=== PATIENT | female | born 1980 | race Caucasian/White ===

== ENCOUNTER 2018-05-10 06:55 | Inpatient (IN) | payer OTHER, SELFPAY ==
[2018-05-10 07:33] VITALS: BMI 32.8
[2018-05-10] MEDS: Lactated Ringers 1,000 ML 50 ML IV ×2 (07:50→13:30)
[2018-05-10] MEDS: Oxytocin 30 units/NS 500 ml 30 UNITS/500 ML IV.SOLN IV (08:00)
[2018-05-10 08:08] LABS: Hematocrit 35.5 % (37-47); Hemoglobin 11.4 g/dl (12.0-15.0); Mean Corp Hgb Conc 32.1 g/gl (32-36); Mean Corpuscular Hgb 29.5 pg (27.0-32.0); Mean Platelet Vol. 11.4 fl (6.2-12.0); Platelet Count 169 K/mm3 (150-450); RBC Distribution Width CV 15.1 % (11.6-14.6); RBC Distribution Width SD 50.6 fl (35.1-43.9); Red Blood Count 3.86 M/mm3 (4.2-5.4); White Blood Count 10.9 K/mm3 (4.4-11.0)
[2018-05-10 08:09] LABS: Scan Indicated on CBC? Y/N NO
--- NOTE | 2018-05-10 09:10 | PCM.HP.OB ---
- Problem List (1) History of spontaneous Status: Acute (2) Port wine stain Status: Acute (3) Advanced maternal age (AMA) in Status: Acute (4) History of precipitous delivery Status: Acute (5) Grand multipara in labor Status: Acute History Date of Admission: 05/10/18 Final FLAKO: 05/07/18 Final FLAKO Source: LMP Gestational age: 40 Weeks and 3 Days History of this : This is a 37 year-old, G [8], P [5005], at 40 weeks gestational age. Presents to L&D for Induction of Labor with Pitocin due to Advanced Maternal Age and post dates. See OB history. Allergies No Known Allergies Allergy (Verified 05/10/18 08:14) Home Medications: Home Medications Ferrous Sulfate [Iron] 1 tab PO DAILY 05/10/18 Magnesium Oxide [Magnesium] 1 tab PO DAILY 05/10/18 Pnv No.103/Folic/Om3s/Fish Oil [ Gummies] 2 tab PO DAILY 05/10/18 Smoking Status: Never smoker Alcohol: None Heart Tracin, moderate variability, accels, occasional variable decels, Category 2 TOCO Analysis: Irregular, mild to palpation. History Past Pregnancies: Past Pregnancies Delivery Date Name GA/Weeks Outcome Route Weight Gender Labor Length Anesthesia Delivery Location Provider FOB Labs: GBS negative RPR negative Rubella Immune HBsAG negative HIV negative Blood type A positive GC/CT negative Expected Delivery Method: Spontaneous Vaginal Review of Systems Constitutional: Denies: Chills, Fever, Weight Change HEENT: Denies: Head Aches, Sinus Congestion, Sinus Drainage Cardiovascular: Denies: Chest Pain, Palpitations Respiratory: Denies: Cough, Shortness of breath at rest, Sputum production Gastrointestinal: Denies: Abdominal Pain, Nausea, Vomiting Genitourinary: Denies: Dysuria Musculoskeletal: Denies: Joint Pain, Joint Tenderness Psychiatric: Denies: Anxiety, Depression, Homicidal Ideations, Suicidal Ideations Physical Exam General: Alert, Oriented x3, No apparent distress HEENT: Atraumatic, Normocephalic Cardiovascular: Regular rate, Regular Rhythm, No murmurs Lungs: Clear to auscultation, Normal air movement, No rhonchi, No wheeze Abdomen: Gravid Extremities:: No edema Neurological: Deep Tendon Reflexes 2+/4 and Symmetrical. Negative for: Clonus Estimated gestational size: Appropriate for gestational size Presentation: Cephalic Cervix Dilation (cm): 4 Station: -2 Effacement (%): 60 Assessment/Plan All Active Problems History of spontaneous (Acute) Port wine stain (Acute) Advanced maternal age (AMA) in (Acute) History of precipitous delivery (Acute) Grand multipara in labor (Acute) This is a 37 year-old, G [8], P [9845], at 40 weeks gestational age. A: Induction of Labor for AMA and postdates Category 1 FHT P: 1) Admit to L&D for IOL 2) Routine L&D orders. Continuous monitoring 3) Requesting unmedicated but open to epidural if needed. 4) for collaborative physician. Notified of plan of care. Lynn Matute APRN, CNM
[2018-05-10] MEDS: Acetaminophen 325 MG Tablet PO (12:06)
--- NOTE | 2018-05-10 13:28 | PCM.PN.OB ---
Patient Problems: Active and Suspected Problems History of spontaneous (Acute) Port wine stain (Acute) Advanced maternal age (AMA) in (Acute) History of precipitous delivery (Acute) Grand multipara in labor (Acute) Subjective: Into shower for pain relief effective for period of time. Back to bed and requesting nitrous. Coped well with nitrous but increasing pain and requesting epidural. supportive at the bedside. Objective: 135, minimal variability, no accel, no decel, Category 2 Contractions every 2 minutes. Pitocin off ROM small amount of light meconium 6cm/80%/-1 - Physical Exam Weight: 191 lb 9.6 oz Body Mass Index (BMI) 32.8 Intake and Output for Last 24 Hours 05/08/18 05/09/18 05/10/18 23:59 23:59 23:59 Intake Total 61 / 61 Output Total 100 / 100 Balance -39 / -39 Laboratory Tests Past 24 Hrs 05/10/18 05/10/18 07:50 07:50 WBC 10.9 RBC 3.86 L Hgb 11.4 L Hct 35.5 L MCV 92.0 MCH 29.5 MCHC 32.1 RDW 15.1 H RDW Differential 50.6 H Plt Count 169 MPV 11.4 Blood Type A POSITIVE Antibody Screen NEGATIVE Medical Necessity - Tobacco Use Smoking Status: Never smoker Assessment/Plan All Active Problems History of spontaneous (Acute) Port wine stain (Acute) Advanced maternal age (AMA) in (Acute) History of precipitous delivery (Acute) Grand multipara in labor (Acute) A:Active Labor, progressing Category 2 FHT P: 1) Anesthesia notified of patient requesting epidural. 2) Continuos labor support, coping well
[2018-05-10] MEDS: fentaNYL-bupivacaine (epidural) 100 ML BAG EPIDURAL (14:20)
[2018-05-10] MEDS: Oxytocin 30 units/NS 500 ml 30 UNITS/500 ML IV.SOLN 334 UNITS IV (16:13)
--- NOTE | 2018-05-10 16:29 | PCM.OB.VAG ---
- Problem List (1) History of spontaneous Status: Acute (2) Port wine stain Status: Acute (3) Advanced maternal age (AMA) in Status: Acute (4) History of precipitous delivery Status: Acute (5) Grand multipara in labor Status: Acute (6) Vaginal delivery Status: Acute (7) Shoulder dystocia, delivered Status: Acute (8) First degree perineal laceration during delivery Status: Acute Vaginal Delivery Maternal Presentation: Medically Indicated Induction - Advanced Maternal Age Amniotic Membrane Rupture Type: Artificial - Small amount of light meconium stained fluid Amniotic Fluid Description: Lightly stained meconium Final FLAKO: 05/07/18 Gestational age: 40 Weeks and 3 Days Date of Procedure: 05/10/18 Pre-Operative Diagnosis: Induction of Labor with Pitocin Post-Operative Diagnosis: Surgery/ Procedure Performed: Spontaneous Vaginal Delivery Type of Anesthesia: Epidural Description of Procedure: Progressed to complete with urge to push. Epidural for analgesia. of viable female infant over first degree perineal laceration. APGARS 8, 9. Weight pending. Delivery complicated by shoulder dystocia. head delivered with positive turtle sign and shoulders not forthcoming. McRobert's position with Suprapubic pressure applied. Woodscrew maneuver and attempted to remove posterior arm, anterior shoulder forthcoming and delivered. Placed on maternal abdomen, mouth and nares suctioned, infant stimulated, strong cry and good tone. Left skin to skin, Dr. Street present for delivery. Cord clamped and cut after 30 second delayed clamping. Cord gases obtained. Pitocin started for active 3rd stage management. Placenta delivered with maternal effort, intact, 3 vessel cord. Perineum inspected and revealed first degree perineal laceration. Repaired with epidural and 3.0 vicryl. Well approximated and hemostasis achieved. Fundus firm, EBL 200ml, hemostasis achieved. Planning to breastfeed. Mom and baby stable. Family bonding well. notified of delivery. Presentation: Vertex Placental Delivery Description: Spontaneous Placenta Disposition: [facility] Cord Vessel Description: 3 Vessels Cord Gases drawn per routine: ABG, VBG Cord Entanglement: None Estimated Blood Loss: 200ml Infant A gender: Female (1 minute): 8 (5 minute): 9 Episiotomy Description: None Laceration: Perineal Extension/lac, 1st degree Medications given after delivery: IV Pitocin
--- NOTE | 2018-05-10 16:37 | OP.PCM_ITS ---
- Problem List (1) History of spontaneous Status: Acute (2) Port wine stain Status: Acute (3) Advanced maternal age (AMA) in Status: Acute (4) History of precipitous delivery Status: Acute (5) Grand multipara in labor Status: Acute (6) Vaginal delivery Status: Acute (7) Shoulder dystocia, delivered Status: Acute (8) First degree perineal laceration during delivery Status: Acute Vaginal Delivery Maternal Presentation: Medically Indicated Induction - Advanced Maternal Age Amniotic Membrane Rupture Type: Artificial - Small amount of light meconium sta ined fluid Amniotic Fluid Description: Lightly stained meconium Final FLAKO: 05/07/18 Gestational age: 40 Weeks and 3 Days Date of Procedure: 05/10/18 Pre-Operative Diagnosis: Induction of Labor with Pitocin Post-Operative Diagnosis: Surgery/ Procedure Performed: Spontaneous Vaginal Delivery Type of Anesthesia: Epidural Description of Procedure: Progressed to complete with urge to push. Epidural for analgesia. of viable female over first degree perineal laceration. APGARS 8, 9. Weight pending. Delivery complicated by shoulder dystocia. Infant head delivered with positive turtle sign and shoulders not forthcoming. McRobert's position with Suprapubic pressure applied. Woodscrew maneuver and attempted to remove posterior arm, anterior shoulder forthcoming and delivered. Placed on maternal abdomen, mouth and nares suctioned, infant stimulated, strong cry and good tone. Left skin to skin, Dr. Street present for delivery. Cord clamped and cut after 30 second delayed clamping. Cord gases obtained. Pitocin started for active 3rd stage management. Placenta delivered with maternal effort, intact, 3 vessel cord. Perineum inspected and revealed first degree perineal laceration. Repaired with epidural and 3.0 vicryl. Well approximated and hemostasis achieved. Fundus firm, EBL 200ml, hemostasis achieved. Planning to breastfeed. Mom and baby stable. Family bonding well. notified of delivery. Presentation: Vertex Placental Delivery Description: Spontaneous Placenta Disposition: [facility] Cord Vessel Description: 3 Vessels Cord Gases drawn per routine: ABG, VBG Cord Entanglement: None Estimated Blood Loss: 200ml Infant A gender: Female (1 minute): 8 (5 minute): 9 Episiotomy Description: None Laceration: Perineal Extension/lac, 1st degree Medications given after delivery: IV Pitocin
[2018-05-10] MEDS: Oxytocin 30 units/NS 500 ml 30 UNITS/500 ML IV.SOLN 167 UNITS IV (16:43)
[2018-05-10] MEDS: Ibuprofen 600 MG Tablet PO (19:08)
[2018-05-10 20:45] VITALS: BP 116/57; PULSE 93; RESP 16; TEMP 37.1; O2SAT 97
[2018-05-10] MEDS: Acetaminophen 500 MG Tablet 1000 MG PO (21:26)
[2018-05-11 00:13] VITALS: BP 110/63; PULSE 83; RESP 16; TEMP 36.6; O2SAT 95
[2018-05-11 04:50] VITALS: BP 108/66; PULSE 86; RESP 14; TEMP 36.6; O2SAT 97
[2018-05-11 08:00] VITALS: BP 107/60; PULSE 92; RESP 18; TEMP 36.7
[2018-05-11] MEDS: Ibuprofen 600 MG Tablet PO (08:49)
[2018-05-11 13:56] VITALS: BP 107/65; PULSE 95; RESP 16; TEMP 36.6
--- NOTE | 2018-05-11 14:17 | PCM.PN.OB ---
Patient Problems: Active and Suspected Problems History of spontaneous (Acute) Port wine stain (Acute) Advanced maternal age (AMA) in (Acute) History of precipitous delivery (Acute) Grand multipara in labor (Acute) Vaginal delivery (Acute) Shoulder dystocia, delivered (Acute) First degree perineal laceration during delivery (Acute) Subjective: Doing well per patient and nursing staff. Voiding and passing flatus. without difficulty. Pain controlled. Denies headache, visual change's, chest pain, shortness of breath, increased vaginal bleeding or clots. Planning D/C home today. - Physical Exam General: Alert, Oriented x3, Cooperative HEENT: Atraumatic, Normocephalic Lungs: Clear to auscultation, Normal air movement, No rhonchi, No wheeze Cardiovascular: Regular rate, Regular Rhythm, No murmurs Abdomen: Bowel Sounds Present, - - fundus firm 2 below U Neurological: Deep Tendon Reflexes 2+/4 and Symmetrical Psych/Mental Status: Normal Affect, Appropriate Vital Signs Temp Pulse Resp BP Pulse Ox 97.9 F 95 16 107/65 97 05/11/18 13:56 05/11/18 13:56 05/11/18 13:56 05/11/18 13:56 05/11/18 04:50 Oxygen Delivery Method Room Air Weight: 191 lb 9.6 oz Body Mass Index (BMI) 32.8 Intake and Output for Last 24 Hours 05/09/18 05/10/18 05/11/18 23:59 23:59 23:59 Intake Total 61 / 61 Output Total 350 / 350 Balance -289 / -289 Medical Necessity - Tobacco Use Smoking Status: Never smoker Assessment/Plan All Active Problems History of spontaneous (Acute) Port wine stain (Acute) Advanced maternal age (AMA) in (Acute) History of precipitous delivery (Acute) Grand multipara in labor (Acute) Vaginal delivery (Acute) Shoulder dystocia, delivered (Acute) First degree perineal laceration during delivery (Acute) A:PPD #1 P: 1) Routine care 2) Discharge instructions and instructions given 3) Follow up in 2 weeks and 6 weeks for visit.
--- NOTE | 2018-05-11 14:24 | DCINST_ITS ---
Discharge Diet: No Restrictions Discharge Activity: Return to Normal Activity May resume sexual activity in: 4-6 weeks Weight Bearing Status: Full weight bearing Call your doctor if your incision/area has: Continuous Slow Oozing, Sudden Increased Bleeding, Increased Pain/ Swelling, Increased Redness, Foul Smelling Discharge Call your doctor if you observe: Fever of 101 or Higher, Coldness, Increased Pain, Numbness or Tingling, Inability to urinate, Inability to have a bowel movement, Using more than one pad per hour, Shortness of breath, Chest pain, Increased palpitations (irregular heartbeat), Calf discomfort, Uncontrolled pain Additional Instructions: If you experience any of the following, contact your healthcare provider. * Bleeding that soaks a pad every hour for 2 hours * Fever 100.4 or higher * Unrelieved incision or abdominal pain * Swelling, redness, discharge or bleeding from your incision or episiotomy site * Your incision begins to separate * Problems urinating (including inability to urinate or burning while urinating). * Visual changes * Severe headache * Flu-like symptoms * Pain or redness in one of both of your breasts * Pain, warmth, tenderness or swelling in your legs, especially the calf area * Frequent nausea and vomiting * Symptoms of depression or anxiety If you experience any of the following, call 911 or go to the nearest Emergency Room. * Chest pain * Problems breathing * Seizure activity * Partial or complete paralysis of a body part, slurred speech, weakness or drooping of the face, or a sudden inability to walk or hold your balance Allergies/Adverse Reactions: Allergies No Known Allergies Allergy (Verified 05/10/18 08:14) Medications to take at Discharge Pnv No.103/Folic/Om3s/Fish Oil [ Gummies] 2 tab PO DAILY 05/10/18 Acetaminophen [Tylenol] 1,000 mg PO Q8H PRN PRN tablet 05/11/18 Ibuprofen [Motrin] 600 mg PO Q6H PRN PRN #30 tablet 05/11/18 The following prescriptions were given: Ibuprofen [Motrin] 600 mg PO Q6H PRN PRN #30 tablet PRN Reason: Mild Pain (1-07/28) Please Follow Up With: Lynn Matute CNM When: Call to make an appointment with your doctor in 2 weeks and 6 weeks. If you had elevated Blood Pressure or 4th degree laceration you will need to be seen in 2 weeks. Primary Care Physician: Klever Reyes,Out of [Primary Care Provider] - Test Results: Test results from this visit will be discussed in further detail at your follow- up appointment, if applicable.
== END 2018-05-11 17:55 | disposition home or self-care (01) | DRG 807 ==
PROVIDERS: Admitting Provider Obstetrics & Gynecology; Referring Provider Obstetrics & Gynecology; Visit Provider Obstetrics & Gynecology
DX: O48.0 Post-term pregnancy (principal); Z37.0 Single live birth; O70.0 First degree perineal laceration during delivery; O26.23 Pregnancy care for patient with recurrent pregnancy loss, third trimester; O77.0 Labor and delivery complicated by meconium in amniotic fluid; Z3A.40 40 weeks gestation of pregnancy; Q82.5 Congenital non-neoplastic nevus
CPT/HCPCS: 59050; 85027; 86850; 86900; 99218; J7120; G0378

== ENCOUNTER 2020-02-11 06:35 | Inpatient (IN) | payer OTHER, SELFPAY ==
[2019-02-21 18:32] VITALS: BMI 26.5
[2020-02-11] VITALS (37 sets, daily range): BP systolic 97–116; BP diastolic 55–67; PULSE 71–161; RESP 16; TEMP 36.6–37.1; O2SAT 79–100; BMI 29.7
[2020-02-11] MEDS: Lactated Ringers 1,000 ML 50 ML IV (07:35)
[2020-02-11] MEDS: Oxytocin 30 units/NS 500 ml 30 UNITS/500 ML IV.SOLN IV (07:45)
[2020-02-11 08:23] LABS: Absolute Neutrophil Count 10.1 X10^3/uL (2.0-7.7); Basophil# 0.06 X10^3/uL; Basophil% 0.4 % (0-1); Eosinophil# 0.36 X10^3/uL; Eosinophils% 2.7 % (0-5); Hematocrit 31.9 % (37-47); Hemoglobin 9.7 g/dL (12.0-15.0); Lymphocyte % 12.5 % (19-41); Mean Corp Hgb Conc 30.4 g/dL (32-36); Mean Corpuscular Hgb 26.9 pg (27.0-32.0); Mean Corpuscular Volume 88.6 fL (81-99); Monocyte# 1.11 X10^3/uL; Monocyte% 8.2 % (0-10); NRBC Flagged by Analyzer 0 % (0-5); Neutrophil # 10.07 X10^3/uL (2.7-7.7); Neutrophil % 74.4 % (47-70); Platelet Count 205 K/mm3 (150-450); RBC Distribution Width CV 13.8 % (11.6-14.6); RBC Distribution Width SD 44.4 fl (35.1-43.9); White Blood Count 13.6 K/mm3 (4.4-11.0)
[2020-02-11] MEDS: Lactated Ringers 500 ML 999 ML IV (08:25)
--- NOTE | 2020-02-11 08:46 | PCM.HP.OB ---
History Date of Admission: 05/10/18 Final FLAKO: 02/17/20 Final FLAKO Source: LMP Gestational age: 39 Weeks and 1 Days History of this : This is a 39 year-old 9 para 6-0-2-6 @39-1/7 weeks gestation with a EDC of 02/17/2020 presents for induction of labor due to having 19 during and urine for possible adverse outcomes after COVID 19 infection. Had some irregular contractions. She denies any vaginal bleeding or leaking of fluid. has been complicated to date byCovid 19 infection, ho shoulder dystocia in one previous and advanced maternal age. Medical history significant for migraine headaches, kidney stones, port wine stain, and anemia and irritable bowel syndrome Past deliveries are significant for history of a precipitous delivery, and also history of a shoulder dystocia with her largerst infant it was mild and there were no adverse maternal or outcomes. Medical History: Medical History (Last Updated 02/21/19 @ 18:41 by Clemencia Garcia TEXTILE DESIGNS SALES REPRESENTATIVE, TEXTILE DESIGNS SALES REPRESENTATIVE-C) Miscarriage O03.9 2 out of 8 pregnancies lazor surgery on the R arm for her port wine Surgical History: Surgical History (Last Updated 02/21/19 @ 18:41 by Clemencia Garcia TEXTILE DESIGNS SALES REPRESENTATIVE, TEXTILE DESIGNS SALES REPRESENTATIVE-C) Port-wine stain of skin Q82.5 cyst i each breast after the last 2 pregnanacies both benign mammogram neg at age 38 Allergies No Known Allergies Allergy (Verified 02/11/20 08:27) Home Medications: Home Medications Aspirin [Aspirin, Baby] 81 mg PO QHS 02/11/20 Smoking Status: Never smoker Alcohol: None Number of Fetus(es): 1 History Past Pregnancies: Past Pregnancies Delivery Date Name GA/ Weeks Outcome Route Wt Infant Sex Labor Length Anesthesia Delivery Location Provider FOB Expected Delivery Method: Spontaneous Vaginal Review of Systems Constitutional: Denies: Chills, Fever Eyes: Denies: Blurred vision Cardiovascular: Denies: Chest Pain Respiratory: Denies: Cough, Shortness of Breath Gastrointestinal: Denies: Diarrhea, Vomiting Genitourinary: Denies: Dysuria Neurological: Denies: Balance problems, Blurred vision, Change in Speech, Confusion Hematologic/ Lymphatic: Denies: Anemia, Hx of blood clot Physical Exam Vitals: Vital Signs Temp Pulse BP Pulse Ox 98.2 F 90 107/63 100 02/11/20 08:17 02/11/20 08:18 02/11/20 08:17 02/11/20 08:18 General: Alert, Cooperative, No apparent distress Cardiovascular: Regular rate Lungs: Normal air movement Abdomen: Soft, Non Tender, Non-Distended, Gravid, Appropriate for Gestational Age Extremities:: Other - edema - trace Neurological: Neuro grossly intact. Negative for: Cranial nerves II-XII grossly intact, Slurred Speech PROGRAMMER NUMERICAL CONTROL: Normal external genitalia Estimated gestational size: Appropriate for gestational size Presentation: Cephalic Assessment/Plan All Active Problems (Last Updated 02/21/19 @ 18:41 by Clemencia Garcia TEXTILE DESIGNS SALES REPRESENTATIVE, TEXTILE DESIGNS SALES REPRESENTATIVE-C) Wellness examination (Acute) History of spontaneous (Acute) Port wine stain (Acute) Advanced maternal age (AMA) in (Acute) History of precipitous delivery (Acute) Grand multipara in labor (Acute) Vaginal delivery (Acute) Shoulder dystocia, delivered (Acute) First degree perineal laceration during delivery (Acute) This is a 39 year-old, 9 para 6-0-2-6 at 39 weeks gestation. Here for induction of labor due to history of COVID-19 infection during . Also advanced maternal age. She is a grand multipara. Risk benefits and alternatives to induction of labor been discussed with the patient, her questions were answered to her satisfaction she desires to proceed. She does have a history of shoulder dystocia, but proceeding with vaginal delivery is reasonable as this will be her seventh vaginal delivery and she had 1 mild shoulder dystocia. Estimated weight is less than 4500 g clinically and by ultrasound. Pelvis is clinically adequate to expect vaginal delivery. May have epidural or other pain control measures as desired.
[2020-02-11] MEDS: fentaNYL-bupivacaine (epidural) 100 ML BAG EPIDURAL (09:27)
[2020-02-11] MEDS: Lactated Ringers 1,000 ML 200 ML IV (12:20)
[2020-02-11] MEDS: Oxytocin 30 units/NS 500 ml 30 UNITS/500 ML IV.SOLN 334 UNITS IV (14:32)
--- NOTE | 2020-02-11 14:43 | PCM.OPRPT ---
Vaginal Delivery Maternal Presentation: Medically Indicated Induction Method of Induction: Pitocin, Amniotomy Medical Reason for Induction: - - advanced maternal age, history Amniotic Membrane Rupture Type: Artificial Amniotic Fluid Description: Clear Final FLAKO: 02/18/20 Final FLAKO Source: [place] <20 weeks Gestational age: 39 Weeks and 0 Days Date of Procedure: 02/11/20 Pre-Operative Diagnosis: labor Post-Operative Diagnosis: same Surgery/ Procedure Performed: Spontaneous Vaginal Delivery Type of Anesthesia: Epidural Description of Procedure: of vigorous male OSCAR over first degree perineal laceration. Loose nuchal cord x 1 easily reduced. Shoulders delivered with one maternal push and minimal downward traction in < 15 seconds without difficulty. Spontaneous delivery of placenta intact with 3 vessel cord. Cervix and vagina intact. First degree laceration repaired with 3-0 vicryl suture in a running standard fashion. Delivery time: 1331 Presentation: OSCAR Placental Delivery Description: Spontaneous Placenta Disposition: [facility] Cord Vessel Description: 3 Vessels Nuchal Cord Compression: Without compression Cord Entanglement: Around neck x 1, loose Drain: Burnett to straight drain Estimated Blood Loss: 300 A gender: Male - Landen (1 minute): 7 (5 minute): 9 Episiotomy Description: None Laceration: 1st degree - perineal Medications given after delivery: IV Pitocin Complications: None
--- NOTE | 2020-02-11 15:09 | NURSING ---
student nurse working side by side with labor nurse. charting by student used for educational and learning purposes.
[2020-02-12] VITALS: BP 110/61; PULSE 84; RESP 16; TEMP 36.6
[2020-02-12] MEDS: Naproxen 250 MG Tablet 500 MG PO ×3 (00:02→17:07)
[2020-02-12 04:00] VITALS: BP 95/53; PULSE 72; RESP 16; TEMP 36.7
[2020-02-12] MEDS: Acetaminophen 500 MG Tablet 1000 MG PO ×2 (04:57→13:14)
[2020-02-12 08:00] VITALS: BP 100/60; PULSE 79; RESP 16; TEMP 36.5; O2SAT 98
--- NOTE | 2020-02-12 08:33 | PN.OBGYN_ITS ---
Subjective: Patient seen at bedside. Reports feeling good. Denies any pain. Ambulating and voiding without difficulty. going well. Desires discharge home today at 24 hours. - Physical Exam Vitals/I&O's: Vital Signs Temp Pulse Resp BP Pulse Ox 97.7 F L 79 16 100/60 98 02/12/20 08:00 02/12/20 08:00 02/12/20 08:00 02/12/20 08:00 02/12/20 08:00 Oxygen Delivery Method Room Air Weight: 173 lb Body Mass Index (BMI) 29.7 Intake and Output for Last 24 Hours 02/10/20 02/11/20 02/12/20 23:59 23:59 23:59 Intake Total 2723.38 / 2723.38 Output Total 800 / 800 Balance 1923.38 / 1923.38 General: Alert, Oriented x3, Cooperative Oral: Moist Mucosa Neck: Supple Lungs: Normal air movement Cardiovascular: Regular rate Abdomen: Soft, Non Tender Skin: No rashes Neurological: Cranial nerves II-XII grossly intact Psych/Mental Status: Normal Affect Laboratory Results 02/11/20 07:35: Blood Type A POSITIVE, Antibody Screen NEGATIVE Current Medications Acetaminophen (Tylenol) 1,000 mg PO Q8H PRN PRN PRN Reason: Pain Score 1-10/10 Last Admin: 02/12/20 04:57 Dose: 1,000 mg Documented by: Bisacodyl (Dulcolax) 10 mg RECTAL UD PRN PRN Reason: If no BM Dibucaine (Dibucaine) 1 applic TOPICAL TID PRN PRN; Protocol PRN Reason: Discomfort Hydrocortisone (Hytone) 1 applic TOPICAL TID PRN PRN; Protocol PRN Reason: Discomfort Methylergonovine Maleate (Methergine) 0.2 mg IM X1 PRN PRN Reason: Excess bleeding/uterine atony Naproxen (Naprosyn) 500 mg PO Q8H PRN PRN PRN Reason: Pain Score 1-10/10 Last Admin: 02/12/20 08:12 Dose: 500 mg Documented by: Ondansetron HCl (Zofran) 4 mg IV Q4H PRN PRN PRN Reason: Nausea Prochlorperazine Edisylate (Compazine Iv) 10 mg IV Q6H PRN PRN PRN Reason: NAUSEA/VOMITING Senna/Docusate Sodium (Senokot-S, Sasha-Colace) 1 - 2 tablet PO DAILY PRN PRN PRN Reason: Constipation Simethicone (Mylicon) 80 mg PO PCHS PRN PRN Reason: Indigestion/Stomach pain Sodium Chloride () 5 - 15 ml IV UD PRN PRN Reason: SALINE FLUSH Medical Necessity - Tobacco Use Smoking Status: Never smoker Assessment/Plan All Active Problems (Last Updated 02/21/19 @ 18:41 by Clemencia Garcia TELEPHONE ORDER DISPATCHER, TELEPHONE ORDER DISPATCHER-C) Wellness examination (Acute) History of spontaneous (Acute) Port wine stain (Acute) Advanced maternal age (AMA) in (Acute) History of precipitous delivery (Acute) Grand multipara in labor (Acute) Vaginal delivery (Acute) Shoulder dystocia, delivered (Acute) First degree perineal laceration during delivery (Acute) A/P PPD #1 - 1st degree laceration Pain management Routine care support Discharge home today
--- NOTE | 2020-02-12 08:37 | DCINST_ITS ---
Discharge Diet: No Restrictions Additional Instructions: If you experience any of the following, contact your healthcare provider. * Bleeding that soaks a pad every hour for 2 hours * Fever 100.4 or higher * Unrelieved incision or abdominal pain * Swelling, redness, discharge or bleeding from your incision or episi otomy site * Your incision begins to separate * Problems urinating (including inability to urinate or burning while urinating). * Visual changes * Severe headache * Flu-like symptoms * Pain or redness in one of both of your breasts * Pain, warmth, tenderness or swelling in your legs, especially the calf area * Frequent nausea and vomiting * Symptoms of depression or anxiety If you experience any of the following, call 911 or go to the nearest Emergency Room. * Chest pain * Problems breathing * Seizure activity * Partial or complete paralysis of a body part, slurred speech, weakness or drooping of the face, or a sudden inability to walk or hold your balance Allergies/Adverse Reactions: Allergies No Known Allergies Allergy (Verified 02/11/20 08:27) When: 2 weeks virtual visit/ 6 weeks in office Primary Care Physician: Care Physician,No Primary [Primary Care Provider] - Test Results: Test results from this visit will be discussed in further detail at your follow- up appointment, if applicable.
--- NOTE | 2020-02-12 08:37 | PCM.DCVAG ---
Discharge Diet: No Restrictions Additional Instructions: If you experience any of the following, contact your healthcare provider. Bleeding that soaks a pad every hour for 2 hours Fever 100.4 or higher Unrelieved incision or abdominal pain Swelling, redness, discharge or bleeding from your incision or episiotomy site Your incision begins to separate Problems urinating (including inability to urinate or burning while urinating). Visual changes Severe headache Flu-like symptoms Pain or redness in one of both of your breasts Pain, warmth, tenderness or swelling in your legs, especially the calf area Frequent nausea and vomiting Symptoms of depression or anxiety If you experience any of the following, call 911 or go to the nearest Emergency Room. Chest pain Problems breathing Seizure activity Partial or complete paralysis of a body part, slurred speech, weakness or drooping of the face, or a sudden inability to walk or hold your balance Allergies/Adverse Reactions: Allergies No Known Allergies Allergy (Verified 02/11/20 08:27) When: 2 weeks virtual visit/ 6 weeks in office Primary Care Physician: Care Physician,No Primary [Primary Care Provider] - Test Results: Test results from this visit will be discussed in further detail at your follow-up appointment, if applicable.
[2020-02-12 13:01] VITALS: BP 110/62; PULSE 82; RESP 16; TEMP 36.6; O2SAT 98
[2020-02-12 15:58] VITALS: BP 103/57; PULSE 78; RESP 16; TEMP 36.3; O2SAT 97
[2020-02-12 17:27] VITALS: RESP 16
== END 2020-02-12 17:20 | disposition home or self-care (01) | DRG 807 ==
PROVIDERS: Admitting Provider Obstetrics & Gynecology; Visit Provider Obstetrics & Gynecology
DX: O70.0 First degree perineal laceration during delivery (principal); Z37.0 Single live birth; O26.23 Pregnancy care for patient with recurrent pregnancy loss, third trimester; O69.1XX0 Labor and delivery complicated by cord around neck, with compression, not applicable or unspecified; Z3A.39 39 weeks gestation of pregnancy; Z86.19 Personal history of other infectious and parasitic diseases; Z87.442 Personal history of urinary calculi; Q82.5 Congenital non-neoplastic nevus
CPT/HCPCS: 59025; 59050; 85025; 86850; 86900; 86901; 99218; J7120; G0378

== ENCOUNTER → 2021-01-20 21:32 | Outpatient (CLI) | payer OTHER, SELFPAY ==
[2021-01-20 22:31] LABS: Absolute Lymphocyte Count 1.95 X10^3/uL (0.83-4.51); Absolute Neutrophil Count 2.4 X10^3/uL (2.0-7.7); Basophil# 0.04 X10^3/uL; Basophil% 0.8 % (0-1); Eosinophil# 0.15 X10^3/uL; Eosinophils% 3.1 % (0-5); Hematocrit 38.1 % (37-47); Hemoglobin 12.2 g/dL (12.0-15.0); Lymphocyte # 1.95 X10^3/ul (0.83-4.51); Lymphocyte % 39.8 % (19-41); Mean Corpuscular Hgb 29.5 pg (27.0-32.0); Mean Platelet Vol. 11.2 fl (6.2-12.0); Monocyte# 0.39 X10^3/uL; NRBC Flagged by Analyzer 0 % (0-5); Neutrophil # 2.36 X10^3/uL (2.7-7.7); Neutrophil % 48.1 % (47-70); Platelet Count 198 K/mm3 (150-450); RBC Distribution Width CV 12.7 % (11.6-14.6); RBC Distribution Width SD 43.1 fl (35.1-43.9); Red Blood Count 4.14 M/mm3 (4.2-5.4); White Blood Count 4.9 K/mm3 (4.4-11.0)
[2021-01-20 22:44] LABS: ALB/GLOB Ratio 1.1 RATIO (0.9-2.4); AST(SGOT) 17 U/L (15-37); Alanine Aminotransfer ALT/SGPT 26 U/L (13-56); Albumin, Serum 3.8 g/dL (3.2-5.0); Alkaline Phosphatase 70 U/L (45-117); Anion Gap 2 (5-15); BUN 17 mg/dL (7-18); BUN/Creat Ratio 26.2 RATIO (10-20); Calcium,Total 8.9 mg/dL (8.5-10.1); Chloride 108 mmol/L (98-107); Cholesterol 161 mg/dL (200); Creatinine, Serum 0.65 mg/dL (0.55-1.02); EST Glomerular Filtration Rate 107 mL/min (>60); Est Glom Filt Rate - Afr Amer 130 mL/min (>60); Globulin 3.4 g/dL (2.2-4.2); Glucose 90 mg/dL (74-106); High Density Lipoprotein 65 mg/dL; Potassium 4.3 mmol/L (3.5-5.1); Protein, Total 7.2 g/dL (6.4-8.2); Sodium Level 141 mmol/L (136-145); Triglycerides 130 mg/dL; Very Low Density Lipoprotein 26 mg/dL (5-40)
== END ==
PROVIDERS: Visit Provider Nurse Practitioner
DX: Z00.00 Encounter for general adult medical examination without abnormal findings (principal)
CPT/HCPCS: 80053; 80061; 85025

== ENCOUNTER → 2021-04-18 21:37 | Outpatient (CLI) | payer OTHER, SELFPAY ==
[2021-04-18 22:22] LABS: Absolute Lymphocyte Count 1.54 X10^3/uL (0.83-4.51); Absolute Neutrophil Count 1.7 X10^3/uL (2.0-7.7); Basophil# 0.05 X10^3/uL; Basophil% 1.4 % (0-1); Eosinophil# 0.11 X10^3/uL; Hematocrit 37.3 % (37-47); Hemoglobin 11.7 g/dL (12.0-15.0); Lymphocyte # 1.54 X10^3/ul (0.83-4.51); Lymphocyte % 41.8 % (19-41); Mean Corp Hgb Conc 31.4 g/dL (32-36); Mean Corpuscular Hgb 29.8 pg (27.0-32.0); Mean Corpuscular Volume 94.9 fL (81-99); Mean Platelet Vol. 11.1 fl (6.2-12.0); Monocyte# 0.29 X10^3/uL; Monocyte% 7.9 % (0-10); NRBC Flagged by Analyzer 0 % (0-5); Neutrophil # 1.68 X10^3/uL (2.7-7.7); Neutrophil % 45.6 % (47-70); Platelet Count 187 K/mm3 (150-450); RBC Distribution Width SD 42.3 fl (35.1-43.9); Red Blood Count 3.93 M/mm3 (4.2-5.4); White Blood Count 3.7 K/mm3 (4.4-11.0)
== END ==
PROVIDERS: PCP Nurse Practitioner; Visit Provider Nurse Practitioner
DX: O03.9 Complete or unspecified spontaneous abortion without complication (principal)
CPT/HCPCS: 81241; 85025

== ENCOUNTER → 2022-01-16 | Outpatient (CLI) | payer OTHER, SELFPAY ==
[2022-01-16 23:02] LABS: Absolute Lymphocyte Count 1.67 X10^3/uL (0.83-4.51); Absolute Neutrophil Count 6.4 X10^3/uL (2.0-7.7); Basophil# 0.04 X10^3/uL; Basophil% 0.4 % (0-1); Eosinophil# 0.25 X10^3/uL; Eosinophils% 2.7 % (0-5); Hematocrit 32.3 % (37-47); Hemoglobin 10.9 g/dL (12.0-15.0); Lymphocyte # 1.67 X10^3/ul (0.83-4.51); Lymphocyte % 18.3 % (19-41); Mean Corp Hgb Conc 33.7 g/dL (32-36); Mean Corpuscular Hgb 32.5 pg (27.0-32.0); Mean Corpuscular Volume 96.4 fL (81-99); Mean Platelet Vol. 11.2 fl (6.2-12.0); Monocyte# 0.66 X10^3/uL; Monocyte% 7.2 % (0-10); NRBC Flagged by Analyzer 0 % (0-5); Neutrophil # 6.42 X10^3/uL (2.7-7.7); Neutrophil % 70.4 % (47-70); Platelet Count 193 K/mm3 (150-450); RBC Distribution Width CV 12.3 % (11.6-14.6); RBC Distribution Width SD 43.1 fl (35.1-43.9); Red Blood Count 3.35 M/mm3 (4.2-5.4); White Blood Count 9.1 K/mm3 (4.4-11.0)
[2022-01-16 23:25] LABS: ALB/GLOB Ratio 0.7 RATIO (0.9-2.4); AST(SGOT) 19 U/L (15-37); Alanine Aminotransfer ALT/SGPT 16 U/L (13-56); Albumin, Serum 2.5 g/dL (3.2-5.0); Alkaline Phosphatase 86 U/L (45-117); Anion Gap 6 (5-15); BUN 6 mg/dL (7-18); Calcium,Total 8.2 mg/dL (8.5-10.1); Chloride 109 mmol/L (98-107); Cholesterol 395 mg/dL (200); Creatinine, Serum 0.55 mg/dL (0.55-1.02); EST Glomerular Filtration Rate 130 mL/min (>60); Est Glom Filt Rate - Afr Amer 158 mL/min (>60); Globulin 3.6 g/dL (2.2-4.2); Glucose 73 mg/dL (74-106); High Density Lipoprotein 49 mg/dL; Protein, Total 6.1 g/dL (6.4-8.2); Sodium Level 137 mmol/L (136-145); Triglycerides 324 mg/dL; Very Low Density Lipoprotein 65 mg/dL (5-40)
== END | disposition home or self-care (01) ==
PROVIDERS: Visit Provider Nurse Practitioner
DX: Z00.00 Encounter for general adult medical examination without abnormal findings (principal)
CPT/HCPCS: 80053; 80061; 85025

== ENCOUNTER 2022-03-07 06:42 | Inpatient (IN) | payer OTHER, SELFPAY ==
[2022-03-07] VITALS (61 sets, daily range): BP systolic 98–126; BP diastolic 52–73; PULSE 75–103; TEMP 36.8–36.9; O2SAT 83–100; BMI 32.5
--- NOTE | 2022-03-07 08:03 | HP.PCM.OB_ITS ---
HPI - General General Date of Admission: 03/07/22 HPI Narrative CARLOS BARBER, is a 41 F at 39.1 weeks gestation who presents for scheduled induction of labor for AMA, HX of shoulder dystocia, Hx of macrosomia and grand multipara. Maternal Data Information FLAKO Calculator Estimated Delivery Date Method Current WG Current Estimate 03/13/22 Manual 39w 1d PFSH PFSH Medical History lazor surgery on the R arm for her port wine Miscarriage Home Medications aspirin 81 mg tablet,delayed release 81 mg PO DAILY 03/07/22 [History Last Taken 03/06/22 22:00] magnesium 500 mg tablet 15 mg PO DAILY 03/07/22 [History Last Taken 03/06/22 22:00] Allergy/AdvReac Type Severity Reaction Status Date / Time No Known Allergies Allergy Verified 03/07/22 07:24 Surgical History cyst i each breast after the last 2 pregnanacies History of surgery Port-wine stain of skin Social History Smoking Status: Never smoker History Elective abortions Hx Para 7 Spontaneous abortions Hx # Term Pregnancies Ectopic pregnancies Hx # Pregnancies Multiple births # of living children ROS Eyes Eyes: Denies blurry vision, change in vision or spots in vision ENT HEENT: Denies dizziness or headache(s) Cardiovascular Cardiovascular: Denies abdominal pain, chest pain or dyspnea Respiratory/Chest Respiratory/Chest: Denies cough, dyspnea, shortness of breath at rest or shortness of breath with exertion Gastrointestinal Gastrointestinal: Denies abdominal pain, diarrhea or vomiting Genitourinary Genitourinary: Denies change in urinary stream, difficulty urinating or dysuria Musculoskeletal Musculoskeletal: Reports none Integumentary Integumentary: Denies rash Neurologic Neurologic: Denies dizziness, headache(s), memory loss or weakness Psychiatric Psychiatric: Reports none Vital Signs Vital Signs Vital Signs: 03/07/22 07:57 03/07/22 07:57 Pulse Rate 88 Blood Pressure 107/60 BP Systolic 107 BP Diastolic 60 Weight Weight: 190 lb 0.615 oz Body Mass Index (BMI) 32.5 Physical Exam Const alert, oriented x3 and no apparent distress General Appearance: cooperative Orientation / Consciousness: awake Exam Limitations: no limitations HEENT normocephalic Head and Scalp: normal to inspection Eyes General Eye: normal appearance of both eyes Neck full ROM and no lymphadenopathy Lymph Lymphatic: no lymphadenopathy noted Chest inspection of chest normal Resp normal respiratory effort, normal air movement and clear to auscultation bila terally Effort and Inspection: able to speak in complete sentences and symmetric chest movement Cardio regular rate and regular rhythm GI normal to inspection, nondistended, normoactive bowel sounds Manual OB Exam: presentation cephalic, dilated 3, effaced 60 and station - 2 Back/Spine normal ROM Extremity full ROM and no calf tenderness Skin no rashes or lesions noted General Skin Exam: no breakdown Neuro oriented x3 and CN's II-XII intact bilaterally Psych mental status grossly normal and thought process normal Labs Labs Labs: Blood Type A POSITIVE Antibody Screen NEGATIVE Hct 32.9 % (37-47) L Hgb 10.3 g/dL (12.0-15.0) L Rhogam given: No Assessment & Plan (1) Advanced maternal age (AMA) in : (2) History of precipitous delivery: (3) Grand multipara in labor: (4) History of shoulder dystocia: (5) 39 weeks gestation of : (6) Encounter for induction of labor: PLAN: Plan Admit to labor and delivery for scheduled induction of labor Routine labs Start IV fluids and titrate per orders GBS negative Epidural when indicated Start Pitocin 2 mu/min and increase per policy Anticipate Dr. Reece notified of admission and is collaborating physician
[2022-03-07] MEDS: Lactated Ringers 1,000 ML 200 ML IV ×3 (08:15→19:42)
[2022-03-07 08:31] LABS: Absolute Lymphocyte Count 1.49 X10^3/uL (0.83-4.51); Absolute Neutrophil Count 7.2 X10^3/uL (2.0-7.7); Basophil# 0.04 X10^3/uL; Basophil% 0.4 % (0-1); Eosinophil# 0.21 X10^3/uL; Eosinophils% 2.1 % (0-5); Hematocrit 32.9 % (37-47); Hemoglobin 10.3 g/dL (12.0-15.0); Lymphocyte # 1.49 X10^3/ul (0.83-4.51); Mean Corp Hgb Conc 31.3 g/dL (32-36); Mean Corpuscular Hgb 29.2 pg (27.0-32.0); Mean Corpuscular Volume 93.2 fL (81-99); Mean Platelet Vol. 11.7 fl (6.2-12.0); Monocyte# 0.88 X10^3/uL; Monocyte% 8.9 % (0-10); NRBC Flagged by Analyzer 0 % (0-5); Neutrophil # 7.18 X10^3/uL (2.7-7.7); Neutrophil % 72.3 % (47-70); Platelet Count 173 K/mm3 (150-450); RBC Distribution Width CV 12.9 % (11.6-14.6); RBC Distribution Width SD 43.8 fl (35.1-43.9); Red Blood Count 3.53 M/mm3 (4.2-5.4); White Blood Count 9.9 K/mm3 (4.4-11.0)
[2022-03-07] MEDS: Oxytocin 15 Units/NS 250ml 15 UNITS/250 ML IV.SOLN 2 UNITS IV (08:34)
[2022-03-07] MEDS: LACTATED RINGERS 500 ML 999 ML IV (11:19)
[2022-03-07] MEDS: fentaNYL-bupivacaine (epidural) 100 ML BAG EPIDURAL ×3 (12:02→19:52)
--- NOTE | 2022-03-07 16:34 | PN.OBGYN_ITS ---
Subjective Subjective Patient seen at bedside. Comfortable with replacement epidural. Objective Data Objective Data Vital Signs: Vital Signs Temp Pulse BP Pulse Ox 98.3 F 81 107/61 100 03/07/22 13:19 03/07/22 16:11 03/07/22 16:11 03/07/22 14:38 Weight: 190 lb 0.615 oz Body Mass Index (BMI) 32.5 Intake & Output: Intake and Output for Last 24 Hours 03/05/22 03/06/22 03/07/22 23:59 23:59 23:59 Intake Total 1532.96 / 1532.96 Output Total 300 / 300 Balance 1232.96 / 1232.96 Lab / Micro Data Result Diagrams: 03/07/22 08:05 Labs: Laboratory Results - last 24 hr 03/07/22 08:05: WBC 9.9, RBC 3.53 L, Hgb 10.3 L, Hct 32.9 L, MCV 93.2, MCH 29.2, MCHC 31.3 L, RDW Std Deviation 43.8, RDW Coeff of Hailey 12.9, Plt Count 173, MPV 11.7, Immature Gran % (Auto) 1.300 H, Neut % (Auto) 72.3 H, Lymph % (Auto) 15.0 L, [place] % (Auto) 8.9, Eos % (Auto) 2.1, Baso % (Auto) 0.4, Absolute Neuts (auto) 7.2, Absolute Lymphs (auto) 1.49, Nucleated RBC % 0 03/07/22 08:05: Blood Type A POSITIVE, Antibody Screen NEGATIVE Micro: Microbiology 03/07/22 08:05 Nasal Secretion SARS-CoV-2 Antigen (Rapid) - Final ROS Eyes Eyes: Denies blurry vision, change in vision or spots in vision ENT HEENT: Denies dizziness or headache(s) Cardiovascular Cardiovascular: Denies abdominal pain, chest pain or dyspnea Respiratory/Chest Respiratory/Chest: Denies cough, dyspnea, shortness of breath at rest or shortness of breath with exertion Gastrointestinal Gastrointestinal: Denies abdominal pain, diarrhea or vomiting Genitourinary Genitourinary: Denies change in urinary stream, difficulty urinating or dysuria Musculoskeletal Musculoskeletal: Reports none Integumentary Integumentary: Denies rash Neurologic Neurologic: Denies dizziness, headache(s), memory loss or weakness NST FHR Rate Baby A Baseline: 120 Variability:: Moderate Accelerations:: 15 x 15 Decelerations:: None NST Reactive:: Yes FHR Category:: Category I Uterine Activity:: 2-3 minutes via TOCO Assessment & Plan (1) Encounter for induction of labor: (2) 39 weeks gestation of : (3) Advanced maternal age (AMA) in : PLAN: Plan CAT 1 tracing, NST reactive CE- 5/70/-2 AROM for moderate amount of clear fluid IUPC placed without difficulty to monitor MVUs Pitocin 8 mu/min- continue to increase per policy Anticipate
--- NOTE | 2022-03-07 20:55 | EX.PCM.OBRPT ---
Assessment & Plan (1) Vaginal delivery: (2) Care and examination of lactating mother: (3) Laceration, obstetrical, second degree: Maternal Data Information FLAKO Calculator Estimated Delivery Date Method Current WG Current Estimate 03/13/22 Manual 39w 1d Vaginal Delivery Maternal Presentation Maternal Presentation: Medically Indicated Induction Maternal Presentation: Patient is at 39.1 weeks gestation for induction of labor for AMA, history of macrosomia, history of shoulder dystocia. Type of Induction: Pitocin and Amniotomy Medical Reason for Induction: Maternal Medical Condition: list: (AMA) Operative Information Date of Procedure: 03/07/22 Pre-Operative Diagnosis: Term gestation, Induction of labor Post-Operative Diagnosis: , live female infant Surgery / Procedure Performed: Spontaneous Vaginal Delivery Type of Anesthesia: Epidural Drain: Burnett to straight drain Estimated Blood Loss: 250 Time of Delivery: 20:17 Findings Description of Procedure: Called to patient's room for complete dilation and +2 station. With next push, head delivered followed by anterior shoulder and remainder of infant body. Vigorous female placed on maternal abdomen and attended to by nursing. Pitocin IV started for active management of the third stage of labor. 3 vessel cord clamped and cut by FOB after 2 minute delay. Placenta delivered spontaneously and intact. Second degree laceration repaired in usual fashion using Vicryl rapid 3-0. Hemostasis obtained. Fundus firm 1 below U. EBL 250 cc APGARS 8/9. Patient and bonding well at this time. Dr. Reece notified of delivery. Presentation: Vertex Amniotic Membrane Rupture Type: Artificial Time of Membrane Rupture: 1629 Amniotic Fluid Description: Clear Placental Delivery Description: Spontaneous Placenta Disposition: [facility] Cord Vessel Description: 3 Vessels Cord Entanglement: None Infant A Gender: Female (1 minute): 8 (5 minute): 9 Delayed Cord Clamping: Yes Post Vaginal Delivery Medications Given After Delivery: IV Pitocin Episiotomy Description: None Laceration: 2nd degree Complication Complications: None
[2022-03-07] MEDS: Oxytocin 15 Units/NS 250ml 15 UNITS/250 ML IV.SOLN 83 UNITS IV (21:00)
[2022-03-07] MEDS: Naproxen 500 MG Tablet PO (22:06)
--- NOTE | 2022-03-08 01:14 | NURSING ---
epidural cath removed. blue tip intact.
[2022-03-08 04:15] VITALS: BP 101/48; PULSE 79; RESP 18
--- NOTE | 2022-03-08 08:21 | PN_ITS ---
Subjective Subjective patient seen at bedside, doing well. Patient reports good pain control. lochia mild. breast feeding well. Objective Data Objective Data Vital Signs: Vital Signs Temp Pulse Resp BP Pulse Ox O2 Del Method 98.4 F 79 18 101/48 L 98 Room Air 03/07/22 19:19 03/08/22 04:15 03/08/22 04:15 03/08/22 04:15 03/07/22 20:46 03/08/22 04:15 Oxygen Delivery Method Room Air Weight: 86.2 kg Body Mass Index (BMI) 32.5 Intake & Output: Intake and Output for Last 24 Hours 03/06/22 03/07/22 03/08/22 23:59 23:59 23:59 Intake Total 4026.00 / 4026.00 250 / 250 Output Total 1600 / 1600 300 / 300 Balance 2426.00 / 2426.00 -50 / -50 Lab / Micro Data Result Diagrams: 03/07/22 08:05 Labs: Laboratory Results - last 24 hr 03/07/22 08:05: WBC 9.9, RBC 3.53 L, Hgb 10.3 L, Hct 32.9 L, MCV 93.2, MCH 29.2, MCHC 31.3 L, RDW Std Deviation 43.8, RDW Coeff of Hailey 12.9, Plt Count 173, MPV 11.7, Immature Gran % (Auto) 1.300 H, Neut % (Auto) 72.3 H, Lymph % (Auto) 15.0 L, [place] % (Auto) 8.9, Eos % (Auto) 2.1, Baso % (Auto) 0.4, Absolute Neuts (auto) 7.2, Absolute Lymphs (auto) 1.49, Nucleated RBC % 0 03/07/22 08:05: Blood Type A POSITIVE, Antibody Screen NEGATIVE Micro: Microbiology 03/07/22 08:05 Nasal Secretion SARS-CoV-2 Antigen (Rapid) - Final Physical Exam Const alert and oriented x3 General Appearance: cooperative HEENT normocephalic Neck General: normal visual inspection GI soft to palpation and non-distended GI Narrative: Fundus firm Extremity normal to inspection and no calf tenderness Skin no rashes or lesions noted Neuro oriented x3 and CN's II-XII intact bilaterally Psych mental status grossly normal Assessment & Plan Assessment/Plan (1) Vaginal delivery: PLAN: Plan PPD# 1 , Doing well Routine care pain mgmt ambulation dc home
--- NOTE | 2022-03-08 08:22 | DCINST_ITS ---
Discharge Instructions Procedure Vaginal Delivery Diet Discharge Diet: No restrictions Activity May resume sexual activity in: 6-8 weeks Dressing / Incision Call your doctor if you observe: Fever of 101 or Higher, Inability to urinate, Using more than 1 pad per hour and Uncontrolled pain Follow Up Care Please Follow Up With: Quynh Esteban MD When: 1-2 weeks post and again at 6 weeks post . [phone] Test Results: Test results from this visit will be discussed in further detail at your follow- up appointment, if applicable. Discharge Plan Admission Admit Date/Time: 03/07/22 06:42 Attending Provider: Alisha Mayberry Primary Care Provider: Care Physician,Denise Primary Discharge Orders/Prescriptions Prescriptions: New acetaminophen 500 mg Tablet 1,000 mg PO Q6H PRN PRN (Reason: Pain 1-10 Or Fever) Qty: 0 0RF naproxen 500 mg Tablet 500 mg PO Q8H PRN PRN (Reason: Pain Score 1-3) Qty: 0 0RF Continued magnesium 500 mg Tablet 15 mg PO DAILY Discontinued aspirin [Aspir-81] 81 mg Tablet,Delayed Release (Dr/Ec) 81 mg PO DAILY Referrals / Follow Up: Care Physician,No Primary [Primary Care Provider] - Disposition Disposition (needs filled in before D/C Order can be placed): Home, Self Care
[2022-03-08 09:40] VITALS: BP 92/52; PULSE 64; RESP 16; TEMP 36.5
[2022-03-08 12:40] VITALS: BP 109/54; PULSE 61; RESP 16; TEMP 36.2
[2022-03-08 20:15] VITALS: BP 103/62; PULSE 78; RESP 16; TEMP 36.4; O2SAT 98
== END 2022-03-08 20:50 | disposition home or self-care (01) | DRG 807 ==
PROVIDERS: Admitting Provider Advanced Practice Midwife; Visit Provider Advanced Practice Midwife
DX: O70.1 Second degree perineal laceration during delivery (principal); Z37.0 Single live birth; O26.23 Pregnancy care for patient with recurrent pregnancy loss, third trimester; Q82.5 Congenital non-neoplastic nevus; Z79.82 Long term (current) use of aspirin; Z3A.39 39 weeks gestation of pregnancy; Z87.59 Personal history of other complications of pregnancy, childbirth and the puerperium; O99.893 Other specified diseases and conditions complicating puerperium
CPT/HCPCS: 59025; 59050; 85025; 86850; 86900; 86901; 87426; 99218; J7120; G0378

== ENCOUNTER → 2023-01-18 | Outpatient (CLI) | payer OTHER, SELFPAY ==
[2023-01-18 22:49] LABS: Absolute Lymphocyte Count 1.84 X10^3/uL (0.83-4.51); Absolute Neutrophil Count 2.9 X10^3/uL (2.0-7.7); Basophil# 0.03 X10^3/uL; Basophil% 0.6 % (0-1); Eosinophil# 0.14 X10^3/uL; Eosinophils% 2.7 % (0-5); Hematocrit 39.8 % (37-47); Hemoglobin 12.7 g/dL (12.0-15.0); Lymphocyte # 1.84 X10^3/ul (0.83-4.51); Lymphocyte % 35.4 % (19-41); Mean Corp Hgb Conc 31.9 g/dL (32-36); Mean Corpuscular Hgb 30.3 pg (27.0-32.0); Mean Platelet Vol. 11.4 fl (6.2-12.0); Monocyte# 0.32 X10^3/uL; Monocyte% 6.2 % (0-10); NRBC Flagged by Analyzer 0 % (0-5); Neutrophil # 2.87 X10^3/uL (2.7-7.7); Neutrophil % 55.1 % (47-70); Platelet Count 229 K/mm3 (150-450); RBC Distribution Width CV 12.5 % (11.6-14.6); RBC Distribution Width SD 43.3 fl (35.1-43.9); Red Blood Count 4.19 M/mm3 (4.2-5.4); White Blood Count 5.2 K/mm3 (4.4-11.0)
[2023-01-18 23:06] LABS: Vitamin B12 536 pg/mL (211-911)
[2023-01-18 23:13] LABS: ALB/GLOB Ratio 1.1 RATIO (0.9-2.4); AST(SGOT) 13 U/L (15-37); Alanine Aminotransfer ALT/SGPT 21 U/L (13-56); Albumin, Serum 3.8 g/dL (3.2-5.0); Alkaline Phosphatase 83 U/L (45-117); Anion Gap 3 (5-15); BUN 14 mg/dL (7-18); BUN/Creat Ratio 19.1 RATIO (10-20); Calcium,Total 8.8 mg/dL (8.5-10.1); Chloride 109 mmol/L (98-107); Cholesterol 182 mg/dL (200); Creatinine, Serum 0.73 mg/dL (0.55-1.02); EST Glomerular Filtration Rate 93 mL/min (>60); Est Glom Filt Rate - Afr Amer 112 mL/min (>60); Globulin 3.6 g/dL (2.2-4.2); Glucose 73 mg/dL (74-106); High Density Lipoprotein 66 mg/dL; Iron 110 ug/dL (50-170); Iron Binding Capacity,Total 331 ug/dL (250-450); PERCENT IRON SATURATION 33.2 % (15.0-55.0); Potassium 4.3 mmol/L (3.5-5.1); Protein, Total 7.4 g/dL (6.4-8.2); Sodium Level 140 mmol/L (136-145); Thyroid Stim Hormone (TSH) 0.81 uIU/mL (0.358-3.74); Triglycerides 52 mg/dL; Very Low Density Lipoprotein 10 mg/dL (5-40)
[2023-01-23 12:08] LABS: Vitamin D 1,25-Dihydroxy 52.9 pg/mL (24.8-81.5)
== END | disposition home or self-care (01) ==
PROVIDERS: PCP Nurse Practitioner; Visit Provider Nurse Practitioner
DX: Z00.00 Encounter for general adult medical examination without abnormal findings (principal); D50.9 Iron deficiency anemia, unspecified
CPT/HCPCS: 80053; 80061; 82607; 82652; 83540; 83550; 84443; 85025

== ENCOUNTER → 2024-02-04 | Outpatient (CLI) | payer OTHER, SELFPAY ==
[2024-02-04 21:55] LABS: Absolute Lymphocyte Count 1.84 X10^3/uL (0.83-4.51); Absolute Neutrophil Count 3.6 X10^3/uL (2.0-7.7); Basophil# 0.04 X10^3/uL; Basophil% 0.7 % (0-1); Eosinophil# 0.14 X10^3/uL; Eosinophils% 2.3 % (0-5); Hematocrit 36.8 % (37-47); Hemoglobin 11.8 g/dL (12.0-15.0); Lymphocyte # 1.84 X10^3/ul (0.83-4.51); Lymphocyte % 30.3 % (19-41); Mean Corp Hgb Conc 32.1 g/dL (32-36); Mean Corpuscular Hgb 30.3 pg (27.0-32.0); Mean Corpuscular Volume 94.4 fL (81-99); Mean Platelet Vol. 11.3 fl (6.2-12.0); Monocyte# 0.42 X10^3/uL; Monocyte% 6.9 % (0-10); NRBC Flagged by Analyzer 0 % (0-5); Neutrophil # 3.63 X10^3/uL (2.7-7.7); Neutrophil % 59.6 % (47-70); Platelet Count 206 K/mm3 (150-450); RBC Distribution Width CV 12.3 % (11.6-14.6); RBC Distribution Width SD 42.6 fl (35.1-43.9); White Blood Count 6.1 K/mm3 (4.4-11.0)
[2024-02-04 22:09] LABS: ALB/GLOB Ratio 1.1 RATIO (0.9-2.4); AST(SGOT) 18 U/L (15-37); Alanine Aminotransfer ALT/SGPT 18 U/L (13-56); Albumin, Serum 3.6 g/dL (3.2-5.0); Alkaline Phosphatase 44 U/L (45-117); Anion Gap 3 (5-15); BUN 11 mg/dL (7-18); BUN/Creat Ratio 16.2 RATIO (10-20); Calcium,Total 9.2 mg/dL (8.5-10.1); Chloride 108 mmol/L (98-107); Cholesterol 169 mg/dL (200); Creatinine, Serum 0.68 mg/dL (0.55-1.02); EST Glomerular Filtration Rate 100 mL/min (>60); Est Glom Filt Rate - Afr Amer 122 mL/min (>60); Globulin 3.2 g/dL (2.2-4.2); Glucose 90 mg/dL (74-106); High Density Lipoprotein 72 mg/dL; Potassium 4.3 mmol/L (3.5-5.1); Protein, Total 6.8 g/dL (6.4-8.2); Sodium Level 140 mmol/L (136-145); Triglycerides 65 mg/dL; Very Low Density Lipoprotein 13 mg/dL (5-40)
== END | disposition home or self-care (01) ==
PROVIDERS: PCP Nurse Practitioner; Referring Provider Nurse Practitioner; Visit Provider Nurse Practitioner
DX: Z00.00 Encounter for general adult medical examination without abnormal findings (principal)
CPT/HCPCS: 80053; 80061; 85025

== ENCOUNTER → 2024-12-24 | Outpatient (CLI) | payer OTHER, SELFPAY ==
--- OUTSIDE RECORDS SUMMARY | 2024-12-24 21:28 | XMS RPT_ITS | CCD ---
Author Organization [facility] Care Team Providers Care Extension Worker Name Role Phone Unavailable Primary Care Provider Filemon Garcia DIRECTOR [employer], Clemencia Referring Unavailable Jose DIRECTOR [employer], Clemencia Attending Unavailable Jose DIRECTOR [employer], Clemencia Primary Care Unavailable Unavailable Primary Care Provider UnavailLANNY Rivero Referring Unavailable DAVON STAFFORD Attending Unavailable LANNY PERDOMO Attending Unavailable LANNY PERDOMO Referring Unavailable VALERIANO BARRON Attending Unavailable LANNY PERDOMO Referring Unavailable Medications Current Medications Medication Drug Class(es) Dates Sig (Normalized) Sig (Original) acetaminophen 500 mg oral tablet (2 sources) Start: 03-08-2022 take 1000 mg by mouth every six hours as needed Acetaminophen Active 1000 MG PO EVERY 6 HOURS NEEDED 0 March 08, 2022 12:00am Magnesium (17 sources) Start: 03-07-2022 take 15 mg by mouth once daily Magnesium Active 15 MG PO DAILY March 07, 2022 12:00am Magnesium 250 mg tab Take 250 mg by mouth. Active Magnesium 250 mg tab Take 250 mg by mouth. 0 Active Comment on above: Take 250 mg by mouth . naproxen 500 mg oral tablet (2 sources) Nonsteroidal Anti-inflammatory Drug Start: 03-08-2022 take 500 mg by mouth every eight hours as needed Naproxen Active 500 MG PO EVERY 8 HOURS NEEDED 0 March 08, 2022 12:00am [place] (Nk) (1 source) Start: 01-17-2022 [place] (Nk) Active January 17, 2022 12:00am PNV NO.122/IRON/FOLIC ACID ( MULTI ORAL) (15 sources) PNV NO.122/IRON/FOLIC ACID ( MULTI ORAL) Take by mouth. Active PNV NO.122/IRON/ FOLIC ACID ( MULTI ORAL) Take by mouth. 0 Active Comment on above: Take by mouth. Completed/Discontinued Medications Medication Drug Class(es) Dates Sig (Normalized) Sig (Original) aspirin 81 mg delayed release oral tablet (20 sources) Platelet Aggregation Inhibitor, Nonsteroidal Anti-inflammatory Drug Start: 03-07-2022 End: 03-08-2022 take 1 tablet by mouth once daily Aspirin (Aspir-81) 81 mg Tablet,Delayed Release (Dr/Ec) Discontinued 81 MG PO DAILY March 07, 2022 12:00am March 08, 2022 8:22am Start: 02-11-2020 End: 02-12-2020 take 81 mg by mouth at bedtime Aspirin Discontinued 81 MG PO AT BEDTIME February 11, 2020 12:00am February 12, 2020 8:37am take 1 capsule by mo [facility] once daily aspirin 81 mg cap Take 81 mg by mouth once daily. Active Comment on above: Take 81 mg by mouth once daily. ferrous sulfate 325 mg oral tablet (3 sources) Start: 8 End: 8 take 1 tablet by mouth once daily Ferrous Sulfate (Iron) 325 MG tablet Discontinued 1 TABLET PO DAILY May 10, 2018 1:00am May 11, 2018 3:13pm ibuprofen 600 mg oral tablet (3 sources) Nonsteroidal Anti-inflammatory Drug Start: 8 End: 9 take 600 mg by mouth every six hours as needed Ibuprofen Discontinued 600 MG PO EVERY 6 HOURS NEEDED May 11, 2018 1:00am June 08, 2018 1:07am magnesium oxide 500 mg oral capsule (3 sources) Start: 8 End: 8 take 1 tablet by mouth once daily Magnesium Oxide Discontinued 1 TABLET PO DAILY May 10, 2018 1:00am May 11, 2018 3:12pm vitamin b6 50 mg oral tablet (3 sources) Start: 2 End: 2 take 1 tablet by mouth twice daily pyridoxine, vitamin B6, (VITAMIN B-6) 50 mg tablet Take 1 tablet by mouth twice daily. 0 08/12/2021 10/06/2021 Discontinued Comment on above: Take 1 tablet by sung twice daily. Problems Active Problems Problem Classification Problem Date Documented Date Episodic/Chronic Allergic reactions (1 source) Unspecified contact dermatitis due to plants, except food; Translations: [Contact dermatitis due to plants, except food, unspecified contact dermatitis type] Onset: 10-08-2024 Episodic Coagulation and hemorrhagic disorders (3 sources) Disorder of hemostatic system; Translations: [Coagulation defect, unspecified] 04-18-2021 Chronic Deficiency and other anemia (1 source) Anemia; Translations: [Anemia, unspecified] 01-19-2023 Episodic Deficiency and other anemia (1 source) Iron deficiency anemia; Translations: [Iron deficiency anemia, unspecified] 01-18-2023 Episodic Fetopelvic disproportion; obstruction (3 sources) Shoulder dystocia - delivered; Translations: [Obstructed labor due to shoulder dystocia] 02-11-2020 Episodic Genitourinary symptoms and ill-defined conditions (1 source) Urinary incontinence; Translations: [Unspecified urinary incontinence] Chronic Headache; including migraine (15 sources) Migraine; Translations: [Migraine, unspecified, not intractable, without status migrainosus] Onset: 07-18-2013 07-18-2013 Chronic Immunizations and screening for infectious disease (1 source) Encounter for screening for infections with a predominantly sexual mode of transmission; Translations: [Screen for STD (sexually transmitted disease)] Onset: 11-20-2024 Episodic OB-related trauma to perineum and vulva (6 sources) First degree perineal tear during delivery - delivered; Translations: [First degree perineal laceration during delivery] Episodic Other complications of ; puerperium affecting management of mother (4 sources) Advanced maternal age ; Translations: [Advanced maternal age during ] Episodic Other complications of (20 sources) Multigravida of advanced maternal age; Translations: [Supervision of elderly multigravida, unspecified trimester] Onset: 05-19-2015 Episodic Other complications of (9 sources) High risk ; Translations: [Supervision of high risk , unspecified, third trimester] Onset: 11-20-2024 Episodic Other complications of (2 sources) Varicose veins of lower extremity in , unspecified trimester; Translations: [Varicose veins of both lower extremities during ] Episodic Other complications of (1 source) Supervision of with other poor reproductive or obstetric history, third trimester; Translations: [ with other poor obstetric history] Episodic Other complications of (1 source) Elderly primigravida; Translations: [Supervision of elderly primigravida, third trimester] Episodic Other complications of (5 sources) Vomiting of , unspecified; Translations: [Unspecified vomiting of , unspecified as to episode of care or not applicable] Onset: 11-20-2024 11-20-2024 Episodic Other complications of (1 source) Supervision of high risk , unspecified, first trimester; Translations: [Encounter for supervision of high risk in first trimester, antepartum (HCC)] Onset: 11-20-2024 Episodic Other complications of (1 source) Supervision of elderly multigravida, first trimester; Translations: [Multigravida of advanced maternal age in first trimester (HCC)] Onset: 11-20-2024 Episodic Other complications of (1 source) Supervision of high risk , unspecified, second trimester; Translations: [Supervision of high risk in second trimester ([facility])] Onset: 12-16-2024 Episodic Other complications of (1 source) Supervision of elderly multigravida, second trimester; Translations: [AMA (advanced maternal age) multigravida 35+, second trimester ([facility])] Onset: 12-16-2024 Episodic Other congenital anomalies (18 sources) [place] stain of skin; Translations: [Congenital non-neoplastic nevus] Onset: 05-07-2013 05-16-2021 Chronic Other and delivery including normal (20 sources) Vaginal delivery; Translations: [Encounter for full-term uncomplicated delivery] Onset: 02-06-2006 Resolved: 10-03-2017 Episodic Other screening for suspected conditions (not mental disorders or infectious disease) (7 sources) Patient encounter status; Translations: [Encounter for other specified screening] Episodic Residual codes; unclassified (3 sources) Gestation period, 12 weeks; Translations: [12 weeks gestation of ] Episodic Residual codes; unclassified (1 source) Gestation period, 17 weeks; Translations: [17 weeks gestation of ] Episodic Residual codes; unclassified (1 source) Gestation period, 18 weeks; Translations: [18 weeks gestation of ] Episodic Residual codes; unclassified (1 source) Gestation period, 26 weeks; Translations: [26 weeks gestation of ] Episodic Residual codes; unclassified (1 source) Gestation period, 30 weeks; Translations: [30 weeks gestation of ] Episodic Residual codes; unclassified (2 sources) Gestation period, 35 weeks; Translations: [35 weeks gestation of ] Episodic Residual codes; unclassified (1 source) Gestation period, 36 weeks; Translations: [36 weeks gestation of ] Episodic Residual codes; unclassified (1 source) Gestation period, 38 weeks; Translations: [38 weeks gestation of ] Episodic Residual codes; unclassified (2 sources) Gestation period, 39 weeks; Translations: [39 weeks gestation of ] 03-16-2022 Episodic Residual codes; unclassified (1 source) 39 weeks gestation of ; Translations: [ state, incidental] Episodic Residual codes; unclassified (2 sources) Personal history of other complications of , childbirth and the puerperium; Translations: [Personal history of other genital system and obstetric disorders] Onset: 12-16-2024 Episodic Residual codes; unclassified (2 sources) Gestation period, 15 weeks; Translations: [15 weeks gestation of ] 12-16-2024 Episodic Residual codes; unclassified (1 source) 12 weeks gestation of ; Translations: [12 weeks gestation of (HCC)] Onset: 12-16-2024 Episodic Residual codes; unclassified (1 source) 15 weeks gestation of ; Translations: [15 weeks gestation of (HCC)] Onset: 12-16-2024 Episodic Spontaneous (3 sources) Miscarriage; Translations: [Complete or unspecified spontaneous without complication] 04-18-2021 Episodic Unclassified (3 sources) [facility] Education - COMMON Onset: 11-20-2024 11-20-2024 Unclassified (3 sources) Education - [place] Onset: 11-20-2024 11-20-2024 Past or Other Problems Problem Classification Problem Date Documented Date Episodic/Chronic Abdominal pain (3 sources) Abdominal pain; Translations: [Unspecified abdominal pain] Onset: 07-26-2011 Resolved: 05-07-2013 05-07-2013 Episodic Administrative/social admission (15 sources) Grand multipara; Translations: [Problems related to multiparity] Onset: 08-11-2021 08-11-2021 Episodic Calculus of urinary tract (3 sources) Kidney stone; Translations: [Calculus of kidney] Onset: 05-07-2013 Resolved: 08-12-2021 08-12-2021 Episodic Other complications of (3 sources) Anemia of ; Translations: [Anemia complicating , third trimester] Onset: 12-12-2019 Resolved: 08-12-2021 08-12-2021 Chronic Other complications of (15 sources) Complication of , childbirth and/or the puerperium; Translations: [Diseases of the digestive system complicating , unspecified trimester] Onset: 05-07-2013 05-19-2015 Episodic Other complications of (15 sources) History of delivery of macrosomal infant; Translations: [Supervision of with other poor reproductive or obstetric history, unspecified trimester] Onset: 08-11-2021 08-12-2021 Episodic Prolonged (3 sources) Gestation period, 41 weeks; Translations: [Post-term ] Onset: 12-12-2015 Resolved: 10-03-2017 10-03-2017 Episodic Residual codes; unclassified (18 sources) History of past delivery; Translations: [Personal history of other complications of , childbirth and the puerperium] Onset: 05-19-2015 10-03-2017 Episodic Residual codes; unclassified (19 sources) History of shoulder dystocia; Translations: [Personal history of other complications of , childbirth and the puerperium] Onset: 08-05-2021 08-05-2021 Episodic Residual codes; unclassified (6 sources) H/O: miscarriage; Translations: [Personal history of other complications of , childbirth and the puerperium] Onset: 10-09-2017 Resolved: 07-04-2019 02-11-2020 Episodic Unclassified (3 sources) cyst i each breast after the last 2 pregnanacies 12-19-2021 Unclassified (3 sources) lazor surgery on the R arm for her port wine 12-19-2021 Unclassified (3 sources) History of shoulder dystocia; Translations: [History of shoulder dystocia] Unclassified (3 sources) disorder; Translations: [ anomaly] Onset: 07-11-2013 Resolved: 05-19-2015 05-16-2021 Results Test Name Value Interpretation Reference Range Facil ity Examination level ultrasound on 12-16-2024 Indication Early anatomic survey Advanced maternal age Impression The patient is referred for an early anatomic survey because of identified risk factors. - Single, live, intrauterine . - biometry is consistent with the established gestational age. - No malformations were visualized on an early anatomic assessment, although some anatomical structures were suboptimally seen as detailed below. - The amniotic fluid volume is normal amount. - The placenta is anterior. - Not all structural malformations can be detected by ultrasound examination. Recommendations Return around 20 weeks for detailed anatomic survey Maternal Assessment Height 163 cm Height (ft) 5 ft Height (in) 4 in Physical Exam Initial weight (lb) 162 lb Initial BMI 27.79 kg/m Maternal assessment other: 11 Para 8 REMOTE READ Method Transabdominal ultrasound examination. View: Suboptimal view: limited by early gestational age Ruiz . Number of fetuses: 1 Dating LMP on: 08/28/2024 GA by LMP 15 w + 5 d FLAKO by LMP: 06/04/2025 GA by prior assessment 15 w + 5 d FLAKO by prior assessment: 06/04/2025 Ultrasound examination on: 12/16/2024 GA by U/S based upon: AC, BPD, Femur, HC GA by U/S 16 w + 1 d FLAKO by U/S: 06/01/2025 Assigned: based on stated FLAKO, selected on 12/16/2024 Assigned GA 15 w + 5 d Assigned FLAKO: 06/04/2025 General Evaluation Cardiac activity present. FHR 158 bpm. movements: present. Presentation: transverse head left Placenta: Placental site: anterior Umbilical cord: Cord vessels: 3 vessel cord Amniotic fluid: Amount of AF: normal amount. MVP 3.8 cm Biometry Standard BPD 33.1 mm 16w 2d 73% Hadlock OFD 43.2 mm 15w 2d 52% Nicolaides HC 122.8 mm 15w 5d 51% Jeremy Cerebellum tr 15.6 mm 16w 1d 46% Hill AC 114.0 mm 17w 1d 92% Hadlock Femur 18.8 mm 15w 4d 46% Jeremy Humerus 19.9 mm 15w 6d 62% Jeremy EFW 153 g 16w 1d 80% Hadlock EFW (lb) 0 lb EFW (oz) 5 oz EFW by: Hadlock (HC-AC-FL) Extended Forensic Nurse 5.9 mm CM 3.7 mm 44% Nicolaides Extremities / Bony Struc FL / HC 0.15 12% Hadlock Other Structures FHR 158 bpm Anatomy Cranium: normal Lateral ventricles: normal Choroid plexus: normal Midline falx: normal Cerebellum: normal Cisterna magna: normal Lips: suboptimally visualized Nose: normal Face Lens: normal 4-chamber view: normal RVOT view: suboptimally visualized LVOT view: normal 3-vessel view: normal [id number] view: normal Heart / Thorax Diaphragm: normal Cord insertion: normal Stomach: normal Kidneys: normal Bladder: normal Cervical spine: normal Thoracic spine: normal Lumbar spine: normal Sacral spine: normal Arms: normal Legs: normal Rt upper arm: normal Rt forearm: normal Rt hand: normal Lt upper arm: normal Lt forearm: normal Lt hand: normal Rt upper leg: normal Rt lower leg: normal Rt foot: normal Lt upper leg: normal Lt lower leg: normal Lt foot: normal sex: female Wants to know sex: yes Maternal Structures Uterus / Cervix Uterus: Visualized Cervix: Visualized Approach: Transabdominal Cervical length 36.6 mm Ovaries / Tubes / Adnexa Rt ovary: Visualized Lt ovary: Visualized Performed By: Rozina Harris RDMS, RVT Read By: Reena Guy M.D. MATERNAL MEDICINE [facility] Radiology Study observation (narrative) [facility] Bacteria Ur Culton Bacteria identified Cx Nom (U) ORGANISM ID: 1 <10,000 CFU/ml Mixed microbiota No further workup. Mixed microbiota can be due to???urine???contamin ation with skin bacteria at time of collection or presence of a long-term urinary catheter. If a new culture is needed, please consider re-education of the patient on proper midstream co llection technique or straight catheterization for???urine???collect ion. Normal [facility] Comment on above: Performed By: #### 5 7021-8 #### [facility] CLIA [id number] [address] [place] [address] [place] C. trachomatis+N. gonorrhoea e DNA RADHA+probe Ql (Unsp spec)on 11-20-2024 C. trachomatis rRNA RADHA+probe Ql (Unsp spec) Not detected Normal Not detected [facility] Comment on above: Order Comment: Speci men Type: BLOOD SPECIMEN Ordering Facility: [facility] Address: [address] [place] [address] Performed By: #### 5 7021-8 #### [facility] CLIA [id number] [address] [place] [address] [place] [facility] N. gonorrhoeae rRNA RADHA+probe Ql (Unsp spec) Not detected Normal Not detected [facility] Comment on above: Order Comment: Speci men Type: BLOOD SPECIMEN Ordering Facility: [facility] Address: [address] [place] [address] Performed By: #### 5 7021-8 #### [facility] CLIA [id number] [address] [place] [address] [place] CBC W Auto Differential pane l (Bld)on 11-20-2024 Basophils (Bld) [#/Vol] 0.03 10*3/uL Normal <0.[address] [facility] Comment on above: Order Comment: Speci men Type: BLOOD SPECIMEN Ordering Facility: [facility] Address: [address] [place] [address] Performed By: #### 5 7021-8 #### [facility] CLIA [id number] [address] [place] [address] [place] Basophils/100 WBC (Bld) 0.5 % Normal [facility] Comment on above: Order Comment: Speci men Type: BLOOD SPECIMEN Ordering Facility: [facility] Address: [address] [place] [address] Performed By: #### 5 7021-8 #### [facility] CLIA [id number] [address] [place] [address] [place] Differential cell count method Nom (Bld) Auto Normal [facility] Comment on above: Order Comment: Speci men Type: BLOOD SPECIMEN Ordering Facility: [facility] Address: [address] [place] [address] Performed By: #### 5 7021-8 #### [facility] CLIA [id number] [address] [place] [address] [place] Eosinophils (Bld) [#/Vol] 0.10 10*3/uL Normal <0.[address] [facility] Comment on above: Order Comment: Speci men Type: BLOOD SPECIMEN Ordering Facility: [facility] Address: [address] [place] [address] Performed By: #### 5 7021-8 #### [facility] CLIA [id number] [address] [place] [address] [place] Eosinophils/100 WBC (Bld) 1.6 % Normal [facility] Comment on above: Order Comment: Speci men Type: BLOOD SPECIMEN Ordering Facility: [facility] Address: [address] [place] [address] Performed By: #### 5 7021-8 #### [facility] CLIA [id number] [address] [place] [address] [place] Erythrocyte distribution width (RBC) [Ratio] 12.7 % Normal 11.5-15.[address] [facility] Comment on above: Order Comment: Speci men Type: BLOOD SPECIMEN Ordering Facility: [facility] Address: [address] [place] [address] Performed By: #### 5 7021-8 #### [facility] CLIA [id number] [address] [place] [address] [place] Hematocrit (Bld) [Volume fraction] 35.0 % Low 36.0-46.[address] [facility] Comment on above: Order Comment: Speci men Type: BLOOD SPECIMEN Ordering Facility: [facility] Address: [address] [place] [address] Performed By: #### 5 7021-8 #### [id number] [address] [place] [address] [place] Hemoglobin (Bld) [Mass/Vol] 11.7 g/dL Normal 11.5-15.[address] [facility] Comment on above: Order Comment: Speci men Type: BLOOD SPECIMEN Ordering Facility: [facility] Address: [address] [place] [address] Performed By: #### 5 7021-8 #### [facility] CLIA [id number] [address] [place] [address] [place] Immature granulocytes (Bld) [#/Vol] 10*3/uL Normal <0.[address] [facility] Comment on above: Order Comment: Speci men Type: BLOOD SPECIMEN Ordering Facility: [facility] Address: [address] [place], [place] [id number] Performed By: #### 5 7021-8 #### [facility] CLIA [id number] [address] [place] [address] [place] Immature granulocytes/100 WBC (Bld) 0.2 % Normal [facility] Comment on above: Order Comment: Speci men Type: BLOOD SPECIMEN Ordering Facility: [facility] Address: [address] [place] [address] Performed By: #### 5 7021-8 #### [facility] CLIA [id number] [address] [place] [address] [place] Lymphocytes (Bld) [#/Vol] 1.51 10*3/uL Normal 1.00-4.[address] [facility] Comment on above: Order Comment: Speci men Type: BLOOD SPECIMEN Ordering Facility: [facility] Address: [address] [place] [address] Performed By: #### 5 7021-8 #### [facility] CLIA [id number] [address] [place] [address] [place] Lymphocytes/100 WBC (Bld) 24.8 % Normal [facility] Comment on above: Order Comment: Speci men Type: BLOOD SPECIMEN Ordering Facility: [facility] Address: [address] [place] [address] Performed By: #### 5 7021-8 #### [facility] CLIA [id number] [address] [place] [address] [place] MCH (RBC) [Entitic mass] 30.2 pg Normal 26.0-34.[address] [facility] Comment on above: Order Comment: Speci men Type: BLOOD SPECIMEN Ordering Facility: [facility] Address: [address] [place], [place] [id number] Performed By: #### 5 7021-8 #### [facility] CLIA [id number] [address] [place] [address] [place] MCHC (RBC) [Mass/Vol] 33.4 g/dL Normal 30.5-36.0 [facility] Comment on above: Order Comment: Speci men Type: BLOOD SPECIMEN Ordering Facility: [facility] Address: [address] [place] [address] Performed By: #### 5 7021-8 #### [facility] CLIA [id number] [address] [place] [address] [place] MCV (RBC) [Entitic vol] 90.4 fL Normal 80.0-100.[address] [facility] Comment on above: Order Comment: Speci men Type: BLOOD SPECIMEN Ordering Facility: [facility] Address: [address] [place] [address] Performed By: #### 5 7021-8 #### [facility] CLIA [id number] [address] [place] [address] [place] Monocytes (Bld) [#/Vol] 0.42 10*3/uL Normal <0.[address] [facility] Comment on above: Order Comment: Speci men Type: BLOOD SPECIMEN Ordering Facility: [facility] Address: [address] [place] [address] Performed By: #### 5 7021-8 #### [facility] CLIA [id number] [address] [place] [address] [place] Monocytes/100 WBC (Bld) 6.9 % Normal [facility] Comment on above: Order Comment: Speci men Type: BLOOD SPECIMEN Ordering Facility: [facility] Address: [address] [place] [address] Performed By: #### 5 7021-8 #### [facility] CLIA [id number] [address] [place] [address] [place] Neutrophils (Bld) [#/Vol] 4.01 10*3/uL Normal 1.45-7.[address] [facility] Comment on above: Order Comment: Speci men Type: BLOOD SPECIMEN Ordering Facility: [facility] Address: [address] [place] [address] Performed By: #### 5 7021-8 #### [facility] CLIA [id number] [address] [place] [address] [place] Neutrophils/100 WBC (Bld) 66.0 % Normal [facility] Comment on above: Order Comment: Speci men Type: BLOOD SPECIMEN Ordering Facility: [facility] Address: [address] [place] [address] Performed By: #### 5 7021-8 #### [facility] CLIA [id number] [address] [place] [address] [place] Nucleated RBC (Bld) [#/Vol] 10*3/uL Normal <0.[address] [facility] Comment on above: Order Comment: Speci men Type: BLOOD SPECIMEN Ordering Facility: [facility] Address: [address] [place] [address] Performed By: #### 5 7021-8 #### [facility] CLIA [id number] [address] [place] [address] [place] Nucleated RBC/100 WBC (Bld) [Ratio] 0.0 /100 WBC Normal [facility] Comment on above: Order Comment: Speci men Type: BLOOD SPECIMEN Ordering Facility: [facility] Address: [address] [place] [address] Performed By: #### 5 7021-8 #### [facility] CLIA [id number] [address] [place] [address] [place] Platelet mean volume (Bld) [Entitic vol] 10.8 fL Normal 9.0-12.[address] [facility] Comment on above: Order Comment: Speci men Type: BLOOD SPECIMEN Ordering Facility: [facility] Address: [address] [place] [address] Performed By: #### 5 7021-8 #### [facility] CLIA [id number] [address] [place] [address] [place] Platelets (Bld) [#/Vol] 196 10*3/uL Normal 150-[address] [facility] Comment on above: Order Comment: Speci men Type: BLOOD SPECIMEN Ordering Facility: [facility] Address: [address] [place] [address] Performed By: #### 5 7021-8 #### [facility] CLIA [id number] [address] [place] [address] [place] RBC (Bld) [#/Vol] 3.87 10*6/uL Low 3.90-5.20 [facility] Comment on above: Order Comment: Speci men Type: BLOOD SPECIMEN Ordering Facility: [facility] Address: [address] [place] [address] Performed By: #### 5 7021-8 #### [facility] CLIA [id number] [address] [place] [address] [place] WBC (Bld) [#/Vol] 6.08 10*3/uL Normal 3.70-11.00 [facility] Comment on above: Order Comment: Speci men Type: BLOOD SPECIMEN Ordering Facility: [facility] Address: [address] [place] [address] Performed By: #### 5 7021-8 #### [facility] CLIA [id number] [address] [place] [address] [place] HBV surface Ag Ser Qlon 07-0 HBV surface Ag Ql (S) Negative Normal Negative [facility] Comment on above: Order Comment: Speci men Type: BLOOD SPECIMEN Ordering Facility: [facility] Address: [address] [place] [address] Performed By: #### 5 195-3, 84646-6, 98327-9 #### [facility] CLIA [id number] [address] [place] [address] [place] HCV Ab Ser Qlon 11-20-2024 HCV Ab Ql (S) Negative Normal Negative [facility] Comment on above: Order Comment: Speci men Type: BLOOD SPECIMEN Ordering Facility: [facility] Address: [address] [place] [address] Result Comment: The result suggests no evidence of infection with Hepatitis C virus. Should recent infection be suspected, repeat testing may be considered 4-6 weeks after this draw. Performed By: #### 1 6128-1 #### [facility] CLIA [id number] [address] [place] [address] [place] HIGH RISK HUMAN PAPILLOMA ERWIN (HPV), PCR FOR DETECTION AND GENOTYPINGon 11-20-2024 HPV 16 Ag Ql (Unsp spec) Not detected Normal Not detected [facility] Comment on above: Order Comment: Speci men Type: FLUID SPECIMEN Ordering Facility: [facility] Address: [address] [place] [address] Performed By: #### H PVHRT #### [facility] CLIA [id number] [address] [place] [address] [place] HPV 18 Ag Ql (Unsp spec) Not detected Normal Not detected [facility] Comment on above: Order Comment: Speci men Type: FLUID SPECIMEN Ordering Facility: [facility] Address: [address] [place] [address] Performed By: #### H PVHRT #### [facility] CLIA [id number] [address] [place] [address] [place] HPV 31+33+35+39+45+51+52+5 6+58+59+66+68 DNA RADHA+probe Ql (Cvx) Not detected Normal Not detected [facility] Comment on above: Order Comment: Speci men Type: FLUID SPECIMEN Ordering Facility: [facility] Address: [address] [place] [address] Result Comment: High Risk HPV Other Type includes HPV types 31, 33, 35, 39, 45, 51, 52, 56, 58, 59, 66 and 68. Performed By: #### H PVHRT #### [facility] CLIA [id number] [address] [place] [address] [place] HIV 1+2 Ab IA Qlon 5 HIV 1 and 2 Ab IA.rapid Nom (S/P/Bld) Normal [facility] Comment on above: Order Comment: Speci men Type: BLOOD SPECIMEN Ordering Facility: [facility] Address: [address] [place] [address] Result Comment: Test not indicated. Performed By: #### 5 195-3, 05659-0, 42833-7 #### [facility] CLIA [id number] [address] [place] [address] [place] HIV 1+2 Ab+HIV1 p24 Ag IA Ql Non-Reactive Normal Nonreactive [facility] Comment on above: Order Comment: Speci men Type: BLOOD SPECIMEN Ordering Facility: [facility] Address: [address] [place] [address] Performed By: #### 5 195-3, 08383-7, 52096-4 #### [facility] CLIA [id number] [address] [place] [address] [place] HIV immunoassay testing algorithm interpretation (S/P/Bld) [Interp] Normal [facility] Comment on above: Order Comment: Speci men Type: BLOOD SPECIMEN Ordering Facility: [facility] Address: [address] [place] [address] Result Comment: No e vidence of HIV-1 or HIV-2 infection. Should recent infection be suspected, repeat testing may be considered 2-3 weeks after this draw. [place] Rev. Code 3701.243(E): This information has been disclosed to you from confidential records protected from disclosure by state law. You shall make no further disclosure of this information without the specific, written, and informed release of the individual to whom it pertains or as otherwise permitted by state law. A general authorization for the release of medical or other information is not sufficient for the purpose of the release of HIV test results or diagnoses. Performed By: #### 5 195-3, 16053-6, 19881-5 #### [facility] CLIA [id number] [address] [place] [address] OF [facility] HbA1c (Bld)on 11-20-2024 Average glucose Estimated from glycated hemoglobin (Bld) [Mass/Vol] 103 mg/dL [facility] Comment on above: eAG: (Estimated aver age glucose) is a calculated value from HgbA1c and is food products sales representative of the average blood glucose level in the last 2-3 month period. HbA1c (Bld) [Mass fraction] 5.2 % 4.3 - 5.6 % [facility] Comment on above: [place] [employer] sociation guidelines indicate that patients with HgbA1c in the range 5.7-6.4% are at increased risk for development of diabetes, and intervention by lifestyle modification may be beneficial. HgbA1c greater or equal to 6.5% is considered diagnostic of diabetes. [facility] Average glucose Estimated from glycated hemoglobin (Bld) [Mass/Vol] 103 mg/dL Normal [facility] Comment on above: Order Comment: Speci men Type: BLOOD SPECIMEN Ordering Facility: [facility] Address: [address] [place] [address] Result Comment: eAG: (Estimated average glucose) is a calculated value from HgbA1c and is food products sales representative of the average blood glucose level in the last 2-3 month period. Performed By: #### 5 5454-3 #### [facility] CLIA [id number] [address] [place] [address] OF [facility] HbA1c (Bld) [Mass fraction] 5.2 % Normal 4.3-5.[address] [facility] Comment on above: Order Comment: Speci men Type: BLOOD SPECIMEN Ordering Facility: [facility] Address: [address] [place] [address] Result Comment: Andrew [place] Diabetes Association guidelines indicate that patients with HgbA1c in the range 5.7-6.4% are at increased risk for development of diabetes, and intervention by lifestyle modification may be beneficial. HgbA1c greater or equal to 6.5% is considered diagnostic of diabetes. Performed By: #### 5 5454-3 #### [facility] CLIA [id number] [address] [place] [address] OF [facility] [id number] PLUSon 11-20-2024 Cell-free DNA./Cell-free DNA.total Dosage of chromosome-specific cfDNA (cfDNA) [Molar fraction] 26% Normal [facility] Comment on above: Order Comment: Ezequiel ngo Type: BLOOD SPECIMEN Ordering Facility: [facility] Address: [address] [place] [address] Performed By: #### M AT21 #### [facility] CLIA [id number] [address] [place] [address] Chr 13+18+21+X+Y aneuploidy Dosage of chromosome-specific cfDNA Ql (cfDNA) Negative Normal [facility] Comment on above: Order Comment: Ezequiel ngo Type: BLOOD SPECIMEN Ordering Facility: [facility] Address: [address] [place] [address] Performed By: #### M AT21 #### [facility] CLIA [id number] [address] [place] [address] Chr 21 trisomy Dosage of chromosome-specific cfDNA Ql (cfDNA) Negative Normal [facility] Comment on above: Order Comment: Ezequiel ngo Type: BLOOD SPECIMEN Ordering Facility: [facility] Address: [address] [place] [address] Performed By: #### M AT21 #### [facility] CLIA [id number] [address] [place] [address] Chr X and Y aneuploidy risk Sequencing Ql (cfDNA) [Interp] Not detected Normal [facility] Comment on above: Order Comment: Speci men Type: BLOOD SPECIMEN Ordering Facility: [facility] Address: [address] [place] [address] Result Comment: Not Detected Not Detected Performed By: #### M AT21 #### [facility] CLIA [id number] [address] [place] [address] Citation Clyde (Reference lab test) Comment Normal [facility] Comment on above: Order Comment: Speci men Type: BLOOD SPECIMEN Ordering Facility: [facility] Address: [address] [place] [address] Result Comment: 1. P elizabeth VEGA, et al. Sarita Med. 2012;14(3):296-305. 2. Sanjuanita FRANCIS et al. Prenat Diag. 2013;33(6):591-597. 3. Justo C, et al. Clin Chem. 2015 Apr;61(4):608-616. 4. Alpesh VEGA et al. Sarita Med. 2011;13(11):913-920. 5. ACOG/SM[facility] Practice Bulletin No. 226, Feb 2020. Performed By: #### M AT21 #### [facility] CLIA [id number] [address] [place] [address] Gestational age Estimated from conception date Ruiz Normal [facility] Comment on above: Order Comment: Speci men Type: BLOOD SPECIMEN Ordering Facility: [facility] Address: [address] [place] [address] Performed By: #### M AT21 #### [facility] CLIA [id number] [address] [place] [address] GESTATIONALAGE AGE > OR = 9W Yes Normal [facility] Comment on above: Order Comment: Speci men Type: BLOOD SPECIMEN Ordering Facility: [facility] Address: [address] [place] [address] Performed By: #### M AT21 #### [facility] CLIA [id number] [address] [place] [address] Laboratory comment Clyde (Report) Comment Normal [facility] Comment on above: Order Comment: Ezequiel ngo Type: BLOOD SPECIMEN Ordering Facility: [facility] Address: [address] [place] [address] Result Comment: The MaterniT(R) 21 PLUS laboratory-developed test (LDT) analyzes circulating cell-free DNA from a maternal blood sample. This test is used for screening purposes and not diagnostic. Clinical correlation is recommended. Validation data on twin pregnancies is limited and the ability of this test to detect aneuploidy in higher multiple gestations has not yet been validated. Performed By: #### M AT21 #### [facility] CLIA [id number] [address] [place] [address] director voice name Nom (Provider) Comment Normal [facility] Comment on above: Order Comment: Ezequiel ngo Type: BLOOD SPECIMEN Ordering Facility: [facility] Address: [address] [place] [address] Result Comment: This specimen showed an expected representation of chromosome 21, 18 and 13 material. Clinical correlation is suggested. Comment Johnny Stanley MD, PhD, Director, [employer] Performed By: #### M AT21 #### [facility] CLIA [id number] [address] [place] [address] LIMITATIONS OF THE TEST Comment Normal [facility] Comment on above: Order Comment: Ezequiel ngo Type: BLOOD SPECIMEN Ordering Facility: [facility] Address: [address] [place] [address] Result Comment: Charbel robles the results of these tests are highly reliable, discordant results, including inaccurate sex prediction, may occur due to placental, maternal, or mosaicism or neoplasm; vanishing twin; prior maternal organ transplant; or other causes. These tests are screening tests and not diagnostic; they do not replace the accuracy and precision of diagnosis with CVS or amniocentesis. A patient with a positive test result should be referred for genetic counseling and offered invasive diagnosis for confirmation of test results.[5] The results of this testing, including the benefits and limitations, should be discussed with a qualified healthcare provider. management decisions, including termination of the , should not be based on the results of these tests alone. The healthcare provider is responsible for the use of this information in the management of their patient. Sex chromosomal aneuploidies are not reportable for known multiple gestations. A negative result does not ensure an unaffected nor does it exclude the possibility of other chromosomal abnormalities or defects which are not a part of these tests. An uninformative result may be reported, the causes of which may include, but are not limited to, insufficient sequencing coverage, noise or artifacts in the region, amplification or sequencing bias, or insufficient fraction. These tests are not intended to identify pregnancies at risk for neural tube defects or ventral wall defects. Testing for whole chromosome abnormalities (including sex chromosomes) and for subchromosomal abnormalities could lead to the potential discovery of both and maternal genomic abnormalities that could have major, minor, or no, clinical significance. Evaluating the significance of a positive or a non-reportable result may involve both invasive testing and additional studies on the mother. Such investigations may lead to a diagnosis of maternal chromosomal or subchromosomal abnormalities, which on occasion may be associated with benign or malignant maternal neoplasms. These tests may not accurately identify triploidy, balanced rearrangements, or the precise location of subchromosomal duplications or deletions; these may be detected by diagnosis with CVS or amniocentesis. The ability to report results may be impacted by maternal BMI, maternal weight, maternal systemic lupus erythematosus (SLE) and/or by certain pharmaceutical agents such as low molecular weight heparin (for example: Lovenox(R), Xaparin(R), Clexane(R) and Fragmin(R)). Performed By: #### M AT21 #### [facility] CLIA [id number] [address] [place] [address] Monosomy X risk Dosage of chromosome-specific cfDNA Ql (Plasma cell-free+WBC DNA) [Interp] Not detected Normal [facility] Comment on above: Order Comment: Ezequiel ngo Type: BLOOD SPECIMEN Ordering Facility: [facility] Address: [address] [place] [address] Performed By: #### M AT21 #### [facility] CLIA [id number] [address] [place] [address] NEGATIVE PREDICTIVE VALUE Note Normal [facility] Comment on above: Order Comment: Ezequiel ngo Type: BLOOD SPECIMEN Ordering Facility: [facility] Address: [address] [place] [address] Result Comment: The Negative Predictive Value (NPV) for trisomy 21, 18, and 13 is greater than 99%. The NPV for SCA and ESS cannot be calculated as SCA and ESS are only reported when an abnormality is detected. Performed By: #### M AT21 #### [facility] IA [id number] [address] [facility] [place] [place] [address] PERFORMANCE CHARACTERISTICS Note Normal [facility] Comment on above: Order Comment: Reesei huber Type: BLOOD SPECIMEN Ordering Facility: [facility] Address: [address] [place] [id number] Result Comment: ! Sex ! Accuracy: 99.4% ! ! ! ! Region (associated syndrome) ! Est. Sens# ! Est. Spec ! ! ! ! Trisomy 21 (Down Syndrome) ! 99.1% ! 99.9% ! ! ! ! Trisomy 18 (Crenshaw Syndrome) ! >99.9% ! 99.6% ! ! ! ! Trisomy 13 (Patau Syndrome) ! 91.7% ! 99.7% ! ! ! ! Sex Chromosome Aneuploidies## ! 96.2% ! 99.7% ! ! ! * As reported in [facility] database nstd37 [https://www.ncbi.nlm.nih.gov/dbvar/studies/nstd37/ ] # Estimated Sensitivity. Sensitivity estimated across the observed size distribution of each syndrome [per [facility] database nstd37] and across the range of fractions observed in routine clinical NIPT. Actual sensitivity can also be influenced by other factors such as the size of the event, total sequence counts, amplification bias, or sequence bias. ## Ruiz gestation only. Performed By: #### M AT21 #### [facility] CLIA [id number] [address] [place] [address] POSITIVE PREDICTIVE VALUE N/A Normal [facility] Comment on above: Order Comment: Ezequiel ngo Type: BLOOD SPECIMEN Ordering Facility: [facility] Address: [address] [place] [address] Performed By: #### M AT21 #### [facility] CLIA [id number] [address] [place] [address] Reference Lab Test Method Comment Normal [facility] Comment on above: Order Comment: Ezequiel ngo Type: BLOOD SPECIMEN Ordering Facility: [facility] Address: [address] [id number] Result Comment: Circ ulating cell-free DNA was purified from the plasma component of maternal blood. The extracted DNA was then converted into a genomic DNA library for aneuploidy analysis of chromosomes 21, 18, and 13 via next generation sequencing.[1] Optional findings based on the test order include sex chromosome aneuploidy (SCA)[2], and enhanced sequencing series (ESS)[3], which will only be reported on as an additional finding when an abnormality is detected. SCA testing includes information on X and Y representation, while ESS testing includes deletions in selected regions (22q, 15q, 11q, 8q, 5p, 4p, 1p) and trisomy of chromosomes 16 and 22. Performed By: #### M AT21 #### [facility] CLIA [id number] [address] [place] [address] Service comment (Unsp spec) [Interp] Comment Normal [facility] Comment on above: Order Comment: Speci men Type: BLOOD SPECIMEN Ordering Facility: [facility] Address: [address] [place] [address] Result Comment: [employer] is a subsidiary of [employer], using the brand [employer]. This test was developed and its performance characteristics determined by [employer]. It has not been cleared or approved by the Food and Drug Administration. This laboratory is certified under the Clinical Laboratory Improvement Amendments (CLIA) as qualified to perform high complexity clinical laboratory testing and accredited by the [employer] [place] [employer] (CAP). If there is future clinical need for adding MaterniT GENOME testing, this specimen will be available until term. [facility] samples will not be retained beyond 60 days. [facility] patients will have to send a new sample for re-sequencing ([facility] Test Code: [id number]). Performed By: #### M AT21 #### [facility] CLIA [id number] [address] [place] [address] Sex Dosage of chromosome-specific cfDNA Nom (cfDNA) Comment Normal [facility] Comment on above: Order Comment: Speci men Type: BLOOD SPECIMEN Ordering Facility: [facility] Address: [address] [place] [address] Result Comment: Cons istent with Female Performed By: #### M AT21 #### [facility] CLIA [id number] [address] [place] [address] Test performance information Clyde (Unsp spec) Comment Normal [facility] Comment on above: Order Comment: Speci men Type: BLOOD SPECIMEN Ordering Facility: [facility] Address: [address] [place] [address] Result Comment: The performance characteristics of the MaterniT(R) 21 PLUS laboratory-developed test (LDT) have been determined in a clinical validation study with women at increased risk for chromosomal aneuploidy.[1-4] Performed By: #### M AT21 #### [facility] CLIA [id number] [address] [place] [address] Trisomy 13 risk Dosage of chromosome-specific cfDNA Ql (cfDNA) [Interp] Negative Normal [facility] Comment on above: Order Comment: Ezequiel ngo Type: BLOOD SPECIMEN Ordering Facility: [facility] Address: [address] [place] [address] Performed By: #### M AT21 #### [facility] CLIA [id number] [address] [place] [address] Trisomy 18 risk Dosage of chromosome-specific cfDNA Ql (Plasma cell-free+WBC DNA) [Interp] Negative Normal [facility] Comment on above: Order Comment: Ezequiel ngo Type: BLOOD SPECIMEN Ordering Facility: [facility] Address: [address] [place] [address] Performed By: #### M [id number] #### [facility] CLIA [id number] [address] [place] [address] PAP TESTon 11-20-2024 ADEQUACY Normal [facility] Comment on above: Order Comment: Ezequiel ngo Type: FLUID SPECIMEN Ordering Facility: [facility] Address: [address] [place] [address] Result Comment: Sati sfactory for interpretation. Transformation zone present Performed By: #### L [id number] #### [facility] CLIA [id number] [address] [place] [address], [address] [place] [address] [place] [facility] CLIA [id number] [address] [place] [address] [place] CASE REPORT Normal [facility] Comment on above: Order Comment: Ezequiel men Type: FLUID SPECIMEN Ordering Facility: [facility] Address: [address] [place] [address] Result Comment: Gyne cologic Cytology Report Case: [id number] Authorizing Provider: Lanny Perdomo APRN.PLANT ECOLOGIST Collected: 11/20/2024 02:35 PM Ordering Location: OB/Gynecology Received: 11/20/2024 04:48 PM First Screen: Keo, Sue, CT, ASCP Specimen: Pap Test, ThinPrep, Cervix Performed By: #### L [id number] #### [facility] CLIA [id number] [address] [place] [address] 3, [address] [place] [address] [place] [facility] CLIA [id number] [address] [place] [address] [place] CLINICAL HISTORY, CYTOLOGY, DELICATESSEN STORE MANAGER Routine Exam Normal [facility] Comment on above: Order Comment: Speci men Type: FLUID SPECIMEN Ordering Facility: [facility] Address: [address] [place] [address] Performed By: #### L [id number] #### [facility] CLIA [id number] [address] [place] [address], [address] [place] [address] [place] [facility] CLIA [id number] [address] [place] [address] [place] FINAL PERFORMING LAB Normal [facility] Comment on above: Order Comment: Speci men Type: FLUID SPECIMEN Ordering Facility: [facility] Address: [address] [place] [address] Result Comment: Tech nical component, web marketing coordinator screening performed at: [facility], [address] [place] [address], [address]th Floor, [place] [address] CLIA: [id number] Diagnostic interpretation performed at: [facility], [address] [place] [address], [address]th Floor, [place] [id number] CLIA# [id number] Emt I/99: Mele Nolasco MD Performed By: #### L [id number] #### [facility] CLIA [id number] [address] [place] [address] 3, [address] [place] [address] [place] [facility] CLIA [id number] [address] [place] [address], [place] [address] [place] INTERPRETATION, CYTOLOGY, DELICATESSEN STORE MANAGER Normal [facility] Comment on above: Order Comment: Speci men Type: FLUID SPECIMEN Ordering Facility: [facility] Address: [address] [place] [address] Result Comment: Nega tive for intraepithelial lesion or malignancy. at 0803 EDT Performed By: #### L [id number] #### [facility] CLIA [id number] [address] [place] [address] 3, [address] [place], [place] [address] [place] [facility] CLIA [id number] [address] [place] [address] [place] LMP 08/28/[address] [facility] Comment on above: Order Comment: Speci men Type: FLUID SPECIMEN Ordering Facility: [facility] Address: [address] [place] [address] Performed By: #### L [id number] #### [facility] CLIA [id number] [address] [place] [address], [address] [place], [place] [address] [place] [facility] CLIA [id number] [address] [place] [address], [place] [address] [place] PAP DISCLAIMER COMMENT The Pap Smear is a screening test for cervical cancer. False negative results occur with all screening tests, emphasizing the need for rescreening at recommended intervals, and clinical correlation. Normal [facility] Comment on above: Order Comment: Speci men Type: FLUID SPECIMEN Ordering Facility: [facility] Address: [address] [place], [place] [address] Performed By: #### L [id number] #### [facility] CLIA [id number] [address] [place] [address], [address] [place] [address] [place] [facility] CLIA [id number] [address] [place] [address], [place] [address] [place] PAP STORAGE FACILITY HOUSEKEEPER COMMENT This specimen has been analyzed by the FDA-approved BYOM!TM System, which uses digital imaging and an enhanced artificial intelligence image analysis algorithm to identify soto of interest on the microscopic slide, to assist the tax clerk and pathologist in evaluating cells on ThinPrep Pap tests. Following analysis, soto of interest on the microscopic slide selected by the algorithm are reviewed by a tax clerk. If a sample requires hierarchical review, the pathologist will review the same soto of interest selected by the algorithm prior to final interpretation. Normal [facility] Comment on above: Order Comment: Speci huber Type: FLUID SPECIMEN Ordering Facility: [facility] Address: [address] [place] [address] Performed By: #### L [id number] #### [facility] CLIA [id number] [address] [place] [address], [address] [place] [address] STATES OF [facility] CLIA [id number] [address] [place] [address] [place] RUBELLA IGG ANTIBODYon 11-20 RUBELLA IGG AB, QUAL Positive Normal Positive [facility] Comment on above: Order Comment: Ezequiel ngo Type: BLOOD SPECIMEN Ordering Facility: [facility] Address: [address] [place] [address] Result Comment: The result suggests recent or past exposure to Rubella virus or history of Rubella vaccination. Positive result may also be seen due to presence of passively-transferred antibodies. Please correlate with patient's history. Performed By: #### R [id number] #### [facility] CLIA [id number] [address] [place] [address] [place] Reagin and Treponema pallidu m IgG and IgM [Interp]on 11-20-2024 T. pallidum IgG+IgM IA Ql (S) Non-Reactive Normal Nonreactive [facility] Comment on above: Order Comment: Ezequiel ngo Type: BLOOD SPECIMEN Ordering Facility: [facility] Address: [address] [place] [address] Performed By: #### 5 195-3, 48690-6, 97162-9 #### [facility] CLIA [id number] [address] [place] [address] [place] Reagin+T pallidum IgG+IgM Se rPl-Impon 11-20-2024 Reagin and Treponema pallidum IgG and IgM [Interp] Cannot exclude recent Treponemal infection if specimen collected within 7-10 days after appearance of suspect lesions or 2-3 weeks after an exposure. Clinical correlation is required. Normal [facility] Comment on above: Order Comment: Speci men Type: BLOOD SPECIMEN Ordering Facility: [facility] Address: [address] [place] [address] Performed By: #### 5 195-3, 82559-3, 46208-1 #### [facility] CLIA [id number] [address] [place] [address] [place] TRICHOMONAS VAGINALIS NAATon 11-20-2024 T. vaginalis DNA RADHA+probe Ql (Unsp spec) Not detected Normal Not detected [facility] Comment on above: Order Comment: Speci men Type: BLOOD SPECIMEN Ordering Facility: [facility] Address: [address] [place] [address] Performed By: #### 5 7021-8 #### [facility] CLIA [id number] [address] [place] [address] [place] TYPE + SCREEN PRENATALon ABO group Nom (Bld) A [facility] Blood group antibody screen Ql Negative [facility] Rh Nom (Bld) Positive [facility] Type and Screen Expiration 11/23/2024 23:59 [facility] ABO A Normal [facility] Comment on above: Order Comment: Speci men Type: BLOOD SPECIMEN Ordering Facility: [facility] Address: [address] [place] [address] Performed By: #### 5 7021-8 #### [facility] CLIA [id number] [address] [place] [address] [place] Rh Nom (Bld) Positive Normal [facility] Comment on above: Order Comment: Speci men Type: BLOOD SPECIMEN Ordering Facility: [facility] Address: [address] [place] [address] Performed By: #### 5 7021-8 #### [facility] CLIA [id number] [address] TYPE AND SCREEN EXPIRATION 11/23/2024 23:[address] [facility] Comment on above: Order Comment: Ezequiel ngo Type: BLOOD SPECIMEN Ordering Facility: [facility] Address: [address] [place] [address] Performed By: #### 5 7021-8 #### [facility] CLIA [id number] [address] CNOVon 10-08-2024 CNOV Office Visit ([facility] ) CONNIE SANFORD ([id number]) 1980 [facility] Date Time Provider Department 10/08/24 8:45 AM DAVON STAFFORD During your visit today, we recorded the following information about you: Pulse Respiration Blood pressure Weight 86/minute 16/minute 103/69 75.7 kg Davon Stafford APRN.PLANT ECOLOGIST 10/08/2024 9:36 AM Signed [facility] Subjective Connie Sanford is a 43 year old female. Patient presents with: Rash: Has poison alejandro, on eye and face. Patient is 6 weeks . Ear feels full also Rash Rash and Eye Swelling: - Rash and swelling began Sunday night, with progressive worsening. - Rash is located on the face, arms, and legs. - Swelling and itching around the eyes, more pronounced today than yesterday. - Using Benadryl with relief. - Suspects exposure from children's clothing; believes it may be poison sumac. - Family members, including an 8-year-old son, also have similar rashes. Review of Systems Skin: Positive for rash. Eyes: (-) periorbital edema, (+) itchy eyes, (-) visual disturbances Skin: (+) rash on arms/legs/face, (+) pruritus Objective BP 103/69 Pulse 86 Resp 16 Wt 75.7 kg (166 lb 12.5 oz) LMP 06/06/2021 (Exact Date) SpO2 100% BMI 28.63 kg/m? Physical Exam Vitals and nursing note reviewed. Constitutional: Appearance: Normal appearance. HENT: Head: Normocephalic and atraumatic. Eyes: General: Lids are everted, no foreign bodies appreciated. Conjunctiva/sclera: Right eye: Right conjunctiva is not injected. No exudate or hemorrhage. Left eye: Left conjunctiva is not injected. No exudate or hemorrhage. Pupils: Pupils are equal, round, and reactive to light. Comments: Mild left upper lid swelling Cardiovascular: Rate and Rhythm: Normal rate and regular rhythm. Musculoskeletal: Cervical back: Normal range of motion and neck supple. Skin: Findings: Rash present. Rash is macular and papular. Rash is not crusting, purpuric or vesicular. Comments: Pruritic erythremic papular on face and arms bilaterally and trunk Neurological: Mental Status: She is alert. {1. Contact dermatitis due to plants, except food, unspecified contact dermatitis type (L25.5) - Clinical presentation consistent with contact dermatitis secondary to plant exposure, likely poison alejandro or sumac. - Advised use of Zyrtec during the day to manage pruritus, with Benadryl at night for additional relief and sedation. - Prescribed topical Kenalog cream to be applied to affected areas, including eyelids, for no longer than 10 days on the eyelids and 2 weeks on the face to reduce inflammation and pruritus. - Discussed risks of systemic corticosteroids during , including potential teratogenic effects such as cleft palate; oral steroids to be considered only if severe periorbital edema threatens vision. - Recommended use of IV Dry Soap or similar emulsifying soaps to remove urushiol oil and prevent further spread. - Patient understands and agrees with the treatment plan. and Recording using [employer] software for draft documentation of the visit was discussed with the patient/authorized food products sales representative; all questions welcomed and answered. Patient/authorized food products sales representative agreed to proceed History and Record Review External record(s) reviewed: prior outpatient record. Findings from review of outpatient records: previous medical history Differential Diagnoses - Contact dermatitis is more likely for the following reason(s): suggested by HANDP - Peroribital cellulitis is less likely for the following reason(s): HANDP not suggestive Disposition The patient was discharged. OTC Medications were advised: Tylenol Zyrtec Davon Stafford APRN.PLANT ECOLOGIST 10/08/2024 9:29 AM Signed - Wash affected areas in the shower with IV Dry Soap (e.g., Tecnu or Sosavino) to emulsify and remove the poison alejandro oil; rinse thoroughly. - Use one towel for your face and a separate towel for the rest of your body when drying off. - Wash clothing, bed sheets, and towels separately in hot water with a reliable detergent (e.g., blue Tide) to remove any remaining oil. - Apply the prescribed topical steroid cream (Kenalog) to all affected areas. L - Continue taking Benadryl at bedtime to help reduce nighttime itching and aid sleep. - Take Zyrtec (cetirizine) up to three times a day (morning, afternoon, evening) for daytime itch relief; you can still take Benadryl at night. - If itching or puffiness around the eye feels severe, apply a warm compress over the eyelid for comfort--avoid rubbing to prevent spreading the oil. - Monitor your eyes closely. If an eye becomes extremely swollen, shuts completely, or you notice any change or loss of vision, contact your distillation operator risk/benefit of systemic steroids during . 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 Normal [facility] CBC W/Diff, Automatedon 01-19 Absolute Lymph 1.84 X10 3/uL Normal 0.83-4.51 [facility] Comment on above: Performed By: #### L 500.4050, L500.4100, L100.0100 #### [facility] [address] [place], [address] Absolute Neut 3.6 X10 3/uL Normal 2.0-7.7 [facility] Comment on above: Performed By: #### L 500.4050, L500.4100, L100.0100 #### [facility] [address] [place], [address] Basophils/100 WBC (Bld) 0.7 % Normal 0-1 [facility] Comment on above: Performed By: #### L 500.4050, L500.4100, L100.0100 #### [facility] [address] [place], [address] Eosinophils/100 WBC (Bld) 2.3 % Normal 0-5 [facility] Comment on above: Performed By: #### L 500.4050, L500.4100, L100.0100 #### [facility] [address] [place], [address] Erythrocyte distribution width (RBC) [Ratio] 12.3 % Normal 11.6-14.6 [facility] Comment on above: Performed By: #### L 500.4050, L500.4100, L100.0100 #### [facility] [address] [place], [address] Hematocrit (Bld) [Volume fraction] 36.8 % Low 37-47 [facility] Comment on above: Performed By: #### L 500.4050, L500.4100, L100.0100 #### [facility] [address] [place], [address] Hemoglobin (Bld) [Mass/Vol] 11.8 g/dL Low 12.0-15.0 [facility] Comment on above: Performed By: #### L 500.4050, L500.4100, L100.0100 #### [facility] [address] [place], [address] IG% 0.200 Normal 0.0-0.9 [facility] Comment on above: Result Comment: IG% - Immature Granulocytes (promyelocytes, myelocytes and metamyelocytes) > 1% indicates that a LEFT SHIFT is Present. Performed By: #### L 500.4050, L500.4100, L100.0100 #### [facility] [address] [place], [address] Lymphocytes/100 WBC (Bld) 30.3 % Normal 19-41 [facility] Comment on above: Performed By: #### L 500.4050, L500.4100, L100.0100 #### [facility] [address] [place], [address] MCH (RBC) [Entitic mass] 30.3 pg Normal 27.0-32.0 [facility] Comment on above: Performed By: #### L 500.4050, L500.4100, L100.0100 #### [facility] [address] [place], [address] MCHC (RBC) [Mass/Vol] 32.1 g/dL Normal 32-36 [facility] Comment on above: Performed By: #### L 500.4050, L500.4100, L100.0100 #### [facility] [address] [place], [address] MCV (RBC) [Entitic vol] 94.4 fL Normal 81-99 [facility] Comment on above: Performed By: #### L 500.4050, L500.4100, L100.0100 #### [facility] [address] [place], [address] Monocytes/100 WBC (Bld) 6.9 % Normal 0-10 [facility] Comment on above: Performed By: #### L 500.4050, L500.4100, L100.0100 #### [facility] [address] [place], [address] Neutrophils/100 WBC (Bld) 59.6 % Normal 47-70 [facility] Comment on above: Performed By: #### L 500.4050, L500.4100, L100.0100 #### [facility] [address] [place], [address] Nucleated RBC (Bld) [#/Vol] 0 10*3/uL Normal 0-5 [facility] Comment on above: Performed By: #### L 500.4050, L500.4100, L100.0100 #### [facility] [address] [place], [address] Platelet mean volume (Bld) [Entitic vol] 11.3 fL Normal 6.2-12.0 [facility] Comment on above: Performed By: #### L 500.4050, L500.4100, L100.0100 #### [facility] [address] [place], [address] Platelets (Bld) [#/Vol] 206 10*3/uL Normal 150-450 [facility] Comment on above: Performed By: #### L 500.4050, L500.4100, L100.0100 #### [facility] [address] [place], [address] RBC (Bld) [#/Vol] 3.90 10*6/uL Low 4.2-5.4 [facility] Comment on above: Performed By: #### L 500.4050, L500.4100, L100.0100 #### [facility] [address] [place], [address] RDW SD 42.6 fl Normal 35.1-43.9 [facility] Comment on above: Performed By: #### L 500.4050, L500.4100, L100.0100 #### [facility] [address] [place], [address] WBC (Bld) [#/Vol] 6.1 10*3/uL Normal 4.4-11.0 [facility] Comment on above: Performed By: #### L 500.4050, L500.4100, L100.0100 #### [facility] [address] [place], [address] Comprehensive Metabolic [facility] ilon 02-04-2024 Albumin [Mass/Vol] 3.6 g/dL Normal 3.2-5.0 [facility] Comment on above: Performed By: #### L 500.4050, L500.4100, L100.0100 #### [facility] [address] [place], [address] Albumin/Globulin [Mass ratio] 1.1 {ratio} Normal 0.9-2.4 [facility] Comment on above: Performed By: #### L 500.4050, L500.4100, L100.0100 #### [facility] [address] [place], [address] ALK P 44 U/L Low 45-117 [facility] Comment on above: Performed By: #### L 500.4050, L500.4100, L100.0100 #### [facility] [address] [place], [address] ALT [Catalytic activity/Vol] 18 U/L Normal 13-56 [facility] Comment on above: Performed By: #### L 500.4050, L500.4100, L100.0100 #### [facility] [address] [place], [address] AST [Catalytic activity/Vol] 18 U/L Normal 15-37 [facility] Comment on above: Performed By: #### L 500.4050, L500.4100, L100.0100 #### [facility] [address] [place], [address] Bilirubin [Mass/Vol] 0.30 mg/dL Normal 0.20-1.00 [facility] Comment on above: Result Comment: For patients on eltrombopag therapy, use of Dimension [place] TBIL is not recommended. Performed By: #### L 500.4050, L500.4100, L100.0100 #### [facility] [address] [place], [address] BUN/CRE 16.2 RATIO Normal 10-20 [facility] Comment on above: Performed By: #### L 500.4050, L500.4100, L100.0100 #### [facility] [address] [place], [address] CA,Total 9.2 mg/dL Normal 8.5-10.1 [facility] Comment on above: Performed By: #### L 500.4050, L500.4100, L100.0100 #### [facility] [address] [place], [address] Chloride [Moles/Vol] 108 mmol/L High 98-107 [facility] Comment on above: Performed By: #### L 500.4050, L500.4100, L100.0100 #### [facility] [address] [place], [address] CO2 [Moles/Vol] 29.0 mmol/L Normal 21.0-32.0 [facility] Comment on above: Performed By: #### L 500.4050, L500.4100, L100.0100 #### [facility] [address] [place], [address] Creatinine [Mass/Vol] 0.68 mg/dL Normal 0.55-1.02 [facility] Comment on above: Result Comment: The validity of the calculated GFR GFRAA in patients over 70 years has not been determined. Clinical correlation is essential. Performed By: #### L 500.4050, L500.4100, L100.0100 #### [facility] [address] [place], [address] EST GFR - AA 122 mL/min Normal >60 [facility] Comment on above: Result Comment: Afri can [place] GFR Calc Performed By: #### L 500.4050, L500.4100, L100.0100 #### [facility] [address] [place], [address] GAP 3 Low 5-15 [facility] Comment on above: Performed By: #### L 500.4050, L500.4100, L100.0100 #### [facility] [address] [place], [address] GFR/1.73 sq M.predicted among non-blacks MDRD (S/P/Bld) [Vol rate/Area] 100 mL/min/{1.73_m2} Normal >60 [facility] Comment on above: Result Comment: Non- GFR Calc Performed By: #### L 500.4050, L500.4100, L100.0100 #### [facility] [address] [place], [address] Globulin (S) [Mass/Vol] 3.2 g/dL Normal 2.2-4.2 [facility] Comment on above: Performed By: #### L 500.4050, L500.4100, L100.0100 #### [facility] [address] [place], [address] Glucose [Mass/Vol] 90 mg/dL Normal 74-106 [facility] Comment on above: Performed By: #### L 500.4050, L500.4100, L100.0100 #### [facility] [address] [place], [address] Potassium [Moles/Vol] 4.3 mmol/L Normal 3.5-5.1 [facility] Comment on above: Performed By: #### L 500.4050, L500.4100, L100.0100 #### [facility] [address] [place], [address] Sodium [Moles/Vol] 140 mmol/L Normal 136-145 [facility] Comment on above: Performed By: #### L 500.4050, L500.4100, L100.0100 #### [facility] [address] [place], [address] T PROT 6.8 g/dL Normal 6.4-8.2 [facility] Comment on above: Performed By: #### L 500.4050, L500.4100, L100.0100 #### [facility] [address] [place], [address] Urea nitrogen [Mass/Vol] 11 mg/dL Normal 7-18 [facility] Comment on above: Performed By: #### L 500.4050, L500.4100, L100.0100 #### [facility] [address] [place], [address] Lipid Profileon 02-04-2024 Cholesterol [Mass/Vol] 169 mg/dL Normal 200 [facility] Comment on above: Result Comment: <200 mg/dL Desirable 200-240 mg/dL Borderline >240 mg/dL High Risk Performed By: #### L 500.4050, L500.4100, L100.0100 #### [facility] [address] [place], [address] Cholesterol in HDL [Mass/Vol] 72 mg/dL Normal [facility] Comment on above: Result Comment: The drugs N-Acetylcysteine and Metamizole may falsely depress this assay. Reference Range HDL <40 mg/dL Low HDL Cholesterol HDL >or= 60 mg/dL High HDL Cholesterol Performed By: #### L 500.4050, L500.4100, L100.0100 #### [facility] [address] [place], [address] Cholesterol in LDL [Mass/Vol] 84 mg/dL Normal 0-130 [facility] Comment on above: Performed By: #### L 500.4050, L500.4100, L100.0100 #### [facility] [address] [place], [address] Cholesterol in VLDL [Mass/Vol] 13 mg/dL Normal 5-40 [facility] Comment on above: Performed By: #### L 500.4050, L500.4100, L100.0100 #### [facility] [address] [place], [address] Triglyceride [Mass/Vol] 65 mg/dL Normal [facility] Comment on above: Result Comment: The drugs N-Acetylcysteine and Metamizole may falsely depress this assay. Serum Triglycerides Reference Interval Normal <150 mg/dL Borderline high 150 - 199 mg/dL High 200 - 499 mg/dL Very High > or = 500 mg/dL Performed By: #### L 500.4050, L500.4100, L100.0100 #### [facility] [address] [place], [address] Absolute lymphocyte countOrd ered By: Clemencia Garcia on 01-18-2023 Lymphocytes Auto (Unsp spec) [#/Vol] 1.84 10*3/uL 0.83-4.51 [facility] Basophil percentageOrdered B y: Clemencia Garcia on 01-18-2023 Basophils/100 WBC (Bld) 0.6 % 0-1 [facility] Bilirubin [Mass/Vol] 0.40 mg/dL 0.20-1.00 [facility] Comment on above: For patients on eltr ombopag therapy, use of Dimension [place] TBIL is not recommended. Chloride [Moles/Vol] 109 mmol/L 98-107 [facility] Cholesterol [Mass/Vol] 182 mg/dL <200 [facility] Comment on above: <200 mg/dL Desirable 200-240 mg/dL Borderline >240 mg/dL High Risk Eosinophils/100 WBC (Bld) 2.7 % 0-5 [facility] Glucose [Mass/Vol] 73 mg/dL 74-106 [facility] Neutrophils (Bld) [#/Vol] 2.9 10*3/uL 2.0-7.7 [facility] Neutrophils/100 WBC (Bld) 55.1 % 47-70 [facility] Potassium [Moles/Vol] 4.3 mmol/L 3.5-5.1 [facility] Protein [Mass/Vol] 7.4 g/dL 6.4-8.2 [facility] Sodium [Moles/Vol] 140 mmol/L 136-145 [facility] Triglyceride [Mass/Vol] 52 mg/dL <199 [facility] Comment on above: The drugs N-Acetylcy steine and Metamizole may falsely depress this assay.Serum Triglycerides Reference Interval Normal <150 mg/dL Borderline high 150 - 199 mg/dL High 200 - 499 mg/dL Very High > or = 500 mg/dL WBC (Bld) [#/Vol] 5.2 10*3/uL 4.4-11.0 [facility] Blood erythrocytes count (nu mber/volume)Ordered By: Clemencia Garcia on 01-18-2023 RBC (Bld) [#/Vol] 4.19 10*6/uL 4.2-5.4 [facility] Blood hemoglobin measurement (mass/volume)Ordered By: Clemencia Garcia on 01-18-2023 Hemoglobin (Bld) [Mass/Vol] 12.7 g/dL 12.0-15.0 [facility] Blood lymphocytes/100 leukoc ytesOrdered By: Clemencia Garcia on 01-18-2023 Lymphocytes/100 WBC (Bld) 35.4 % 19-41 [facility] Blood monocytes/100 leukocyt esOrdered By: Clemencia Garcia on 01-18-2023 Monocytes/100 WBC (Bld) 6.2 % 0-10 [facility] Blood platelet mean volumeOr dered By: Clemencia Garcia on 01-18-2023 Platelet mean volume (Bld) [Entitic vol] 11.4 fL 6.2-12.0 [facility] Determination of erythrocyte mean corpuscular volume (MCV)Ordered By: Clemencia Garcia on 01-18-2023 MCV (RBC) [Entitic vol] 95.0 fL 81-99 [facility] Hematocrit Auto (Bld) [Volum e fraction]Ordered By: Clemencia Garcia on 01-18-2023 Hematocrit (Bld) [Volume fraction] 39.8 % 37-47 [facility] Iron measurement (mass/mass) Ordered By: Clemencia Garcia on 01-18-2023 Iron (Unsp spec) [Mass/Mass] 110 ug/dL 50-170 [facility] - Chemistry and C hemistry - challengeOrdered By: Clemencia Garcia on 01-18-2023 ALP [Catalytic activity/Vol] 83 U/L 45-117 [facility] ALT [Catalytic activity/Vol] 21 U/L 13-56 [facility] CO2 [Moles/Vol] 28.0 mmol/L 21.0-32.0 [facility] Cobalamin (Vitamin B12) [Mass/Vol] 536 pg/mL 211-911 [facility] Globulin (S) [Mass/Vol] 3.6 g/dL 2.2-4.2 [facility] Urea nitrogen/Creatinine [Mass ratio] 19.1 mg/mg 10-20 [facility] - Hematology and Cell countsOrdered By: Clemencia Garcia on 01-18-2023 Erythrocyte distribution width (RBC) [Entitic vol] 43.3 fL 35.1-43.9 [facility] Erythrocyte distribution width (RBC) [Ratio] 12.5 % 11.6-14.6 [facility] Immature granulocytes/100 WBC (Bld) 0.000 % 0.0-0.9 [facility] Comment on above: IG% - Immature Granu locytes (promyelocytes, myelocytes and metamyelocytes) > 1% indicates that a LEFT SHIFT is Present. MCH (RBC) [Entitic mass] 30.3 pg 27.0-32.0 [facility] Nucleated RBC/100 WBC (Bld) [Ratio] 0 % 0-5 [facility] MCHC Auto (RBC) [Mass/Vol]Or dered By: Clemencia Garcia on 01-18-2023 MCHC (RBC) [Mass/Vol] 31.9 g/dL 32-36 [facility] No Panel InformationOrdered By: Clemencia Garcia on 01-18-2023 Estimated GFR (MDRD) Amer 112 mL/min >60 [facility] Comment on above: GFR Calc Estimated GFR (MDRD) Non-Af Amer 93 mL/min >60 [facility] Comment on above: Non- GFR Calc Thyroid Stimulating Hormone (TSH) 0.81 uIU/mL 0.358-3.74 [facility] Total Iron Binding Capacity 331 ug/dL 250-450 [facility] Platelets bldOrdered By: Francis Garcia on 01-18-2023 Platelets (Bld) [#/Vol] 229 10*3/uL 150-450 [facility] Serum or plasma albumin oseas urement (mass/volume)Ordered By: Clemencia Garcia on 01-18-2023 Albumin [Mass/Vol] 3.8 g/dL 3.2-5.0 [facility] Serum or plasma albumin/glob ulin mass ratioOrdered By: Clemencia Garcia on 01-18-2023 Albumin/Globulin [Mass ratio] 1.1 {ratio} 0.9-2.4 [facility] Serum or plasma calcitriol m easurement (mass/volume)Ordered By: Clemencia Garcia on 01-18-2023 1,25-dihydroxyvitamin D3 [Mass/Vol] 52.9 pg/mL 24.8-81.5 [facility] Comment on above: Performed at: - L [address] [id number] Director: Natali Martínez MD, Phone: [phone] Serum or plasma calcium oseas urement (mass/volume)Ordered By: Clemencia Garcia on 01-18-2023 Calcium [Mass/Vol] 8.8 mg/dL 8.5-10.1 [facility] Serum or plasma cholesterol in HDL measurement (mass/volume)Ordered By: Clemencia Garcia on 01-18-2023 Cholesterol in HDL [Mass/Vol] 66 mg/dL >40 [facility] Comment on above: The drugs N-Acetylcy steine and Metamizole may falsely depress this assay. Reference Range HDL <40 mg/dL Low HDL Cholesterol HDL >or= 60 mg/dL High HDL Cholesterol Serum or plasma cholesterol in VLDL measurement (mass/volume)Ordered By: Clemencia Garcia on 01-18-2023 Cholesterol in VLDL [Mass/Vol] 10 mg/dL 5-40 [facility] Serum or plasma creatinine m easurement (mass/volume)Ordered By: Clemencia Garcia on 01-18-2023 Creatinine [Mass/Vol] 0.73 mg/dL 0.55-1.02 [facility] Comment on above: The validity of the calculated GFR & GFRAA in patients over 70 years has not been determined. Clinical correlation is essential. Serum or plasma iron saturat ion measurement (mass fraction)Ordered By: Clemencia Garcia on 01-18-2023 Iron saturation [Mass fraction] 33.2 % 15.0-55.0 [facility] Serum or plasma low density lipoprotein (LDL) cholesterol measurement (mass/volume)Ordered By: Clemencia Garcia on 01-18-2023 Cholesterol in LDL [Mass/Vol] 106 mg/dL 0-130 [facility] Serum or plasma urea nitroge n measurement (mass/volume)Ordered By: Clemencia Garcia on 01-18-2023 Urea nitrogen [Mass/Vol] 14 mg/dL 7-18 [facility] Thin prep Papanicolaou smear with manual screeningOrdered By: Clemencia Garcia on 01-18-2023 Thin prep Papanicolaou smear with manual screening 13 U/L 15-37 [facility] Thin prep Papanicolaou smear with manual screening 3 5-15 [facility] Absolute lymphocyte counton 03-07-2022 Lymphocytes Auto (Unsp spec) [#/Vol] 1.49 10*3/uL 0.83-4.51 [facility] Work Phone: Basophil percentageon 2021 Basophils/100 WBC (Bld) 0.4 % 0-1 [facility] Work Phone: Eosinophils/100 WBC (Bld) 2.1 % 0-5 [facility] Work Phone: Neutrophils (Bld) [#/Vol] 7.2 10*3/uL 2.0-7.7 [facility] Work Phone: Neutrophils/100 WBC (Bld) 72.3 % 47-70 [facility] Work Phone: WBC (Bld) [#/Vol] 9.9 10*3/uL 4.4-11.0 [facility] Work Phone: [phone] Blood erythrocytes count (nu mber/volume)on 03-07-2022 RBC (Bld) [#/Vol] 3.53 10*6/uL 4.2-5.4 [facility]: [phone] Blood hemoglobin measurement (mass/volume)on 03-07-2022 Hemoglobin (Bld) [Mass/Vol] 10.3 g/dL 12.0-15.0 [facility] Work Phone: [phone] Blood lymphocytes/100 leukoc yteson 03-07-2022 Lymphocytes/100 WBC (Bld) 15.0 % 19-41 [facility] Work Phone: [phone] Blood monocytes/100 leukocyt eson 03-07-2022 Monocytes/100 WBC (Bld) 8.9 % 0-10 [facility] Work Phone: [phone] Blood platelet mean volumeon 03-07-2022 Platelet mean volume (Bld) [Entitic vol] 11.7 fL 6.2-12.0 [facility] Work Phone: Determination of erythrocyte mean corpuscular volume (MCV)on 03-07-2022 MCV (RBC) [Entitic vol] 93.2 fL 81-99 [facility] Work Phone: [phone] Hematocrit Auto (Bld) [Volum e fraction]on 03-07-2022 Hematocrit (Bld) [Volume fraction] 32.9 % 37-47 [facility] Work Phone: Laboratory - Hematology and Cell countson 03-07-2022 Erythrocyte distribution width (RBC) [Entitic vol] 43.8 fL 35.1-43.9 [facility] Work Phone: [phone] Erythrocyte distribution width (RBC) [Ratio] 12.9 % 11.6-14.6 [facility] Work Phone: [phone] Immature granulocytes/100 WBC (Bld) 1.300 % 0.0-0.9 [facility] Work Phone: Comment on above: IG% - Immature Granu locytes (promyelocytes, myelocytes and metamyelocytes) > 1% indicates that a LEFT SHIFT is Present. MCH (RBC) [Entitic mass] 29.2 pg 27.0-32.0 [facility] Work Phone: Nucleated RBC/100 WBC (Bld) [Ratio] 0 % 0-5 [facility] Work Phone: MCHC Auto (RBC) [Mass/Vol]on 03-07-2022 MCHC (RBC) [Mass/Vol] 31.3 g/dL 32-36 [facility] Work Phone: Platelets bldon 03-07-2022 Platelets (Bld) [#/Vol] 173 10*3/uL 150-450 [facility] Work Phone: URINE OB DIP B/Oon 2 Glucose Ql (U) Negative Neg mg/dL [facility] Protein.monoclonal (U) [Mass/Vol] Negative Neg mg/dL [facility] URINE OB DIP B/Oon 2 Glucose Ql (U) Negative Neg mg/dL [facility] Protein.monoclonal (U) [Mass/Vol] Negative Neg mg/dL [facility] URINE OB DIP B/Oon 2 Glucose Ql (U) Negative Neg mg/dL [facility] Protein.monoclonal (U) [Mass/Vol] Negative Neg mg/dL [facility] Absolute lymphocyte counton 01-16-2022 Lymphocytes Auto (Unsp spec) [#/Vol] 1.67 10*3/uL 0.83-4.51 [facility] Work Phone: Basophil percentageon 2021 Basophils/100 WBC (Bld) 0.4 % 0-1 [facility] Work Phone: Bilirubin [Mass/Vol] 0.30 mg/dL 0.20-1.00 [facility] Work Phone: Comment on above: For patients on eltr ombopag therapy, use of Dimension [place] TBIL is not recommended. Chloride [Moles/Vol] 109 mmol/L 98-107 [facility] Phone: Cholesterol [Mass/Vol] 395 mg/dL <200 [facility] Work Phone: Comment on above: <200 mg/dL Desirable 200-240 mg/dL Borderline >240 mg/dL High Risk Eosinophils/100 WBC (Bld) 2.7 % 0-5 [facility] Work Phone: Glucose [Mass/Vol] 73 mg/dL 74-106 [facility] Work Phone: Neutrophils (Bld) [#/Vol] 6.4 10*3/uL 2.0-7.7 [facility] Work Phone: Neutrophils/100 WBC (Bld) 70.4 % 47-70 [facility] Work Phone: Potassium [Moles/Vol] 4.0 mmol/L 3.5-5.1 [facility] Work Phone: Protein [Mass/Vol] 6.1 g/dL 6.4-8.2 [facility] Work Phone: Sodium [Moles/Vol] 137 mmol/L 136-145 [facility] Work Phone: Triglyceride [Mass/Vol] 324 mg/dL <199 [facility] Work Phone: Comment on above: The drugs N-Acetylcy steine and Metamizole may falsely depress this assay.Serum Triglycerides Reference Interval Normal <150 mg/dL Borderline high 150 - 199 mg/dL High 200 - 499 mg/dL Very High > or = 500 mg/dL WBC (Bld) [#/Vol] 9.1 10*3/uL 4.4-11.0 [facility] Work Phone: Blood erythrocytes count (nu mber/volume)on 01-16-2022 RBC (Bld) [#/Vol] 3.35 10*6/uL 4.2-5.4 [facility] Work Phone: Blood hemoglobin measurement (mass/volume)on 01-16-2022 Hemoglobin (Bld) [Mass/Vol] 10.9 g/dL 12.0-15.0 [facility] Work Phone: [phone] Blood lymphocytes/100 leukoc yteson 01-16-2022 Lymphocytes/100 WBC (Bld) 18.3 % 19-41 [facility] Work Phone: [phone] Blood monocytes/100 leukocyt eson 01-16-2022 Monocytes/100 WBC (Bld) 7.2 % 0-10 [facility] Work Phone: [phone] Blood platelet mean volumeon 01-16-2022 Platelet mean volume (Bld) [Entitic vol] 11.2 fL 6.2-12.0 [facility] Work Phone: [phone] Determination of erythrocyte mean corpuscular volume (MCV)on 01-16-2022 MCV (RBC) [Entitic vol] 96.4 fL 81-99 [facility] Work Phone: [phone] Hematocrit Auto (Bld) [Volum e fraction]on 01-16-2022 Hematocrit (Bld) [Volume fraction] 32.3 % 37-47 [facility] Work Phone: [phone] Laboratory - Chemistry and C hemistry - challengeon 01-16-2022 ALP [Catalytic activity/Vol] 86 U/L 45-117 [facility] Work Phone: [phone] ALT [Catalytic activity/Vol] 16 U/L 13-56 [facility] Work Phone: [phone] CO2 [Moles/Vol] 22.0 mmol/L 21.0-32.0 [facility] Work Phone: [phone] Globulin (S) [Mass/Vol] 3.6 g/dL 2.2-4.2 [facility] Work Phone: [phone] Urea nitrogen/Creatinine [Mass ratio] 11.0 mg/mg 10-20 [facility] Work Phone: [phone] Laboratory - Hematology and Cell countson 01-16-2022 Erythrocyte distribution width (RBC) [Entitic vol] 43.1 fL 35.1-43.9 [facility] Work Phone: [phone] Erythrocyte distribution width (RBC) [Ratio] 12.3 % 11.6-14.6 [facility] Work Phone: [phone] Immature granulocytes/100 WBC (Bld) 1.000 % 0.0-0.9 [facility] Work Phone: [phone] Comment on above: IG% - Immature Granu locytes (promyelocytes, myelocytes and metamyelocytes) > 1% indicates that a LEFT SHIFT is Present. MCH (RBC) [Entitic mass] 32.5 pg 27.0-32.0 [facility] Work Phone: [phone] Nucleated RBC/100 WBC (Bld) [Ratio] 0 % 0-5 [facility] Work Phone: [phone] MCHC Auto (RBC) [Mass/Vol]on 01-16-2022 MCHC (RBC) [Mass/Vol] 33.7 g/dL 32-36 [facility] Work Phone: [phone] Panel Informationon 01-16 Estimated GFR (MDRD) Amer 158 mL/min >60 [facility] Work Phone: [phone] Comment on above: GFR Calc Estimated GFR (MDRD) Non-Af Amer 130 mL/min >60 [facility] Work Phone: Comment on above: Non- GFR Calc Platelets bldon 01-16-2022 Platelets (Bld) [#/Vol] 193 10*3/uL 150-450 [facility] Work Phone: [phone] Serum or plasma albumin oseas urement (mass/volume)on 01-16-2022 Albumin [Mass/Vol] 2.5 g/dL 3.2-5.0 [facility] Work Phone: [phone] Serum or plasma albumin/glob ulin mass ratioon 01-16-2022 Albumin/Globulin [Mass ratio] 0.7 {ratio} 0.9-2.4 [facility] Work Phone: [phone] Serum or plasma calcium oseas urement (mass/volume)on 01-16-2022 Calcium [Mass/Vol] 8.2 mg/dL 8.5-10.1 [facility] Work Phone: Serum or plasma cholesterol in HDL measurement (mass/volume)on 01-16-2022 Cholesterol in HDL [Mass/Vol] 49 mg/dL >40 [facility] Work Phone: Comment on above: The drugs N-Acetylcy steine and Metamizole may falsely depress this assay. Reference Range HDL <40 mg/dL Low HDL Cholesterol HDL >or= 60 mg/dL High HDL Cholesterol Serum or plasma cholesterol in VLDL measurement (mass/volume)on 01-16-2022 Cholesterol in VLDL [Mass/Vol] 65 mg/dL 5-40 [facility] Work Phone: Serum or plasma creatinine m easurement (mass/volume)on 01-16-2022 Creatinine [Mass/Vol] 0.55 mg/dL 0.55-1.02 [facility] Work Phone: Comment on above: The validity of the calculated GFR & GFRAA in patients over 70 years has not been determined. Clinical correlation is essential. Serum or plasma low density lipoprotein (LDL) cholesterol measurement (mass/volume)on 01-16-2022 Cholesterol in LDL [Mass/Vol] 281 mg/dL 0-130 [facility] Work Phone: Serum or plasma urea nitroge n measurement (mass/volume)on 01-16-2022 Urea nitrogen [Mass/Vol] 6 mg/dL 7-18 [facility] Work Phone: [phone] Thin prep Papanicolaou smear with manual screeningon 01-16-2022 Thin prep Papanicolaou smear with manual screening 19 U/L 15-37 [facility] Work Phone: [phone] Thin prep Papanicolaou smear with manual screening 6 5-15 [facility] Work Phone: [phone] URINE OB DIP B/Oon 2 Glucose Ql (U) Negative Neg mg/dL [facility] Protein.monoclonal (U) [Mass/Vol] Negative Neg mg/dL [facility] GLUCOSE GEST, 1 HOURon 01-04 Glucose 1 Hr post Unsp challenge [Mass/Vol] 123 mg/dL Normal 74-179 [facility] Comment on above: Order Comment: Ezequiel ngo Type: BLOOD SPECIMEN Ordering Facility: [facility] Address: [address] [place], [place] [id number] Result Comment: [facility] Congress of Obstetricians and Gynecologists (Vargas/Coustan) guidelines state gestational diabetes mellitus is present when 2 or more of the plasma glucose concentrations meet or exceed the following levels: fastin mg/dl, 1 hr: 180 mg/dl, 2 hr: 155 mg/dl, and 3 hr: 140 mg/dl. Performed By: #### G TGST1 #### [facility] CLIA [id number] [address] [place] [address] [place] GLUCOSE GEST, 2 HOURon 01-04 Glucose 2 Hr post Unsp challenge [Mass/Vol] 89 mg/dL Normal 74-154 [facility] Comment on above: Order Comment: Ezequiel ngo Type: BLOOD SPECIMEN Ordering Facility: [facility] Address: [address] [place], [place] [id number] Result Comment: [facility] Congress of Obstetricians and Gynecologists (Vargas/Coustan) guidelines state gestational diabetes mellitus is present when 2 or more of the plasma glucose concentrations meet or exceed the following levels: fastin mg/dl, 1 hr: 180 mg/dl, 2 hr: 155 mg/dl, and 3 hr: 140 mg/dl. Performed By: #### G TGST2 #### [facility] CLIA [id number] [address] [place] [address] [place] GLUCOSE GEST, 3 HOURon 01-04 Glucose 3 Hr post Unsp challenge [Mass/Vol] 103 mg/dL Normal 74-139 [facility] Comment on above: Order Comment: Ezequiel ngo Type: BLOOD SPECIMEN Ordering Facility: [facility] Address: [address] [place], [place] [id number] Result Comment: [facility] Congress of Obstetricians and Gynecologists (Vargas/Coustan) guidelines state gestational diabetes mellitus is present when 2 or more of the plasma glucose concentrations meet or exceed the following levels: fastin mg/dl, 1 hr: 180 mg/dl, 2 hr: 155 mg/dl, and 3 hr: 140 mg/dl. Performed By: #### G TGST3 #### [facility] CLIA [id number] [address] [place] [address] [place] GLUCOSE GEST, FASTINGon 12-19 Glucose post fast [Mass/Vol] 86 mg/dL Normal 74-94 [facility] Comment on above: Order Comment: Speci men Type: BLOOD SPECIMEN Ordering Facility: [facility] Address: [address] [place] [address] Result Comment: [facility] Congress of Obstetricians and Gynecologists (Alicia/Luis) guidelines state gestational diabetes mellitus is present when 2 or more of the plasma glucose concentrations meet or exceed the following levels: fastin mg/dl, 1 hr: 180 mg/dl, 2 hr: 155 mg/dl, and 3 hr: 140 mg/dl. Performed By: #### G TGSTF #### [facility] CLIA [id number] [address] [place] [address] [place] [facility] URINE OB DIP B/Oon 2 Glucose Ql (U) Negative Neg mg/dL [facility] Protein.monoclonal (U) [Mass/Vol] trace Neg mg/dL [facility] URINE OB DIP B/Oon 2 Glucose Ql (U) Negative Neg mg/dL [facility] Protein.monoclonal (U) [Mass/Vol] Negative Neg mg/dL [facility] CNPNon 12-22-2019 CNPN Telephone (COVHLD) CONNIE SANFORD ([id number]) 1980 F Date Time Provider Department 12/22/19 KEZIA SOTO ([facility]) COVSAVANA During your visit today, we recorded the following information about you: Kezia Soto APRN.CNP 12/22/2019 9:00 PM Signed Thank you for the referral. Careful chart review indicates Connie Sanford DOES meet criteria for COVID-19 testing in accordance with criteria found on the [facility] Intranet COVID19 Toolkit. Please inform Connie that the test has been ordered, and that the [facility] Scheduling Department will call to coordinate a testing appointment. In the meantime please advise the patient to self-quarantine in accordance with CDC recommendations. My Care Provider Pool has been cc'd to receive Connie's result. Please extend our well wishes to Kindly, Kezia Soto APRN.CNP Allergies As of Date: 12/22/2019 (No Known Allergies) Date Reviewed: 12/22/2019 Reviewed by: Uriel Chisholm - Fully Assessed Reason for Visit: Covid-19 Hotline [3880] Primary Visit Diagnosis:Suspected COVID-19 virus infection [Z20.828] Order(s):2019 CORONAVIRUS [SQCOVID] Order #: [id number] FUTURE Problem List As Of Date: 12/22/2019 (None) Encounter Status:Closed by KEZIA SOTO on 12/22/19 [facility] PRO[facility]ESS[facility] 12-22-2019 PROGRESS HNO ID: [id number] Author: Uriel Chisholm Service: ? Author Type: Nurse Practitioner Type: Progress Notes Filed: 12/22/2019 8:27 PM Note Text: This Team Access Model visit is a virtual encounter. It required patient-provider interaction for the medical decision making as documented below. HIPAA secured video was used for evaluation of this patient. Location of patient: [place] Telemedicine Evaluation for COVID-[address] [facility] 32 weeks She contacted OBGYN and abdominal pressure Medications: Aspirin Magnesium SUBJECTIVE: Connie Sanford is a 39 year old year old female who presents for the past 3 days with symptoms that are:gradually worsening. Symptoms include: Positive for Rhinorrhea initially And developed fatigue, and tired body aches described as flu sonido symptoms on Sunday Oral intake:hydration good Tobacco use: No Second hand smoke exposure: No Recent exposure to strep:No Recent travel: no OTC meds/remedies that patient has tried: tylenol Has the patient had any ill contacts? Yes Has the patient had contact with anyone confirmed or a probable case with COVID-19 infection in the last 14 days? Yes-[facility] (last week on 12/12 patient exposure to +COVID and members in MIL household MIL tested positive on 12/14 Does the patient have family with confirmed COVID-19 infection: Yes Has the patient traveled or resided in an area with sustained or ongoing community transmission of COVID-19? No REVIEW OF SYSTEMS: Nasal congestion: Yes Decreased appetite: Yes Signs of dehydration (low fluid intake or voiding, diarrhea, dry mucus membranes): No Decreased level of consciousness: No MAJOR COVID-19 SYMPTOMS: *Coughing: Yes *Shortness of breath: No *Difficulty breathing: No MINOR COVID-19 SYMPTOMS: Fever: (Temp 100.4F or greater) Yes Chills: Yes Headache: Yes Acute loss of smell or taste: No Sore throat: Yes Muscle aches: No Vomiting: No Diarrhea: No *If the patient has one major COVID-19 symptom or two minor COVID-19 symptoms, may clinically have COVID-19 as long as there is no other clinical explanation for the symptom(s). *If the patient is in [place] and in a high risk category and has at least 2 symptoms of : fever, cough, shortness of breath, myalgia, diarrhea, anosmia, loss of taste, and sore throat then the patient may qualify for an ambulatory [facility] COVID-19 test. Route the chart to the COVID-19 HOTLINE POOL for testing determination. PATIENT'S HIGH RISK CATEGORY ASSESSMENT: One major COVID-19 symptom or two minor COVID-19 symptoms Known COVID-19 exposure OBGYN requesting COVID testing referred to virtual services. OBJECTIVE: Video Exam (Examination performed via Video enabled technology) General appearance: Alert, oriented, pleasant, in NAD :Yes Ill appearing :No Lethargic appearing :No Eyes: Sclera clear :Yes Conjunctiva without erythema :Yes Ears: Tragus / outer ear tenderness by self palpation :No Oropharynx: normal, no erythema Frontal sinus tenderness by self palpation;Yes Maxillary sinus tenderness by self palpation :No Tender cervical adenopathy by self palpation :Yes Respiratory distress :No Coughing noted :Yes Audible wheezing noted No ASSESSMENT/PLAN: See encounter diagnoses and orders for additional plan. ASSESSMENT/PLAN: 1. Close exposure to COVID-19 virus - ICD9: , ICD10: Z20.828 (primary diagnosis) 2. Suspected COVID-19 virus infection - ICD9: , ICD10: Z20.828 3. Exposure to COVID-19 virus - ICD9: , ICD10: Z20.828 - 32 weeks -OBGYN requesting COVID testing referred to virtual services this evening Connie Sanford is an 39 year old who appears to have COVID-19 infection and is high risk or with concerning symptoms, recommend COVID-19 testing. This patient encounter involved the screening or treatment of novel coronavirus infection (COVID-19). - Tylenol as directed - Red flags discussed for need for in person care - All questions answered SIGNATURE: Uriel Chisholm APRN.PLANT ECOLOGIST DATE: December 22, 2019 PATIENT INSTRUCTIONS: At present, these are our recommendations regarding the coronavirus (COVID-19) outbreak: - Wash your hands regularly for at least 20 seconds with soap and water, especially before eating. - If soap/water are unavailable, use a hand actuarial clerk with at least 60% alcohol - Avoid touching your eyes, nose and mouth with unwashed hands. - Avoid close contact (within 6 feet) with people who are sick. - Stay home if you are feeling sick. - Cover your cough or sneeze with a tissue, then throw the tissue in the trash. - Standard household cleansers and wipes are effective in cleaning and disinfecting frequently touched objects and surfaces. - Skip events that put you in contact with large groups of people (sporting events, concerts, [employer] martins, etc). - Avoid unnecessary domestic and international travel, including travel through large international airports. - If traveling, wipe down your airplane seat (and tray) with a disinfecting wipe. If you have a fever, cough or shortness of breath, or are otherwise concerned you have COVID-19, we ask that you do not come to any [facility] facility without calling your primary care physician or speaking to a provider using a virtual visit using [facility] Test[facility]? Online. You will be evaluated to determine if you require being seen in person or if you meet CDC guidelines for testing for COVID-19 based on symptoms, travel and exposures. If you meet criteria for testing, your [facility] provider or primary care physician will advise how to proceed with testing - CDC recommends wearing cloth face coverings in public settings where other social distancing measures are difficult to maintain (e.g., grocery stores and pharmacies) especially in areas of significant community-based transmission. Cloth face coverings should: ? fit snugly but comfortably against the side of the face ? be secured with ties or ear loops ? include multiple layers of fabric ? allow for breathing without restriction ? be able to be laundered and machine dried without damage or change to shape Cloth face coverings should not be placed on young children under age 2, anyone who has trouble breathing, or is unconscious, incapacitated or otherwise unable to remove the mask without assistance. - There is no need to stop your immunosuppressive medications preemptively. - If you become sick, please let your doctor know, and discuss with them prior to stopping any medications. - At this point, we have no knowledge that patients on immunosuppressive medications are at higher risk of COVID-19 infection. - People with weakened immune systems are at higher risk of getting severely sick from SARS-CoV-2, the virus that causes COVID-19. - They may also remain infectious for a longer period of time than others with COVID-19, but we cannot confirm this until we learn more about this new virus. Steps You Can Take to Protect Your Health - Continue your regular treatment plan. Don't stop any medications or treatments without talking to your doctor. - Discuss any concerns about your treatment with your doctor. - Keep your regularly scheduled medical appointments. - Talk to your doctor about steps they are taking to reduce risk of exposure to COVID-19 in the office. - Use telehealth services whenever possible if recommended by your doctor. - Ensure that you are getting necessary tests prescribed by your doctor. - Seek urgent medical care if you are feeling unwell. Talk to your doctor, insurer, and pharmacist about getting an emergency supply of prescription medications. Make sure you have at least 30 days of prescription medications, sose-ccr-lunnkci medicines, and supplies on hand in case you need or want to stay home for several weeks. Talk to your doctor or pharmacist about ways to receive your medications by mail. - Take steps to care for your emotional health. Fear and anxiety about COVID-19 can be overwhelming and cause strong emotions. It is natural to feel concerned or stressed about COVID-19. - Learn more about stress and coping with anxiety here. Call your healthcare provider if stress gets in the way of your daily activities for several days in a row. - If you are feeling overwhelmed with emotions like sadness, depression, or anxiety, or feel like you want to harm yourself or others: ? Call 911 if you feel like you want to harm yourself or others ? Visit the Disaster Distress Helplineexternal icon, call , [place] [address] ? Visit the [place] Domestic Violence Hotlineexternal icon or call and TTY Visit the National Suicide Prevention Lifelineexternal icon or call and TTY or text - Most importantly, don't panic. By following basic prevention measures such as hand hygiene and cover your cough, you are helping to keep yourself and others healthy. Additional information can be found on the [facility] and [facility] web sites: https://www.cdc.gov/c oronavirus/2019-nCoV/ index.html https://[facility].org/coronavirus Normal [facility] HCG,Totalon 06-21-[place] [address].0 m[IU]/mL Normal [facility] Comment on above: Result Comment: Male : 0-2 mIU/mL Non- Female: 0-6 mIU/mL Female - Gestational Age: 0.2-1 Week 5 - 50 1-2 Weeks 50 - 500 2-3 Weeks 100 - 5,000 3-4 Weeks 500 - 10,000 4-5 weeks 1,000 - 50,000 5-6 weeks 10,000 - 100,000 6-8 weeks 15,000 - 200,000 2-3 months 10,000 - 100,000 The concentration of hCG in maternal serum rises rapidly in early . hCG levels less than 25 mIU/mL do NOT exclude . A further sample should be tested after 48 hours if is suspected. Performed By: #### L HCG #### [place] [id number] HCG,Totalon 06-19-2019 HCG Qn 9668.0 m[IU]/mL Normal [facility] Comment on above: Result Comment: Male : 0-2 mIU/mL Non- Female: 0-6 mIU/mL Female - Gestational Age: 0.2-1 Week 5 - 50 1-2 Weeks 50 - 500 2-3 Weeks 100 - 5,000 3-4 Weeks 500 - 10,000 4-5 weeks 1,000 - 50,000 5-6 weeks 10,000 - 100,000 6-8 weeks 15,000 - 200,000 2-3 months 10,000 - 100,000 The concentration of hCG in maternal serum rises rapidly in early . hCG levels less than 25 mIU/mL do NOT exclude . A further sample should be tested after 48 hours if is suspected. Performed By: #### L HCG #### [facility] [address] [place], [place] [address] Vital Signs Date Time Vital Sign Value Performing Clinician Valerie flores 12-16-2024 08:44-0400 Body mass index (BMI) [Ratio] 27.98 kg/m2 Valeriano Barron MD Work Phone: [facility] 12-16-2024 08:44-0400 Body weight 73.94 kg Valeriano Barron MD Work Phone: [facility] 12-16-2024 08:44-0400 Diastolic blood pressure 60 mm[Hg] Valeriano Barron MD Work Phone: [facility] 12-16-2024 08:44-0400 Systolic blood pressure 98 mm[Hg] Valeriano Barron MD Work Phone: [facility] 11-20-2024 13:21-0400 Body height 162.6 cm Lanny Perdomo APRN.PLANT ECOLOGIST Work Phone: [facility] 11-20-2024 13:21-0400 Body mass index (BMI) [Ratio] 27.81 kg/m2 Lanny Perdomo APRN.PLANT ECOLOGIST Work Phone: [facility] 11-20-2024 13:21-0400 Body weight 73.48 kg Lanny Perdomo APRN.PLANT ECOLOGIST Work Phone: [facility] 11-20-2024 13:21-0400 Diastolic blood pressure 72 mm[Hg] Lanny Perdomo APRN.PLANT ECOLOGIST Work Phone: [facility] 11-20-2024 13:21-0400 Systolic blood pressure 100 mm[Hg] Lanny Leanne JMIENEZ.PLANT ECOLOGIST Work Phone: [facility] 01-18-2023 15:53-0400 Body height 162.56 cm [facility] 01-18-2023 15:53-0400 Body mass index (BMI) [Ratio] 26.4 kg/m2 [facility] 01-18-2023 15:53-0400 Body temperature 97.7 [degF] [facility] 01-18-2023 15:53-0400 Body weight 69.85 kg [facility] 01-18-2023 15:53-0400 Diastolic blood pressure 60 mm[Hg] [facility] 01-18-2023 15:53-0400 Heart rate 70 /min [facility] 01-18-2023 15:53-0400 Respiratory rate 18 /min [facility] 01-18-2023 15:53-0400 SaO2% (BldA) [Mass fraction] 98 % [facility] 01-18-2023 15:53-0400 Systolic blood pressure 100 mm[Hg] [facility] 03-08-2022 20:15-0400 Body temperature 97.6 [degF] [facility] Work Phone: 03-08-2022 20:15-0400 Diastolic blood pressure 62 mm[Hg] [facility] Work Phone: 03-08-2022 20:15-0400 Heart rate 78 /min [facility] Work Phone: 03-08-2022 20:15-0400 Respiratory rate 16 /min [facility] Work Phone: 03-08-2022 20:15-0400 SaO2% (BldA) [Mass fraction] 98 % [facility] Work Phone: 03-08-2022 20:15-0400 Systolic blood pressure 103 mm[Hg] [facility] Work Phone: 03-07-2022 07:22-0400 Body height 162.56 cm [facility] Work Phone: 03-07-2022 07:22-0400 Body mass index (BMI) [Ratio] 32.5 kg/m2 [facility] Work Phone: 03-07-2022 07:22-0400 Body weight 86.2 kg [facility] Work Phone: 03-03-2022 14:34-0400 Body weight 83.92 kg Valeriano Barron MD Work Phone: [facility] 03-03-2022 14:34-0400 Diastolic blood pressure 60 mm[Hg] Valeriano Barron MD Work Phone: [facility] 03-03-2022 14:34-0400 Systolic blood pressure 104 mm[Hg] Valeriano Barron MD Work Phone: [facility] 02-16-2022 13:40-0400 Body weight 81.92 kg Alisha Plotjose l BOAT PERSON.CNM Work Phone: [facility] 02-16-2022 13:40-0400 Diastolic blood pressure 67 mm[Hg] Alisha Plotts BOAT PERSON.CNM Work Phone: [facility] 02-16-2022 13:40-0400 Systolic blood pressure 108 mm[Hg] Alisha Plotts BOAT PERSON.CNM Work Phone: [facility] 02-07-2022 13:37-0400 Body weight 80.29 kg Clem Garcia MD Work Phone: [facility] 02-07-2022 13:37-0400 Diastolic blood pressure 54 mm[Hg] Clem Garcia MD Work Phone: [facility] 02-07-2022 13:37-0400 Systolic blood pressure 96 mm[Hg] Clem Garcia MD Work Phone: [facility] 01-16-2022 19:16-0400 Body height 162.56 cm [facility] Work Phone: 01-16-2022 19:16-0400 Body mass index (BMI) [Ratio] 29.7 kg/m2 [facility] Work Phone: 01-16-2022 19:16-0400 Body temperature 97.7 [degF] [facility] Work Phone: 01-16-2022 19:16-0400 Body weight 78.47 kg [facility] Work Phone: 01-16-2022 19:16-0400 Diastolic blood pressure 60 mm[Hg] [facility] Work Phone: 01-16-2022 19:16-0400 Heart rate 94 /min [facility] Work Phone: 01-16-2022 19:16-0400 Respiratory rate 18 /min [facility] Work Phone: 01-16-2022 19:16-0400 SaO2% (BldA) [Mass fraction] 99 % [facility] Work Phone: 01-16-2022 19:16-0400 Systolic blood pressure 100 mm[Hg] [facility] Work Phone: 01-05-2022 14:35-0400 Body weight 77.56 kg Quynh Villela MD Work Phone: [facility] 01-05-2022 14:35-0400 Diastolic blood pressure 58 mm[Hg] Quynh Villela MD Work Phone: [facility] 01-05-2022 14:35-0400 Systolic blood pressure 98 mm[Hg] Quynh Villela MD Work Phone: [facility] 12-08-2021 14:42-0400 Body weight 76.3 kg Clem Garcia MD Work Phone: [facility] 12-08-2021 14:42-0400 Diastolic blood pressure 50 mm[Hg] Clem Garcia MD Work Phone: [facility] 12-08-2021 14:42-0400 Systolic blood pressure 94 mm[Hg] Clem Garcia MD Work Phone: [facility] 10-06-2021 10:35-0400 Body weight 68.67 kg Clem Garcia MD Work Phone: [facility] 10-06-2021 10:35-0400 Diastolic blood pressure 50 mm[Hg] Clem Garcia MD Work Phone: [facility] 10-06-2021 10:35-0400 Systolic blood pressure 92 mm[Hg] Clem Garcia MD Work Phone: [facility] 09-02-2021 15:37-0400 Body weight 66.68 kg Gogo Espinoza MD Work Phone: [facility] 09-02-2021 15:37-0400 Diastolic blood pressure 60 mm[Hg] Gogo Espinoza MD Work Phone: [facility] 09-02-2021 15:37-0400 Systolic blood pressure 100 mm[Hg] Gogo Espinoza MD Work Phone: [facility] Encounters Encounter Date Encounter Type Care Provider Facility Start: 12-16-2024 End: 12-16-2024 ambulatory LANNY PERDOMO Facility:[facility] Start: 12-16-2024 End: 12-16-2024 Patient encounter procedure Valeriano Barron MD Work Phone: OB/Gynecology Comment on above: Supervision of high risk in second trimester (HCC) (Primary Dx); History of shoulder dystocia in prior ; AMA (advanced maternal age) multigravida 35+, second trimester (HCC); 15 weeks gestation of ([facility]) Encounter for antena tristan screening for malformation using ultrasound ([facility]) (Primary Dx); Multigravida of advanced maternal age in first trimester (HCC); 15 weeks gestation of ([facility]) Start: 12-16-2024 End: 12-16-2024 ambulatory VALERIANO BARRON Facility:[facility] Start: 11-20-2024 End: 11-20-2024 ambulatory LANNY PERDOMO Facility:[facility] Start: 11-20-2024 End: 11-20-2024 Patient encounter procedure Lanny Perdomo APRN.PLANT ECOLOGIST Work Phone: OB/Gynecology Comment on above: Encounter for superv ision of high risk in first trimester, antepartum (HCC) (Primary Dx); 12 weeks gestation of (HCC); with uncertain dates in second trimester (HCC); Screen for STD (sexually transmitted disease); with uncertain dates, antepartum (HCC); History of shoulder dystocia in prior ; Multigravida of advanced maternal age in first trimester (HCC); Nausea and vomiting during (HCC) Start: 11-20-2024 End: 11-20-2024 ambulatory LANNY PERDOMO Facility:[facility] Start: 10-08-2024 End: 10-08-2024 ambulatory DAVON STAFFORD Facility:[facility] Start: 02-26-2024 Encounter for genera l adult medical examination without abnormal findings Clemencia Garcia NP [facility] Start: 02-04-2024 End: 02-04-2024 ambulatory Clemencia Garcia NP Facility:[facility] Start: 01-18-2023 End: 01-18-2023 ambulatory [facility] Work Phone: Start: 01-18-2023 End: 01-18-2023 Patient encounter procedure [facility] Work Phone: Start: 03-10-2022 ambulatory Alisha palomino APRN.CNM Work Phone: OB/Gynecology Comment on above: Post delivery incont inence? Start: 03-07-2022 End: 03-08-2022 Evaluation and management of inpatient [facility] Start: 03-03-2022 End: 03-03-2022 Patient encounter procedure Valeriano Barron MD Work Phone: OB/Gynecology Comment on above: AMA (advanced matern al age) primigravida 35+, third trimester (Primary Dx); History of shoulder dystocia in prior ; 38 weeks gestation of Start: 02-16-2022 End: 02-16-2022 Patient encounter procedure Alisha Mayberry BIANCAM Work Phone: OB/Gynecology Comment on above: 36 weeks gestation o f (Primary Dx); Multigravida of advanced maternal age in first trimester; History of shoulder dystocia in prior Start: 02-07-2022 End: 02-07-2022 Patient encounter procedure Clem Garcia MD Work Phone: OB/Gynecology Comment on above: AMA (advanced matern al age) multigravida 35+, third trimester (Primary Dx); 35 weeks gestation of Multigravida of adva nced maternal age in third trimester (Primary Dx); 35 weeks gestation of Start: 01-16-2022 End: 01-16-2022 ambulatory [facility] Work Phone: Start: 01-16-2022 End: 01-16-2022 Patient encounter procedure [facility] Start: 01-05-2022 End: 01-05-2022 Patient encounter procedure Quynh Villela MD Work Phone: OB/Gynecology Comment on above: AMA (advanced matern al age) multigravida 35+, third trimester (Primary Dx); Varicose veins of both lower extremities during ; Supervision of high risk in third trimester; History of macrosomia in in prior , currently in third trimester; 30 weeks gestation of Start: 12-08-2021 End: 12-08-2021 Patient encounter procedure Clem Garcia MD Work Phone: OB/Gynecology Comment on above: Antepartum multigrav hai of advanced maternal age (Primary Dx); 26 weeks gestation of Start: 11-03-2021 Telephone encounter Clem maloney MD Work Phone: OB/Gynecology Comment on above: Lab Orders Start: 10-13-2021 End: 10-13-2021 Patient encounter procedure Reena Guy MD Work Phone: Maternal Medicine Comment on above: Encounter for anatomic survey (Primary Dx); Multigravida of advanced maternal age in second trimester; 18 weeks gestation of Start: 10-06-2021 End: 10-06-2021 Patient encounter procedure Clem Garcia MD Work Phone: OB/Gynecology Comment on above: Supervision of high risk in second trimester (Primary Dx); 17 weeks gestation of ; Varicose veins of both lower extremities during Start: 09-09-2021 Telephone encounter Angel alarcon MD Work Phone: Maternal Medicine Comment on above: NIPT results Start: 09-02-2021 End: 09-02-2021 Patient encounter procedure Gogo Espinoza MD Work Phone: OB/Gynecology Comment on above: 12 weeks gestation o f (Primary Dx); Antepartum multigravida of advanced maternal age; Supervision of high risk in third trimester Start: 02-21-2019 Patient encounter status [facility] Procedures Date Procedure Procedure Detail Performing Clinician Start: 12-16-2024 Us preg uterus after 1st trimest 05/21 gestation Lanny Perdomo APRN.PLANT ECOLOGIST Work Phone: Start: 11-20-2024 Antibody screen LANNY DYER Comment on above: Order Comment: Speci men Type: BLOOD SPECIMEN Ordering Facility: [facility] Address: [address] [place] [address] Performed By: #### 5 [id number] #### [facility] [id number] [address] [place] [address] [place] Start: 03-03-2022 URINE OB DIP B/O Mani Barron MD Work Phone: Start: 02-16-2022 URINE OB DIP B/O Soy Mayberry APRN.CNM Work Phone: Start: 02-07-2022 URINE OB DIP B/O Clem Garcia MD Work Phone: Start: 01-05-2022 URINE OB DIP B/O Quynh Villela MD Work Phone: Start: 12-08-2021 URINE OB DIP B/O Clem Garcia MD Work Phone: Start: 10-06-2021 URINE OB DIP B/O Clem Garcia MD Work Phone: Viral antigen assay Plan of Treatment Date Care Activity Detail Author Start: 01-06-2032 Urine microalbumin profile [facility] Start: 11-20-2029 Screening for malign ant neoplasm of cervix Cervical Cancer Screening [facility] Start: 04-09-2025 RSV Vaccine (1 - Ris k 1-dose series) RSV Vaccine (1 - Risk 1-dose series) [facility] Start: 01-23-2025 End: 01-23-2025 Patient encounter procedure [facility] Comment on above: Anatomy/OB Start: 01-19-2025 Influenza vaccination Influenza Vacc ine (#1) [facility] Start: 12-24-2024 End: 12-24-2024 Patient encounter procedure 12/24/2024 10:00 AM EDT Routine Office Visit OB/Gynecology [address] [place], [place] [id number] Faby Root MD [address] [place] [id number] OB/Gynecology Comment on above: Start: 12-16-2024 End: 12-16-2024 Patient encounter procedure [facility] Comment on above: early anatomy OB Start: 11-20-2024 End: 02-19-2025 ANEMIA REFLEX PANEL [facility] Work Phone: Comment on above: Expected: 11/20/2024 , Expires: 02/19/2025 Start: 11-20-2024 End: 02-19-2025 Chromosome 21 trisomy [Presence] in Blood or Tissue by Cytogenetics [facility] Comment on above: Expected: 11/20/2024 , Expires: 02/19/2025 Start: 11-20-2024 End: 02-19-2025 Hepatitis B virus surface Ag [Presence] in Serum [facility] Comment on above: Expected: 11/20/2024 , Expires: 02/19/2025 Start: 11-20-2024 End: 02-19-2025 Hepatitis C virus Ab [Presence] in Serum [facility] Comment on above: Expected: 11/20/2024 , Expires: 02/19/2025 Start: 11-20-2024 End: 02-19-2025 HIV 1+2 Ab [Presence] in Serum or Plasma by Immunoassay [facility] Comment on above: Expected: 11/20/2024 , Expires: 02/19/2025 Start: 11-20-2024 End: 11-20-2025 OBSTETRIC ULTRASOUND I [facility] Comment on above: Expected: 11/20/2024 , Expires: 11/20/2025 Start: 11-20-2024 End: 02-19-2025 RUBELLA IGG ANTIBODY [facility] Comment on above: Expected: 11/20/2024 , Expires: 02/19/2025 Start: 11-20-2024 End: 02-19-2025 SYPHILIS TREPONEMAL W/REFLEX [facility] Comment on above: Expected: 11/20/2024 , Expires: 02/19/2025 Start: 01-20-2024 Covid-19 Vaccine () Covid-19 Vaccine () [facility] Start: 11-19-2022 Urine microalbumin profile DTAP,TDAP,TD (2 - Td or Tdap) [facility] Start: 10-03-2022 HPV TESTING HPV TESTING [facility] Start: 10-03-2022 PAP TESTING PAP TESTING [facility] Start: 10-03-2022 Screening for malign ant neoplasm of cervix Cervical Cancer Screening [facility] Start: 03-08-2022 Patient discharge [facility] Work Phone: Start: 03-07-2022 Administration of medication [facility] Work Phone: Start: 03-07-2022 Application of ice collar, cap or bag [facility] Work Phone: Start: 03-07-2022 Catheterization of vein [facility] Work Phone: Start: 03-07-2022 Introduction of urin pennie catheter [facility] Work Phone: Start: 03-07-2022 Measuring intake and output [facility] Work Phone: Start: 03-07-2022 Notification of physician [facility] Work Phone: Start: 03-07-2022 Procedure discontinued [facility] Work Phone: Start: 03-07-2022 Provision of activit y privileges [facility] Work Phone: Start: 03-07-2022 Vital signs measurements [facility] Work Phone: Start: 03-07-2022 [facility] Work Phone: Start: 03-07-2022 Admission procedure [facility] Work Phone: Start: 01-19-2022 Influenza vaccination [facility] Start: 10-06-2021 End: 12-06-2021 ALPHA FETOPRO MATERNAL ALPHA FETOPRO MATERNAL Lab Routine Supervision of high risk in second trimester 17 weeks gestation of Expected: 10/06/2021, Expires: 12/06/2021 [facility] Work Phone: Comment on above: Expected: 10/06/2021 , Expires: 12/06/2021 Start: 10-06-2021 End: 12-06-2021 CBC W Auto Differential panel - Blood CBC + DIFF Lab Routine Supervision of high risk in second trimester Expected: 10/06/2021, Expires: 12/06/2021 [facility] Work Phone: Comment on above: Expected: 10/06/2021 , Expires: 12/06/2021 Start: 10-06-2021 End: 12-06-2021 GEST GLUC SCREEN, 1-HR, 50 GM, NON-FASTING GEST GLUC SCREEN, 1-HR, 50 GM, NON-FASTING Lab Routine Supervision of high risk in second trimester Expected: 10/06/2021, Expires: 12/06/2021 [facility] Work Phone: Comment on above: Expected: 10/06/2021 , Expires: 12/06/2021 Start: 10-06-2021 End: 12-06-2021 SYPHILIS TOTAL W/REFLEX SYPHILIS TOTAL W/REFLEX Lab Routine Supervision of high risk in second trimester Expected: 10/06/2021, Expires: 12/06/2021 [facility] Work Phone: Comment on above: Expected: 10/06/2021 , Expires: 12/06/2021 Start: 05-21-2021 DEPRESSION ASSESSMENT DEPRESSION ASS ESSMENT [facility] Start: 2020 Mammography MAMMOGRAM [facility] Start: 2020 Screening for malign ant neoplasm of breast Mammogram Screening [facility] Start: 11-07-1999 Hepatitis B Vaccine (1 of 3 - 19+ 3-dose series) Hepatitis B Vaccine (1 of 3 - 19+ 3-dose series) [facility] Start: 1998 Anxiety Screening Anxiety Screening [facility] Start: 1998 Depression Screening Depression Scre ening [facility] Start: 1992 Adult depression screening assessment DEPRESSION SCREENING [facility] Start: 1985 COVID-19 VACCINE (#1) COVID-19 VACCI NE (#1) [facility] Start: 1985 COVID-19 VACCINE (1) COVID-19 VACCIN E (1) [facility] Start: 05-08-1981 COVID-19 VACCINE (#1) COVID-19 VACCI NE (#1) [facility] Start: 1980 HEPATITIS B (1 of 3 - 3-dose series) HEPATITIS B (1 of 3 - 3-dose series) [facility] Bacteria identified in Urine by Culture BACTERIAL CULTURE, URINE Microbiology Routine with uncertain dates in second trimester ([facility]) 11/20/2024 2:35 PM EDT [facility] Chlamydia trachomatis+Neisseria gonorrhoeae DNA [Presence] in Unspecified specimen by RADHA with probe detection GONORRHEA/CHLAMYDIA NAAT Lab Routine with uncertain dates in second trimester ([facility]) 11/20/2024 2:35 PM EDT [facility] End: 03-17-2022 nonstress test NON-STRESS TEST Procedures Routine AMA (advanced maternal age) multigravida 35+, third trimester Once per week for 4 Occurrences starting 02/07/2022 until 03/17/2022 [facility] Work Phone: Comment on above: Once per week for 4 Occurrences starting 02/07/2022 until 03/17/2022 OBSTETRIC ULTRASOUND WHI OBSTETR IC ULTRASOUND WHI Anc Imaging Routine 12 weeks gestation of Antepartum multigravida of advanced maternal age Supervision of high risk in third trimester 1 Occurrences starting 09/02/2021 [facility] Work Phone: Comment on above: 1 Occurrences starti ng 09/02/2021 OBSTETRIC ULTRASOUND WHI OBSTETR IC ULTRASOUND WHI Anc Imaging Routine 30 weeks gestation of Supervision of high risk in third trimester AMA (advanced maternal age) multigravida 35+, third trimester History of macrosomia in in prior , currently in third trimester Ordered: 01/05/2022 [facility] Work Phone: Comment on above: Ordered: 01/05/2022 PAP TEST PAP TEST Lab Rou wendy with uncertain dates in second trimester (HCC) 11/20/2024 2:35 PM EDT [facility] Patient referral [facility] Work Phone: POC ANESTHESIOLOGIST PHYSICIAN ULTRASOUND POC ANESTHESIOLOGIST PHYSICIAN ULTRASO UND Anc Imaging Routine with uncertain dates, antepartum (HCC) Ordered: 11/20/2024 [facility] Comment on above: Ordered: 11/20/2024 ROUTINE, GR OUP B STREP PCR ROUTINE, GROUP B STREP PCR Microbiology Routine 36 weeks gestation of 02/16/2022 2:05 PM EDT [facility] Work Phone: TRICHOMONAS VAGINALI S NAAT TRICHOMONAS VAGINALIS NAAT Lab Routine Screen for STD (sexually transmitted disease) 11/20/2024 2:35 PM EDT [facility] URINE OB DIP B/O URINE OB DIP B/ O Lab Routine 12 weeks gestation of Ordered: 09/02/2021 [facility] Work Phone: Comment on above: Ordered: 09/02/2021 [facility] Immunizations Immunization Date Immunization Notes Care Provider Fa frank 01-05-2022 tetanus toxoid, redu david diphtheria toxoid, and acellular pertussis vaccine, adsorbed Quynh Neyhart Villela MD Work Phone: [facility] 08-01-2019 influenza, injectabl e, quadrivalent, contains preservative Gogo Espinoza MD Work Phone: [facility] 08-01-2019 influenza virus vaccine, unspecified formulation Lanny Talleyclark ZENG Work Phone: [facility] 05-07-2018 influenza virus vaccine, unspecified formulation Valeriano Barron MD Work Phone: [facility] 06-06-2013 influenza virus vaccine, unspecified formulation Gogo Espinoza MD Work Phone: [facility] 11-19-2012 tetanus toxoid, redu david diphtheria toxoid, and acellular pertussis vaccine, adsorbed Gogo Espinoza MD Work Phone: [facility] 05-10-2006 influenza virus vaccine, unspecified formulation Gogo Espinoza MD Work Phone: [facility] Work Phone: 03-21-2006 influenza virus vaccine, unspecified formulation Gogo Espinoza MD Work Phone: [facility] Payers Date Payer Category Payer Self-pay [id number] 2019 Private Health Insurance O [employer] PPO [id number] 2019 Unknown MMO MMO [employer] [id number] 2019-Present [phone] [address] [place] [address] PPO [id number] 2019 Unknown MMO MMO [employer] [id number] 2019-Present [phone] [address] [place] [address] PPO [id number] 2019 Unknown [id number] Private Health Insurance [place] [id number] Unknown [facility] [id number] Unknown [id number] Social History Date Type Detail Facility Start: 02-20-2011 End: 02-07-2022 Tobacco smoking status NHIS Never smoked tobacco [facility] Start: 09-02-2021 End: 12-16-2024 Alcohol intake Current non-drinker of alcohol (finding) [facility] Start: 08-11-2021 Education 21 [facility] Start: 06-20-2021 [facility] Start: 1980 Sex Assigned At Female [facility] Start: 08-23-2021 End: 03-03-2022 Exposure to SARS-CoV-2 (event) Not sure [facility] Work Phone: Start: 02-20-2011 End: 02-07-2022 Tobacco use and exposure Smokeless tobacco non-user [facility] Start: 02-11-2020 End: 03-07-2022 Tobacco smoking status NHIS Unknown if ever smoked [facility] Start: 02-11-2020 None [facility] Start: 11-20-2024 History of Social function [facility] Start: 11-20-2024 Tobacco use panel [facility] Adult Depression Screening Assessment 0 [facility] Start: 08-04-2021 Gender identity Identifies as female gender (finding) [facility] Start: 08-04-2021 Sexual orientation Heterosexual (hanny hastings) [facility] Goals Date Patient Goal Desired Activity /State Personal health goal Functional Status Date Assessment Result Facility 12-13-2015 Are you deaf, or do you have serious difficulty hearing No 12/13/2015 1:36 PM EDT Almaz BerryRn)(Hist), RN No [facility] 12-13-2015 Are you blind, or do you have serious difficulty seeing, even when wearing glasses No 12/13/2015 1:36 PM EDT Almaz BerryRn)(Hist), RN No [facility] 12-13-2015 Do you have serious difficulty walking or climbing stairs No 12/13/2015 1:36 PM EDT Almaz BerryRn)(Hist), RN No [facility] 12-13-2015 Do you have difficul ty dressing or bathing No 12/13/2015 1:36 PM EDT Almaz BerryRn)(Hist), RN No [facility] 12-13-2015 Because of a physica l, mental, or emotional condition, do you have difficulty doing errands alone such as visiting a physician's office or shopping No 12/13/2015 1:36 PM EDT Almaz BerryRn)(Hist), RN No [facility] Mental Status Date Assessment Result Facility 12-13-2015 Because of a physica l, mental, or emotional condition, do you have serious difficulty concentrating, remembering, or making decisions No 12/13/2015 1:36 PM EDT Almaz Berry)(Hist), RN No [facility] Clinical Notes 12-12-2019 to 12-16-2024 Quick Notes - Valeriano Barron MD - 12/16/2024 9:02 AM EDTPrenatal Quick Notes - Valeriano Barron MD - 12/16/2024 9:02 AM EDTPatient InstructionsPatient InstructionsPatient Instructions Note Date & Type Note Facility 12-16-2024 Progress note Formatting of t his note might be different from the original. RR- VB No. LOF No. CTXS No. Movement: absent. Other c/o: No. Medication list reviewed. SENSITIVE EXAM: Sensitive exam not performed. Physical Exam See Flow Sheet Gen: no accute distress, well appearing A/P 15w5d Estimated Date of Delivery: 06/04/25 Assessment & Plan History of shoulder dystocia in prior plans vaginal delivery AMA (advanced maternal age) multigravida 35+, second trimester ([facility]) NIPT done and low risk XX 15 weeks gestation of ([facility]) Supervision of high risk in second trimester ([facility]) Cont. asa. Valeriano Barron M.D. [facility] 12-16-2024 Miscellaneous Notes RR- VB No. LOF No. CTXS No. Movement: absent. Other c/o: No. Medication list reviewed. SENSITIVE EXAM: Sensitive exam not performed. Physical Exam See Flow Sheet Gen: no accute distress, well appearing A/P 15w5d Estimated Date of Delivery: 06/04/25 Assessment & Plan History of shoulder dystocia in prior plans vaginal delivery AMA (advanced maternal age) multigravida 35+, second trimester ([facility]) NIPT done and low risk XX 15 weeks gestation of ([facility]) Supervision of high risk in second trimester ([facility]) Cont. asa. Valeriano Barron M.D. documented in this encounter [facility] 12-16-2024 Instructions Safia Torres MA - 12/16/2024 8:13 AM EDT SEQUENTIAL SCREENINGS The [facility] offers sequential screenings for women who are interested in screenings for chromosomal abnormalities and certain defects during a . The sequential screen combines ultrasound and blood tests to determine the risk of chromosomal abnormalities, including Down's Syndrome (Trisomy 21) and Trisomy 18, as well as open neural tube defects including spina bifida. Ultrasound examination is performed between 11 weeks and 13 weeks gestational age. Blood tests are drawn after the ultrasound and again later in the between 15 and 21 weeks gestational age. Please let your physician know if you are interested in this testing. It will require an appointment with our sound technician. This is not an ultrasound performed by a physician in our office during a routine visit. SIGNS AND SYMPTOMS OF LABOR 1. Contractions every 10 minutes or more often 2. Clear, pink, or brownish fluid (water) leaking from vagina 3. Feeling that baby is pushing down, pressure 4. Low, dull backache 5. Cramps that feel like a period 6. Cramps with or without diarrhea If you notice any of the above symptoms, contact our office at [phone] and ask to speak with a nurse. After hours, you can call doctors registry at [phone] OR call [facility] at [phone] and ask to have the doctor carbon cleaner paged. If you consider this an emergency, dial [phone] or go to your nearest emergency department. NEED HELP? Are you dealing with a violent or abusive relationship? Are you a victim of rape or sexual assult? Call [facility] ([place]) 24 hour Crisis Hotline: 818.745.6947 or 576-401-6003. MANUAL Your Guide to a Healthy manual is now on-line. Visit [email or web address] to download your free copy documented in this encounter [facility] 11-20-2024 Instructions Lanny Perdomo APRN.PLANT ECOLOGIST - 11/20/2024 1:13 PM EDT Please select the following link to access the [facility] Your Guide to a Healthy . [email or web address] de MORNING SICKNESS IN by Leighann Schroeder M.D. for [employer] As you may already know, morning sickness can often be more appropriately called evening sickness or npvye-pouazy-pe-the-day sickness. While there are the arturo few, most women (50-90%) experience some degree of nausea, some have vomiting, and a few develop a severe form of vomiting during called hyperemesis gravidarum. What causes the nausea and vomiting of ? We can't explain why some people feel fine and others are green for months. Even the same woman may feel vastly different in each . There is some relationship between nausea and the level of the hormone hCG. In twin pregnancies, and in other situations where the hCG is greater than expected, nausea and vomiting tend to be worse. In a destined for miscarriage, hCG levels tend to be low, and nausea is often less severe. This being said, a lack of nausea doesn't guarantee that the is destined for miscarriage. The fact that nausea and vomiting are often signs of a healthy can offer a silver lining in the dark cloud of miserable nausea. How long will the nausea last? Fortunately, for most women, nausea and vomiting are a first trimester event, peaking at week 9-10 and waning by week 14-16. When you are feeling bad the weeks can go by slowly but most moms do feel tremendously better by the middle of the . Whether morning sickness is a brief experience or lasts through most of the , there are treatments that can make the weeks or months more tolerable. What can you do about it? Diet: See what works for you. Try eating bland dry foods, and avoid fatty or spicy foods. It is okay to eat a less than perfectly balanced diet in the first trimester. Have your liquids separately from dry foods. Try sports drinks, water, clear juices, Wang-aid, or non-caffeinated tea. Avoid carbonated beverages that fill up your stomach. Try eating lots of little meals. If you tend to feel sick when you first wake up, leave crackers next to the bed for a quick snack before rising. Keeping healthy snacks with you all day to nibble when you feel queasy can sometimes even prevent nausea from starting. vitamins and nausea: Pre-yusuf vitamins can sometimes worsen nausea in . While folate is necessary, especially early in the , it comes as a smaller pill that many people find more tolerable than the complete vitamin pill. Ask your practitioner if it is okay to temporarily replace vitamins and iron with just a folate pill if you find a significant worsening in the level of your nausea from the vitamins. Alternative therapies: Acupressure may be used to treat nausea in , and is not known to have any risks for the fetus. Wristbands (marketed for seasickness) that put pressure on an acupressure point at the wrist are often available at drugstores or travel stores. Geoffrey root is used for nausea in many traditional cultures. Some women take fresh grated geoffrey or geoffrey tablets. It is possible that the pill form contains other ingredients or contaminants, so you may want to try fresh geoffrey first. Medications: Emetrol is the only nausea medication approved for use in . It is available over the counter and is soothing to the stomach. A prescription medication called Bendectin was available in the -1979's and was shown to be safe in , but the company stopped marketing it in the [place] due to the costs of liability coverage. Bendectin contained 10 milligrams of vitamin B6 and 10 milligrams of Doxylamine. Two tablets were given at bedtime and a total of up to 4 tablets could be used in a 24-hour period. Interestingly, Unisom , which contains a higher dose (25 mg.) of the same medication, Doxylamine, is currently marketed as an iaja-rbs-cppwccp sleeping pill. Ask your practitioner if creating a vitamin B6/Doxylamine combination with kayk-lzs-nglulro medications would be safe for you. Prescription medications like Compazine and Phenergan can be used if the benefits outweigh possible risks, but these have not been clearly shown to be safe in . Zofran , an expensive anti-nausea medication often used to treat nausea from chemotherapy, can also be used. Can I throw up so much it harms the baby? The act of vomiting cannot hurt your fetus, which is protected inside the uterus. If you get dehydrated or develop a metabolic imbalance, this can be unhealthy. As long as you can keep down liquids, you and your baby will generally do all right. Eat when you feel able. If you are unable to keep anything down, or if you notice potential signs of dehydration such as lightheadedness, or concentrated and/or infrequent urination, call your practitioner. Some women need brief hospital admission for intravenous fluids and anti-nausea medications if their condition becomes severe. This severe form of nausea and vomiting is called Hyperemesis Gravidarum. As with many symptoms of , remind yourself that this, too, shall pass, and you'll have a wonderful baby to show for it! TREATMENT OPTIONS, SHORT VERSION: Frequent small meals Hydrate throughout day [employer] wrist pressure point applicators Geoffrey root (powdered, in capsules) 250mg four times a day Vitamin B6 25 mg tablet three times a day Also may be taken with half a tablet of Unisom three times a day (Doxylamine 12.5 mg) If severe (weight loss, dehydration), call us and come in for IV hydration and possible medication in the form of injections. Prescription medications such as Phenergan, Compazine, Reglan documented in this encounter [facility] 11-20-2024 Note HNO ID: [id number] Author: LANNY PERDOMO APRN.PLANT ECOLOGIST Service: ? Author Type: Nurse Practitioner Type: Progress Notes Filed: 11/20/2024 14:47 Note Text: INITIAL OB ASSESSMENT HPI: Connie is a 44 year old White Female here to establish Obstetrical Care. Patient's last menstrual period was 08/28/2024 (exact date). from OB Dating Form. was planned Complaints: No OB History [id number] Para8 Term8 Preterm0 AB2 Living8 SAB2 IAB0 Ectopic0 Multiple0 Live Births8 Comment: 35 min 2nd stage had swelling of left leg and hand related to epidural, was shut off during labor, patient feels that she had a bad experience Previous history: Prior : No History of 4th degree laceration: No History of shoulder dystocia: No History of Hypertensive disorders including pre-eclampsia or gestational hypertension: No History of gestational diabetes: No Patient's Risk Screening for delivery: Have you had a prior ruiz between 20w and 36w6d? No How many pregnancies have you had before? 9 Did you have a previous baby with a GBS Infection? No Please select all that apply for any prior : N/A MEDICAL/PSYCHOSOCIAL HISTORY: History of hemorrhage or bleeding concerns: No Thyroid Disease: No History of chronic hypertension: No History of pre-existing diabetes: No ABO/RH(D) Date Value Ref Range Status 09/16/2019 A POSITIVE Final BMI 27.81 kg/(m2) Last Pap: 10/03/2017, normal History of abnormal pap: No Prior treatment for cervical dysplasia: none. Last HPV: 10/03/2017, negative History of STDs: N/A Partner History of STDs: None Did you have a partner with Herpes? No Tobacco use: No E-Cigarette/Vaping Use: No Caffeine use: No Drug use: No Alcohol use: No Multivitamin with Folic acid: Yes Would refuse blood transfusion if medically necessary: No Social Needs: How often does this describe you? I don't have enough money to pay my bills: Never Within the past 12 months, have you worried that your food would run out before you had money to buy more? Never In the past 12 months, has lack of reliable transportation kept you from going to medical appointments or work, or from getting things needed for daily living? Never In the past 12 months, have you had any concerns about having a place to live, or about the condition or quality of your housing? Never Would you like more information on any of the following (please check all that apply)? Not interested Social History: Do you have any history of depression, anxiety, PTSD, or other mood problems? No Do you have a history of abuse or trauma that may impact your experience? No Are you currently employed? No Depression/Anxiety Screening: denies symptoms of depression. OB Depression and Anxiety Screening- This Encounter Feeling down, depressed, or hopeless: Not at all Little interest or pleasure in doing things: Not at all Feeling nervous, anxious, or on edge Not at all Not being able to stop or control worrying Not at all Anxiety Pre-Screening Total (If >/= 3 additional questions will be reviewed) 0 Genetic Screening: Partner present: No Patient verbalized knowledge of partner family health history: Yes Do you or your partner have any personal or family history of defects not previously discussed: No Do you have history of a complicated by anomaly, genetic condition, or demise: No Preeclampsia Risk Screening: Screening for prevention of preeclampsia: High risk factors: None Moderate risk ractors: Age 35 years or older OB Risk Screening: Completed, positive findings include: Patient will be less than 17 or greater than 34 at the time of Delivery Marital Status: Partner: Name: Gavin Age: 43 Occupation: Resource Director Gender: Male PAST MEDICAL HISTORY Diagnosis Date Anemia during in third trimester ([facility]) 12/12/2019 H/O shoulder dystocia in prior , currently ([facility]) 2017 IBS (irritable bowel syndrome) Nephrolithiasis Only noted during pregnancies Other forms of migraine Port wine stain PAST SURGICAL HISTORY Procedure Laterality Date DILATION AND CURETTAGE DXAND/THER NONOBSTETRIC 05/09/2005 Dilation AND curettage EXCIS UTERINE FIBROID,VAG APPRCH 2004 Miscarriage, 9 weeks aprox PAST SURGICAL HISTORY OF 05/21/1995 laser surgery to R Arm birthmark TOOTH EXTRACTION 05/29/2005 wisdom teeth removal Current Outpatient Medications Medication Sig Dispense Refill aspirin 81 mg cap Take 81 mg by mouth once daily. Magnesium 250 mg tab Take 250 mg by mouth. PNV NO.122/IRON/FOLIC ACID ( MULTI ORAL) Take by mouth. No current facility-administered medications for this visit. Allergies As of Date: 11/20/2024 (No Known Allergies) Fully Assessed 11/20/2024 Does patient have penicillin allergy: No REVIEW OF SYSTEMS: GENERA (more content not included)... [facility] 11-20-2024 History of Presen t illness Narrative INITIAL OB ASSESSMENT HPI: Connie is a 44 year old White Female here to establish Obstetrical Care. Patient's last menstrual period was 08/28/2024 (exact date). from OB Dating Form. was planned Complaints: No OB History [id number] Para8 Term8 Preterm0 AB2 Living8 SAB2 IAB0 Ectopic0 Multiple0 Live Births8 Comment: 35 min 2nd stage had swelling of left leg and hand related to epidural, was shut off during labor, patient feels that she had a bad experience Previous history: Prior : No History of 4th degree laceration: No History of shoulder dystocia: No History of Hypertensive disorders including pre-eclampsia or gestational hypertension: No History of gestational diabetes: No Patient's Risk Screening for delivery: Have you had a prior ruiz between 20w and 36w6d? No How many pregnancies have you had before? 9 Did you have a previous baby with a GBS Infection? No Please select all that apply for any prior : N/A MEDICAL/PSYCHOSOCIAL HISTORY: History of hemorrhage or bleeding concerns: No Thyroid Disease: No History of chronic hypertension: No History of pre-existing diabetes: No ABO/RH(D) Date Value Ref Range Status 09/16/2019 A POSITIVE Final BMI 27.81 kg/(m^2) Last Pap: 10/03/2017, normal History of abnormal pap: No Prior treatment for cervical dysplasia: none. Last HPV: 10/03/2017, negative History of STDs: N/A Partner History of STDs: None Did you have a partner with Herpes? No Tobacco use: No E-Cigarette/Vaping Use: No Caffeine use: No Drug use: No Alcohol use: No Multivitamin with Folic acid: Yes Would refuse blood transfusion if medically necessary: No Social Needs: How often does this describe you? I don't have enough money to pay my bills: Never Within the past 12 months, have you worried that your food would run out before you had money to buy more? Never In the past 12 months, has lack of reliable transportation kept you from going to medical appointments or work, or from getting things needed for daily living? Never In the past 12 months, have you had any concerns about having a place to live, or about the condition or quality of your housing? Never Would you like more information on any of the following (please check all that apply)? Not interested Social History: Do you have any history of depression, anxiety, PTSD, or other mood problems? No Do you have a history of abuse or trauma that may impact your experience? No Are you currently employed? No Depression/Anxiety Screening: denies symptoms of depression. OB Depression and Anxiety Screening- This Encounter Feeling down, depressed, or hopeless: Not at all Little interest or pleasure in doing things: Not at all Feeling nervous, anxious, or on edge Not at all Not being able to stop or control worrying Not at all Anxiety Pre-Screening Total (If >/= 3 additional questions will be reviewed) 0 Genetic Screening: Partner present: No Patient verbalized knowledge of partner family health history: Yes Do you or your partner have any personal or family history of defects not previously discussed: No Do you have history of a complicated by anomaly, genetic condition, or demise: No Preeclampsia Risk Screening: Screening for prevention of preeclampsia: High risk factors: None Moderate risk ractors: Age 35 years or older OB Risk Screening: Completed, positive findings include: Patient will be less than 17 or greater than 34 at the time of Delivery Marital Status: Partner: Name: Gavin Age: 43 Occupation: Resource Director Gender: Male PAST MEDICAL HISTORY Diagnosis Date Anemia during in third trimester ([facility]) 12/12/2019 H/O shoulder dystocia in prior , currently ([facility]) 2017 IBS (irritable bowel syndrome) Nephrolithiasis Only noted during pregnancies Other forms of migraine Port wine stain PAST SURGICAL HISTORY Procedure Laterality Date DILATION & CURETTAGE DX&/THER NONOBSTETRIC 05/09/2005 Dilation & curettage EXCIS UTERINE FIBROID,VAG APPRCH 2004 Miscarriage, 9 weeks aprox PAST SURGICAL HISTORY OF 05/21/1995 laser surgery to R Arm birthmark TOOTH EXTRACTION 05/29/2005 wisdom teeth removal Current Outpatient Medications Medication Sig Dispense Refill aspirin 81 mg cap Take 81 mg by mouth once daily. Magnesium 250 mg tab Take 250 mg by mouth. PNV NO.122/IRON/FOLIC ACID ( MULTI ORAL) Take by mouth. No current facility-administered medications for this visit. Allergies As of Date: 11/20/2024 (No Known Allergies) Fully Assessed 11/20/2024 Does patient have penicillin allergy: No REVIEW OF SYSTEMS: GENERAL: Negative for: Fever or Chills HEENT: Negative for: Headache, Impaired Vision, Ringing in Ears, Nosebleeds NECK: Negative for: Swelling, Pain, Stiffness RESPIRATORY: Negative for: Cough, Shortness of breath, Wheezing GASTROINTESTINAL: Negative for: Heartburn, Constipation, Diarrhea, Blood in stool, + nausea MUSCULOSKELETAL: Negative for: Muscle or joint pain, stiffness, Joint swelling NEUROLOGIC/PSYCHIATRIC: Negative for: Weakness, Paralysis, Numbness, Tingling, Tremor, Anxiety, Depression, Memory loss SKIN: Negative for: Rash, Itching GENITOURINARY: Negative for: vaginal itching, vaginal discharge, hematuria or dysuria SENSITIVE EXAM: The sensitive examination was discussed with the Patient or Patient's Authorized Frame And Scrap Crusher. As applicable, any other physician, advance practice provider, medical student, or other health professional student that will be observing or involved in the sensitive examination for educational or training purposes was discussed with the Patient or Authorized Frame And Scrap Crusher. The Patient or Authorized Frame And Scrap Crusher has agreed to proceed with the sensitive examination. (Sensitive examination includes inspection and/or palpation of the breasts, pelvis, prostate and anorectal regions). PHYSICAL EXAM: BP 100/72 Ht 5' 4 (1.63m) Wt 162 lb (73.5kg) LMP 08/28/2024 BMI 27.79 kg/(m^2). GENERAL: pleasant in no apparent distress DERMATOLOGY: Normal, without lesions, non-icteric, and non-hirsute + port wine stain NECK: Supple, full range of motion, no adenopathy, and thyroid normal CHEST: Normal inspiratory effort BREAST: soft, non-tender, symmetric, no dominant mass, normal nipple-areolar complex, no lymphadenopathy, and no nipple discharge ABDOMEN: soft, non-tender, and no masses NEURO: alert and oriented x3,exam grossly non-focal PELVIS: External genitalia normal without lesions. Perineal body intact. No vaginal or cervical lesions. Cervix closed. Uterus 12 week size. No adnexal masses or tenderness. Clinical Pelvimetry: Pelvimetry clinically assessed as adequate Limited OB ultrasound exam: single intrauterine and positive cardiac activity ASSESSMENT: 44 year old at 12w0d wks gestational age PLAN: 1) Patient oriented to practice. Patient given new OB orientation folder. Discussed nutrition, folic acid supplementation, dietary guidelines, exercise, smoking, alcohol, caffeine, and drug use. Discussed gestational weight gain guidelines. Discussed routine OB labs including STD/HIV. Discussed how to access Your guide to a health and the Staff Psychologist. Discussed hemoglobin electrophoresis. Patient: Declines Reviewed midwifery and coil finisher services that are available. 2) Screening: Hemoglobin A1C: ordered Baby Aspirin: The patient has been counseled about the potential benefits of low dose aspirin in and our recommendation that this be offered to all patients, regardless of whether they meet the high risk criteria specified above. She Accepts Aneuploidy Screening: Discussed aneuploidy screening, nuchal translucency/first trimester early anatomy ultrasound and NIPT. The risks/benefits and limitations of NIPT/aneuploidy screening were reviewed including the potential for false negative and false positive results. The availability of genetic counseling was reviewed. Information on aneuploidy screening was provided. The patient chooses to proceed with First trimester early anatomy ultrasound (12-13w6d) and NIPT (10 weeks) Myriad Carrier Screening: Discussed myriad carrier screening. We discussed the availability of professional-society guided carrier screening and reviewed the conditions screened and limitations of screening. The availability of genetic counseling was reviewed. Information on carrier screening was provided. The patient Declines 3) Patient offered option of Virtual Visits. Patient unsure. May consider in future. ACTIVE PROBLEM LIST Encounter for Supervision of High Risk in First Trimester, Antepartum ([facility]) - 11/20/2024 Comment: Care Checklist Vaccines: [] Flu vaccine [] declined [] RSV vaccine 32 0/7 - 36 6/7 (Jan - Jun) [] declined [] COVID vaccine [] declined [] TDaP 27-36 [] declined First trimester: [x] Dating US [x] 1st tri labs [x] Pap smear [] Carrier screening [x] declined [x] NIPT screening [] declined [] First trimester anatomy scan [] declined [x] universal ASA ordered (start 12w-16w) [] declined [] M Power Consult [] not indicated [] declined Second trimester: [] Anatomy scan [] Mode of Delivery - [] Feeding - [] Pump ordered [] Diabetes screen [] CBC, RPR [] Behavioral Health Screening Third trimester (28-30 weeks): [] Consent [] Contraception [] Cytogeneticist, car seat, safe sleep [] TeamBirth handout Third trimester (36-40 weeks): [] GBS [] Presentation - [] Scheduled [] yes - Hibiclens, pre-op instructions, CBC, T&S ordered [] no [] H&P [] Preferences worksheet Nausea and Vomiting During ([facility]) - 11/20/2024 Comment: 11/20/24 Vitamin B6 doses reviewed. To notify if prescription is needed. Lanny Perdomo, BOAT PERSON.PLANT ECOLOGIST History of Macrosomia in Infant in Prior , Currently ([facility]) - 08/11/2021 Her baby's weight with baby that she delivered in 2018 was 9 pounds 6 ounces. TKRN History of Shoulder Dystocia in Prior - 08/05/2021 Comment: 08/05/21- Reports shoulder dystocia in 2018 with delivery of 6th child at [facility]. This was her largest baby 9 lbs 6oz [place] (Advanced Maternal Age) Multigravida 35+ (Hcc) - 05/19/2015 Comment: November 20, 2024 Age 44 at FLAKO. Growth every 4 weeks at 32 weeks, weekly NST at 36 weeks Lanny Perdomo APRN.LIVAN History of Precipitous Delivery - 05/19/2015 Migraines - 07/18/2013 Follow up in 4 weeks or sooner prn. Plan for 16 week early anatomy as there are no openings for NT by 12/03. Patient declines alternative locations. Lanny Perdomo APRN.PLANT ECOLOGIST documented in this encounter [facility] 10-08-2024 Note HNO ID: [id number] Author: DAVON STAFFORD APRN.PLANT ECOLOGIST Service: ? Author Type: Nurse Practitioner Type: Progress Notes Filed: 10/08/2024 09:36 Note Text: [facility] Subjective Connie Sanford is a 43 year old female. Patient presents with: Rash: Has poison alejandro, on eye and face. Patient is 6 weeks . Ear feels full also Rash Rash and Eye Swelling: - Rash and swelling began Sunday night, with progressive worsening. - Rash is located on the face, arms, and legs. - Swelling and itching around the eyes, more pronounced today than yesterday. - Using Benadryl with relief. - Suspects exposure from children's clothing; believes it may be poison sumac. - Family members, including an 8-year-old son, also have similar rashes. Review of Systems Skin: Positive for rash. Eyes: (-) periorbital edema, (+) itchy eyes, (-) visual disturbances Skin: (+) rash on arms/legs/face, (+) pruritus Objective BP 103/69 Pulse 86 Resp 16 Wt 75.7 kg (166 lb 12.5 oz) LMP 06/06/2021 (Exact Date) SpO2 100% BMI 28.63 kg/m? Physical Exam Vitals and nursing note reviewed. Constitutional: Appearance: Normal appearance. HENT: Head: Normocephalic and atraumatic. Eyes: General: Lids are everted, no foreign bodies appreciated. Conjunctiva/sclera: Right eye: Right conjunctiva is not injected. No exudate or hemorrhage. Left eye: Left conjunctiva is not injected. No exudate or hemorrhage. Pupils: Pupils are equal, round, and reactive to light. Comments: Mild left upper lid swelling Cardiovascular: Rate and Rhythm: Normal rate and regular rhythm. Musculoskeletal: Cervical back: Normal range of motion and neck supple. Skin: Findings: Rash present. Rash is macular and papular. Rash is not crusting, purpuric or vesicular. Comments: Pruritic erythremic papular on face and arms bilaterally and trunk Neurological: Mental Status: She is alert. {1. Contact dermatitis due to plants, except food, unspecified contact dermatitis type (L25.5) - Clinical presentation consistent with contact dermatitis secondary to plant exposure, likely poison alejandro or sumac. - Advised use of Zyrtec during the day to manage pruritus, with Benadryl at night for additional relief and sedation. - Prescribed topical Kenalog cream to be applied to affected areas, including eyelids, for no longer than 10 days on the eyelids and 2 weeks on the face to reduce inflammation and pruritus. - Discussed risks of systemic corticosteroids during , including potential teratogenic effects such as cleft palate; oral steroids to be considered only if severe periorbital edema threatens vision. - Recommended use of IV Dry Soap or similar emulsifying soaps to remove urushiol oil and prevent further spread. - Patient understands and agrees with the treatment plan. and Recording using [employer] software for draft documentation of the visit was discussed with the patient/authorized food products sales representative; all questions welcomed and answered. Patient/authorized food products sales representative agreed to proceed History and Record Review External record(s) reviewed: prior outpatient record. Findings from review of outpatient records: previous medical history Differential Diagnoses - Contact dermatitis is more likely for the following reason(s): suggested by HANDP - Peroribital cellulitis is less likely for the following reason(s): HANDP not suggestive Disposition The patient was discharged. OTC Medications were advised: Tylenol Zyrtec [facility] 03-10-2022 Miscellaneous Notes Consult for pelvic floor therapy placed. Alisha Mayberry APRN.CNM documented in this encounter [facility] 03-03-2022 History of Presen t illness Narrative NST SUMMARY PROVIDER ASSESSMENT AND INTERPRETATION Connie Sanford is a 41 year old female, , who is at 38w4d with an FLAKO of 03/13/2022, by Last Menstrual Period dating method. Indications for NST: AMA Baseline: 130 Variability: Moderate Accelerations: Present 15 X 15 Decelerations: None Contractions: TOCO: Irregular Interpretation: Category I and Reactive SIGNATURE: Valeriano Barron MD documented in this encounter [facility] 03-03-2022 Miscellaneous Notes RR_ NO VB/LOF. No regular ctxs. Good FM. R/B/A/P to pit/arom reviewed. low risk of shoulder dystocia reviewed, clinically a c/s not recommended. She agrees w/ induction. Consent signed. Scheduled for 03/07 due to L&D schedule. Patient comfortable w/ plan. Valeriano Barron MD documented in this encounter [facility] 03-03-2022 Cris Torres Ma - 03/03/2022 2:35 PM EDT SEQUENTIAL SCREENINGS The [facility] offers sequential screenings for women who are interested in screenings for chromosomal abnormalities and certain defects during a . The sequential screen combines ultrasound and blood tests to determine the risk of chromosomal abnormalities, including Down's Syndrome (Trisomy 21) and Trisomy 18, as well as open neural tube defects including spina bifida. Ultrasound examination is performed between 11 weeks and 13 weeks gestational age. Blood tests are drawn after the ultrasound and again later in the between 15 and 21 weeks gestational age. Please let your physician know if you are interested in this testing. It will require an appointment with our sound technician. This is not an ultrasound performed by a physician in our office during a routine visit. SIGNS AND SYMPTOMS OF LABOR 1. Contractions every 10 minutes or more often 2. Clear, pink, or brownish fluid (water) leaking from vagina 3. Feeling that baby is pushing down, pressure 4. Low, dull backache 5. Cramps that feel like a period 6. Cramps with or without diarrhea If you notice any of the above symptoms, contact our office at [phone] and ask to speak with a nurse. After hours, you can call doctors registry at [phone] OR call [facility] at [phone] and ask to have the doctor carbon cleaner paged. If you consider this an emergency, dial 9--8 or go to your nearest emergency department. NEED HELP? Are you dealing with a violent or abusive relationship? Are you a victim of rape or sexual assult? Call [facility] ([place]) 24 hour Crisis Hotline: 186.931.3145 or 103-467-4384. MANUAL Your Guide to a Healthy manual is now on-line. Visit [email or web address] to download your free copy documented in this encounter [facility] 02-16-2022 History of Presen t illness Narrative NST SUMMARY PROVIDER ASSESSMENT AND INTERPRETATION Connie Sanford is a 41 year old female, , who is at 36w3d with an FLAKO of 03/13/2022, by Last Menstrual Period dating method. Indications for NST: AMA Baseline: 130 Variability: Moderate Accelerations: Present 15 X 15 Decelerations: None Contractions: TOCO: None Interpretation: Category I and Reactive SIGNATURE: Alisha Mayberry APRN.CNM documented in this encounter [facility] 02-16-2022 Miscellaneous Notes Connie Sanford is a 41 year old female who presents at 36w3d for a routine visit and NST. NST reactive, and category 1 tracing. No contractions noted or felt. Good movement. Denies headache, visual changes, chest pain, shortness of breath, vaginal bleeding, leakage of fluid, or dysuria. Feeling well, no complaints. Discussed induction of labor at 39 weeks and patient agrees with plan of care. ASSESSMENT/PLAN: 1. 36 weeks gestation of - ICD9: V22.2, ICD10: Z3A.36 (primary diagnosis) - URINE OB DIP B/O - ROUTINE, GROUP B STREP PCR 2. Multigravida of advanced maternal age in first trimester - ICD9: 659.63, ICD10: O09.521 - NST reactive - Induction of labor at 39 weeks (03/06/22) - will need to sign consent 3. History of shoulder dystocia in prior - ICD9: V13.29, ICD10: Z87.59 - EFW 70% at 36 weeks gestation PTL precautions and kick counts reviewed. RTO- 1 week for NST and NIMCO Alisha Mayberry APRN.CNM documented in this encounter [facility] 02-16-2022 Instructions Mike Kunz [facility] - 02/16/2022 1:37 PM EDT SEQUENTIAL SCREENINGS The [facility] offers sequential screenings for women who are interested in screenings for chromosomal abnormalities and certain defects during a . The sequential screen combines ultrasound and blood tests to determine the risk of chromosomal abnormalities, including Down's Syndrome (Trisomy 21) and Trisomy 18, as well as open neural tube defects including spina bifida. Ultrasound examination is performed between 11 weeks and 13 weeks gestational age. Blood tests are drawn after the ultrasound and again later in the between 15 and 21 weeks gestational age. Please let your physician know if you are interested in this testing. It will require an appointment with our sound technician. This is not an ultrasound performed by a physician in our office during a routine visit. SIGNS AND SYMPTOMS OF LABOR 1. Contractions every 10 minutes or more often 2. Clear, pink, or brownish fluid (water) leaking from vagina 3. Feeling that baby is pushing down, pressure 4. Low, dull backache 5. Cramps that feel like a period 6. Cramps with or without diarrhea If you notice any of the above symptoms, contact our office at [phone] and ask to speak with a nurse. After hours, you can call doctors registry at [phone] OR call [facility] at [phone] and ask to have the doctor carbon cleaner paged. If you consider this an emergency, dial -[phone] or go to your nearest emergency department. NEED HELP? Are you dealing with a violent or abusive relationship? Are you a victim of rape or sexual assult? Call [facility] ([place]) 24 hour Crisis Hotline: 431.736.4098 or 385-670-7663. MANUAL Your Guide to a Healthy manual is now on-line. Visit [email or web address] to download your free copy documented in this encounter [facility] 02-07-2022 Miscellaneous Notes Addended by: CLEM GARCIA on: 02/07/2022 03:37 PM Modules accepted: Orders Addended by: PREETHI MACDONALD MA on: 02/07/2022 03:35 PM Modules accepted: Orders KJ - No VB/LOF/ctxs. Reports good FM. A&P: AMA - continue aspirin. Growth US & NST today. Plan for 39 week induction. Reviewed PTL & FM precautions Varicose veins - schedule with vascular surgery Clem Garcia MD documented in this encounter [facility] 02-07-2022 History of Presen t illness Narrative NST SUMMARY PROVIDER ASSESSMENT AND INTERPRETATION Connie Sanford is a 41 year old female, , who is at 35w1d with an FLAKO of 03/13/2022, by Last Menstrual Period dating method. Indications for NST: AMA Baseline: 130 Variability: Moderate Accelerations: Present 15 X 15 Decelerations: None Contractions: TOCO: Irritability Interpretation: Reactive SIGNATURE: Clem Garcia MD documented in this encounter [facility] 02-07-2022 Instructions Preethi Macdonald Ma - 02/07/2022 1:21 PM EDT SEQUENTIAL SCREENINGS The [facility] offers sequential screenings for women who are interested in screenings for chromosomal abnormalities and certain defects during a . The sequential screen combines ultrasound and blood tests to determine the risk of chromosomal abnormalities, including Down's Syndrome (Trisomy 21) and Trisomy 18, as well as open neural tube defects including spina bifida. Ultrasound examination is performed between 11 weeks and 13 weeks gestational age. Blood tests are drawn after the ultrasound and again later in the between 15 and 21 weeks gestational age. Please let your physician know if you are interested in this testing. It will require an appointment with our sound technician. This is not an ultrasound performed by a physician in our office during a routine visit. SIGNS AND SYMPTOMS OF LABOR 1. Contractions every 10 minutes or more often 2. Clear, pink, or brownish fluid (water) leaking from vagina 3. Feeling that baby is pushing down, pressure 4. Low, dull backache 5. Cramps that feel like a period 6. Cramps with or without diarrhea If you notice any of the above symptoms, contact our office at [phone] and ask to speak with a nurse. After hours, you can call doctors registry at [phone] OR call [facility] at [phone] and ask to have the doctor carbon cleaner paged. If you consider this an emergency, dial 9-1-3 or go to your nearest emergency department. NEED HELP? Are you dealing with a violent or abusive relationship? Are you a victim of rape or sexual assult? Call [facility] ([place]) 24 hour Crisis Hotline: 946.574.6981 or 877-282-0540. MANUAL Your Guide to a Healthy manual is now on-line. Visit [email or web address] to download your free copy documented in this encounter [facility] 01-05-2022 Miscellaneous Notes DM- Pt doing well today. Denies Vaginal Bleeding, Leaking fluid, or contractions. Pt reports good movement. Some warmth with varicose veins in one area- reviewed relief measures- recommend compression stockings. Seeing vascular at end of month. S/Sx of DVT reviewed- no concerns today for this. Kick counts reviewed. Tdap today. Growth us ordered 32 weeks. Quynh Esteban MD documented in this encounter [facility] 01-05-2022 Instructions Safia Torres Ousmane - 01/05/2022 2:34 PM EDT SEQUENTIAL SCREENINGS The [facility] offers sequential screenings for women who are interested in screenings for chromosomal abnormalities and certain defects during a . The sequential screen combines ultrasound and blood tests to determine the risk of chromosomal abnormalities, including Down's Syndrome (Trisomy 21) and Trisomy 18, as well as open neural tube defects including spina bifida. Ultrasound examination is performed between 11 weeks and 13 weeks gestational age. Blood tests are drawn after the ultrasound and again later in the between 15 and 21 weeks gestational age. Please let your physician know if you are interested in this testing. It will require an appointment with our sound technician. This is not an ultrasound performed by a physician in our office during a routine visit. SIGNS AND SYMPTOMS OF LABOR 1. Contractions every 10 minutes or more often 2. Clear, pink, or brownish fluid (water) leaking from vagina 3. Feeling that baby is pushing down, pressure 4. Low, dull backache 5. Cramps that feel like a period 6. Cramps with or without diarrhea If you notice any of the above symptoms, contact our office at [phone] and ask to speak with a nurse. After hours, you can call doctors registry at [phone] OR call [facility] at [phone] and ask to have the doctor carbon cleaner paged. If you consider this an emergency, dial 9--1 or go to your nearest emergency department. NEED HELP? Are you dealing with a violent or abusive relationship? Are you a victim of rape or sexual assult? Call [facility] ([place]) 24 hour Crisis Hotline: 380.853.7574 or 097-390-5379. MANUAL Your Guide to a Healthy manual is now on-line. Visit [email or web address] to download your free copy documented in this encounter [facility] 12-08-2021 Miscellaneous Notes KJ - No VB/LOF/ctxs. Reports good FM. A&P: 28wk labs Plans for Tdap at next visit Declines LARC Varicose veins - schedule with vascular surgery Reviewed PTL & FM precautions Discussed healthy weight gain in AMA - continue aspirin. Plan for 3rd trimester growth US & delivery at 39 weeks. Clem Garcia MD documented in this encounter [facility] 12-08-2021 Cris Macdonald Ma - 12/08/2021 2:34 PM EDT SEQUENTIAL SCREENINGS The [facility] offers sequential screenings for women who are interested in screenings for chromosomal abnormalities and certain defects during a . The sequential screen combines ultrasound and blood tests to determine the risk of chromosomal abnormalities, including Down's Syndrome (Trisomy 21) and Trisomy 18, as well as open neural tube defects including spina bifida. Ultrasound examination is performed between 11 weeks and 13 weeks gestational age. Blood tests are drawn after the ultrasound and again later in the between 15 and 21 weeks gestational age. Please let your physician know if you are interested in this testing. It will require an appointment with our sound technician. This is not an ultrasound performed by a physician in our office during a routine visit. SIGNS AND SYMPTOMS OF LABOR 1. Contractions every 10 minutes or more often 2. Clear, pink, or brownish fluid (water) leaking from vagina 3. Feeling that baby is pushing down, pressure 4. Low, dull backache 5. Cramps that feel like a period 6. Cramps with or without diarrhea If you notice any of the above symptoms, contact our office at [phone] and ask to speak with a nurse. After hours, you can call doctors registry at [phone] OR call [facility] at [phone] and ask to have the doctor carbon cleaner paged. If you consider this an emergency, dial or go to your nearest emergency department. NEED HELP? Are you dealing with a violent or abusive relationship? Are you a victim of rape or sexual assult? Call [facility] ([place]) 24 hour Crisis Hotline: 683.440.6057 or 761-572-7797. MANUAL Your Guide to a Healthy manual is now on-line. Visit [email or web address] to download your free copy documented in this encounter [facility] 11-03-2021 Miscellaneous Notes Left detailed message on identified voicemail. Patient to call the office if she has questions. Faby Palma RN Please call patient to ask her if she wants AFP done. It appears she did not have any of her labwork drawn at 10/06/2021 that was ordered. This test needs to be done before 22 weeks if she wants AFP done. documented in this encounter [facility] 10-06-2021 Miscellaneous Notes KJ - No VB/LOF/ctxs. Also she felt some FM about 2 weeks ago and not much since. Also she reports some LE swelling (resolves at night) & increase varicose veins. A&P: AMA - continue aspirin Varicose veins - consult to vascular surgery. Discussed signs of DVT Anatomy US next week Clem Garcia MD documented in this encounter [facility] 10-06-2021 Instructions Preethi Macdonald Ma - 10/06/2021 10:30 AM EDT SEQUENTIAL SCREENINGS The [facility] offers sequential screenings for women who are interested in screenings for chromosomal abnormalities and certain defects during a . The sequential screen combines ultrasound and blood tests to determine the risk of chromosomal abnormalities, including Down's Syndrome (Trisomy 21) and Trisomy 18, as well as open neural tube defects including spina bifida. Ultrasound examination is performed between 11 weeks and 13 weeks gestational age. Blood tests are drawn after the ultrasound and again later in the between 15 and 21 weeks gestational age. Please let your physician know if you are interested in this testing. It will require an appointment with our sound technician. This is not an ultrasound performed by a physician in our office during a routine visit. SIGNS AND SYMPTOMS OF LABOR 1. Contractions every 10 minutes or more often 2. Clear, pink, or brownish fluid (water) leaking from vagina 3. Feeling that baby is pushing down, pressure 4. Low, dull backache 5. Cramps that feel like a period 6. Cramps with or without diarrhea If you notice any of the above symptoms, contact our office at [phone] and ask to speak with a nurse. After hours, you can call doctors registry at [phone] OR call [facility] at [phone] and ask to have the doctor carbon cleaner paged. If you consider this an emergency, dial 6-1-7 or go to your nearest emergency department. NEED HELP? Are you dealing with a violent or abusive relationship? Are you a victim of rape or sexual assult? Call [facility] ([place]) 24 hour Crisis Hotline: 283.668.7669 or 383-065-2055. MANUAL Your Guide to a Healthy manual is now on-line. Visit [email or web address] to download your free copy documented in this encounter [facility] 09-09-2021 Miscellaneous Notes Called Connie Sanford and left message for patient on identified voicemail. Connie Sanford was informed of negative Non-Invasive Testing (NIPT) results for Trisomy 21, Trisomy 18 and Trisomy 13. Patient was also notified of the result of no sex chromosome aneuploidy detected. Patient instructed to call the office back if she wishes to know reported sex. Reviewed on identified voicemail that NIPT is considered screening and not diagnostic, so this result greatly reduces, but does not eliminate the chance that the fetus could have trisomy 21, trisomy 18, trisomy 13 or sex chromosome aneuploidy. Connie Sanford instructed to call office if she has questions. Patient advised to follow up with AFP neural tube defect screening (blood draw) at 16-18 weeks gestation and 18-20 week detailed anatomy ultrasound. Also instructed to follow-up with Primary OB Provider. Kathya Pinon RN documented in this encounter [facility] 09-02-2021 Miscellaneous Notes SW- pt doing well. No pain, vb, lof. Nausea still present but no vomiting. Bonita PO. NT today. Blood work and NIPT today. Will need AFP at future appointment. Ordered anatomy US. Discussed starting baby ASA. RTO 4 wks. Gogo Espinoza DO documented in this encounter [facility] 09-02-2021 Instructions Eneida Deluca MA - 09/02/2021 3:36 PM EDT SEQUENTIAL SCREENINGS The [facility] offers sequential screenings for women who are interested in screenings for chromosomal abnormalities and certain defects during a . The sequential screen combines ultrasound and blood tests to determine the risk of chromosomal abnormalities, including Down's Syndrome (Trisomy 21) and Trisomy 18, as well as open neural tube defects including spina bifida. Ultrasound examination is performed between 11 weeks and 13 weeks gestational age. Blood tests are drawn after the ultrasound and again later in the between 15 and 21 weeks gestational age. Please let your physician know if you are interested in this testing. It will require an appointment with our sound technician. This is not an ultrasound performed by a physician in our office during a routine visit. SIGNS AND SYMPTOMS OF LABOR 1. Contractions every 10 minutes or more often 2. Clear, pink, or brownish fluid (water) leaking from vagina 3. Feeling that baby is pushing down, pressure 4. Low, dull backache 5. Cramps that feel like a period 6. Cramps with or without diarrhea If you notice any of the above symptoms, contact our office at [phone] and ask to speak with a nurse. After hours, you can call doctors registry at [phone] OR call [facility] at [phone] and ask to have the doctor carbon cleaner paged. If you consider this an emergency, dial [phone]--2 or go to your nearest emergency department. NEED HELP? Are you dealing with a violent or abusive relationship? Are you a victim of rape or sexual assult? Call [facility] ([place]) 24 hour Crisis Hotline: 274.389.6300 or 664-977-2234. MANUAL Your Guide to a Healthy manual is now on-line. Visit [email or web address] to download your free copy documented in this encounter [facility] 12-12-2019 History of Past i llness Narrative Problem Noted Date Resolved Date Anemia during in third trimester 12/1108/12/2021 History of spontaneous 10/09/2017 07/04/2019 Overview: History of SAB x 2. To take ASA 81mg PO once daily. Lynn Matute APRN.MARISA Normal labor 12/12/2015 10/03/2017 41 weeks gestation of 12/12/2015 10/03/2017 Vaginal delivery 12/12/2015 10/03/2017 Supervision of other normal , antepartu m 05/19/2015 10/03/2017 Supervision of other normal 07/17/2013 05/19/2015 anomaly 07/11/2013 05/19/2015 Overview: Small stomach bubble with 2013 delivery- baby fine Nephrolithiasis 05/07/2013 08/12/2021 Overview: Only noted during pregnancies Abdominal pain, other specified site 07/26/2011 05/07/2013 Supervision of normal subsequent 04/1707/18/2013 Supervision of other normal 06/10/2008 02/22/2009 Supervision of normal first 02/06/2006 10/08/2006 documented as of this encounter (statuses as of 09/02/2021) [facility] History of Past illness Narrative* Problem Noted Date Resolved Date Anemia during in third trimester 12/1108/12/2021 History of spontaneous 10/09/2017 07/04/2019 Overview: History of SAB x 2. To take ASA 81mg PO once daily. Lynn Matute APRN.CNM Normal labor 12/12/2015 10/03/2017 41 weeks gestation of 12/12/2015 10/03/2017 Vaginal delivery 12/12/2015 10/03/2017 Supervision of other normal , antepartu m 05/19/2015 10/03/2017 Supervision of other normal 07/17/2013 05/19/2015 anomaly 07/11/2013 05/19/2015 Overview: Small stomach bubble with 2014 delivery- baby fine Nephrolithiasis 05/07/2013 08/12/2021 Overview: Only noted during pregnancies Abdominal pain, other specified site 07/26/2011 05/07/2013 Supervision of normal subsequent 04/1707/18/2013 Supervision of other normal 06/10/2008 02/22/2009 Supervision of normal first 02/06/2006 10/08/2006 documented as of this encounter (statuses as of 09/09/2021) [facility] of Past illness Narrative* Problem Noted Date Resolved Date Anemia during in third trimester 12/1108/12/2021 History of spontaneous 10/09/2017 07/04/2019 Overview: History of SAB x 2. To take ASA 81mg PO once daily. Lynn Matute APRN.CNM Normal labor 12/12/2015 10/03/2017 41 weeks gestation of 12/12/2015 10/03/2017 Vaginal delivery 12/12/2015 10/03/2017 Supervision of other normal , antepartu m 05/19/2015 10/03/2017 Supervision of other normal 07/17/2013 05/19/2015 anomaly 07/11/2013 05/19/2015 Overview: Small stomach bubble with 2013 delivery- baby fine Nephrolithiasis 05/07/2013 08/12/2021 Overview: Only noted during pregnancies Abdominal pain, other specified site 07/26/2011 05/07/2013 Supervision of normal subsequent 04/1707/18/2013 Supervision of other normal 06/10/2008 02/22/2009 Supervision of normal first 02/06/2006 10/08/2006 documented as of this encounter (statuses as of 10/06/2021) [facility] History of Past illness Narrative* Problem Noted Date Resolved Date Anemia during in third trimester 12/1108/12/2021 History of spontaneous 10/09/2017 07/04/2019 Overview: History of SAB x 2. To take ASA 81mg PO once daily. Lynn Matute APRN.MARISA Normal labor 12/12/2015 10/03/2017 41 weeks gestation of 12/12/2015 10/03/2017 Vaginal delivery 12/12/2015 10/03/2017 Supervision of other normal , antepartu m 05/19/2015 10/03/2017 Supervision of other normal 07/17/2013 05/19/2015 anomaly 07/11/2013 05/19/2015 Overview: Small stomach bubble with 2013 delivery- baby fine Nephrolithiasis 05/07/2013 08/12/2021 Overview: Only noted during pregnancies Abdominal pain, other specified site 07/26/2011 05/07/2013 Supervision of normal subsequent 04/1707/18/2013 Supervision of other normal 06/10/2008 02/22/2009 Supervision of normal first 02/06/2006 10/08/2006 documented as of this encounter (statuses as of 10/13/2021) [facility] of Past illness Narrative* Problem Noted Date Resolved Date Anemia during in third trimester 12/1108/12/2021 History of spontaneous 10/09/2017 07/04/2019 Overview: History of SAB x 2. To take ASA 81mg PO once daily. Lynn Matute APRN.CNM Normal labor 12/12/2015 10/03/2017 41 weeks gestation of 12/12/2015 10/03/2017 Vaginal delivery 12/12/2015 10/03/2017 Supervision of other normal , antepartu 05/19/2015 10/03/2017 Supervision of other normal 07/17/2013 05/19/2015 anomaly 07/11/2013 05/19/2015 Overview: Small stomach bubble with 2013 delivery- baby fine Nephrolithiasis 05/07/2013 08/12/2021 Overview: Only noted during pregnancies Abdominal pain, other specified site 07/26/2011 05/07/2013 Supervision of normal subsequent 04/1707/18/2013 Supervision of other normal 06/10/2008 02/22/2009 Supervision of normal first 02/06/2006 10/08/2006 documented as of this encounter (statuses as of 11/03/2021) [facility] of [facility] illness Narrative* Problem Noted Date Resolved Date Anemia during in third trimester 12/1108/12/2021 History of spontaneous 10/09/2017 07/04/2019 Overview: History of SAB x 2. To take ASA 81mg PO once daily. Lynn Matute APRN.CNM Normal labor 12/12/2015 10/03/2017 41 weeks gestation of 12/12/2015 10/03/2017 Vaginal delivery 12/12/2015 10/03/2017 Supervision of other normal , antepartu m 05/19/2015 10/03/2017 Supervision of other normal 07/17/2013 05/19/2015 anomaly 07/11/2013 05/19/2015 Overview: Small stomach bubble with 2013 delivery- baby fine Nephrolithiasis 05/07/2013 08/12/2021 Overview: Only noted during pregnancies Abdominal pain, other specified site 07/26/2011 05/07/2013 Supervision of normal subsequent 04/1707/18/2013 Supervision of other normal 06/10/2008 02/22/2009 Supervision of normal first 02/06/2006 10/08/2006 documented as of this encounter (statuses as of 12/08/2021) [facility] of Past illness Narrative* Problem Noted Date Resolved Date Anemia during in third trimester 12/1108/12/2021 History of spontaneous 10/09/2017 07/04/2019 Overview: History of SAB x 2. To take ASA 81mg PO once daily. Lynn Matute APRN.CNM Normal labor 12/12/2015 10/03/2017 41 weeks gestation of 12/12/2015 10/03/2017 Vaginal delivery 12/12/2015 10/03/2017 Supervision of other normal , antepartu m 05/19/2015 10/03/2017 Supervision of other normal 07/17/2013 05/19/2015 anomaly 07/11/2013 05/19/2015 Overview: Small stomach bubble with 2014 delivery- baby fine Nephrolithiasis 05/07/2013 08/12/2021 Overview: Only noted during pregnancies Abdominal pain, other specified site 07/26/2011 05/07/2013 Supervision of normal subsequent 04/1707/18/2013 Supervision of other normal 06/10/2008 02/22/2009 Supervision of normal first 02/06/2006 10/08/2006 documented as of this encounter (statuses as of 01/05/2022) [facility] of [facility] illness Narrative* Problem Noted Date Resolved Date Anemia during in third trimester 12/1108/12/2021 History of spontaneous 10/09/2017 07/04/2019 Overview: History of SAB x 2. To take ASA 81mg PO once daily. Lynn Matute APRN.CNM Normal labor 12/12/2015 10/03/2017 41 weeks gestation of 12/12/2015 10/03/2017 Vaginal delivery 12/12/2015 10/03/2017 Supervision of other normal , antepartu m 05/19/2015 10/03/2017 Supervision of other normal 07/17/2013 05/19/2015 anomaly 07/11/2013 05/19/2015 Overview: Small stomach bubble with 2013 delivery- baby fine Nephrolithiasis 05/07/2013 08/12/2021 Overview: Only noted during pregnancies Abdominal pain, other specified site 07/26/2011 05/07/2013 Supervision of normal subsequent 04/1707/18/2013 Supervision of other normal 06/10/2008 02/22/2009 Supervision of normal first 02/06/2006 10/08/2006 documented as of this encounter (statuses as of 02/07/2022) [facility] of Past illness Narrative* Problem Noted Date Resolved Date Anemia during in third trimester 12/1108/12/2021 History of spontaneous 10/09/2017 07/04/2019 Overview: History of SAB x 2. To take ASA 81mg PO once daily. Lynn Matute APRN.CNM Normal labor 12/12/2015 10/03/2017 41 weeks gestation of 12/12/2015 10/03/2017 Vaginal delivery 12/12/2015 10/03/2017 Supervision of other normal , antepartu m 05/19/2015 10/03/2017 Supervision of other normal 07/17/2013 05/19/2015 anomaly 07/11/2013 05/19/2015 Overview: Small stomach bubble with 2013 delivery- baby fine Nephrolithiasis 05/07/2013 08/12/2021 Overview: Only noted during pregnancies Abdominal pain, other specified site 07/26/2011 05/07/2013 Supervision of normal subsequent 04/1707/18/2013 Supervision of other normal 06/10/2008 02/22/2009 Supervision of normal first 02/06/2006 10/08/2006 documented as of this encounter (statuses as of 02/07/2022) [facility] of [facility] illness Narrative* Problem Noted Date Resolved Date Anemia during in third trimester 12/1108/12/2021 History of spontaneous 10/09/2017 07/04/2019 Overview: History of SAB x 2. To take ASA 81mg PO once daily. Lynn Matute APRN.CNM Normal labor 12/12/2015 10/03/2017 41 weeks gestation of 12/12/2015 10/03/2017 Vaginal delivery 12/12/2015 10/03/2017 Supervision of other normal , antepartu m 05/19/2015 10/03/2017 Supervision of other normal 07/17/2013 05/19/2015 anomaly 07/11/2013 05/19/2015 Overview: Small stomach bubble with 2014 delivery- baby fine Nephrolithiasis 05/07/2013 08/12/2021 Overview: Only noted during pregnancies Abdominal pain, other specified site 07/26/2011 05/07/2013 Supervision of normal subsequent 04/1707/18/2013 Supervision of other normal 06/10/2008 02/22/2009 Supervision of normal first 02/06/2006 10/08/2006 documented as of this encounter (statuses as of 02/16/2022) [facility] of Past illness Narrative* Problem Noted Date Resolved Date Anemia during in third trimester 12/1108/12/2021 History of spontaneous 10/09/2017 07/04/2019 Overview: History of SAB x 2. To take ASA 81mg PO once daily. Lynn Matute APRN.CNM Normal labor 12/12/2015 10/03/2017 41 weeks gestation of 12/12/2015 10/03/2017 Vaginal delivery 12/12/2015 10/03/2017 Supervision of other normal , antepartu m 05/19/2015 10/03/2017 Supervision of other normal 07/17/2013 05/19/2015 anomaly 07/11/2013 05/19/2015 Overview: Small stomach bubble with 2013 delivery- baby fine Nephrolithiasis 05/07/2013 08/12/2021 Overview: Only noted during pregnancies Abdominal pain, other specified site 07/26/2011 05/07/2013 Supervision of normal subsequent 04/1707/18/2013 Supervision of other normal 06/10/2008 02/22/2009 Supervision of normal first 02/06/2006 10/08/2006 documented as of this encounter (statuses as of 03/03/2022) [facility] of Past illness Narrative* Problem Noted Date Resolved Date Anemia during in third trimester 12/1108/12/2021 History of spontaneous 10/09/2017 07/04/2019 Overview: History of SAB x 2. To take ASA 81mg PO once daily. Lynn Matute APRN.MARISA Normal labor 12/12/2015 10/03/2017 41 weeks gestation of 12/12/2015 10/03/2017 Vaginal delivery 12/12/2015 10/03/2017 Supervision of other normal , antepartu m 05/19/2015 10/03/2017 Supervision of other normal 07/17/2013 05/19/2015 anomaly 07/11/2013 05/19/2015 Overview: Small stomach bubble with 2013 delivery- baby fine Nephrolithiasis 05/07/2013 08/12/2021 Overview: Only noted during pregnancies Abdominal pain, other specified site 07/26/2011 05/07/2013 Supervision of normal subsequent 04/1707/18/2013 Supervision of other normal 06/10/2008 02/22/2009 Supervision of normal first 02/06/2006 10/08/2006 documented as of this encounter (statuses as of 03/10/2022) [facility] 12 weeks gestation of - Primary state, incidental Antepartum multigravida of advanced maternal age Supervision of high risk in third trimester Unspecified high-risk [facility] Diagnosis Supervision of high risk in second trimester- Primary Unspecified high-risk 17 weeks gestation of state, incidental Varicose veins of both lower extremities during [facility] Diagnosis Encounter for anatomic survey- Primary Multigravida of advanced maternal age in second trimester 18 weeks gestation of state, incidental [facility] Diagnosis Antepartum multigravida of advanced maternal age- Primary 26 weeks gestation of state, incidental [facility]* Diagnosis AMA (advanced maternal age) multigravida 35+, third trimester- Primary Varicose veins of both lower extremities during Supervision of high risk in third trimester Unspecified high-risk History of macrosomia in infant in prior , currently in third trimester 30 weeks gestation of state, incidental [facility] Diagnosis Onset Date Resolution Status Wellness examination acute [facility] Work Phone: evaluation note* Diagnosis AMA (advanced maternal age) multigravida 35+, third trimester- Primary 35 weeks gestation of state, incidental [facility]* Diagnosis Multigravida of advanced maternal age in third trimester- Primary 35 weeks gestation of state, incidental [facility] Diagnosis 36 weeks gestation of - Primary state, incidental Multigravida of advanced maternal age in first trimester History of shoulder dystocia in prior [facility]* Diagnosis AMA (advanced maternal age) primigravida 35+, third trimester- Primary History of shoulder dystocia in prior 38 weeks gestation of state, incidental [facility]* Diagnosis Onset Date Resolution Status Wellness examination acute 39 weeks gestation of acute Advanced maternal age (AMA) in acute Care and examination of lactating mother acute Encounter for induction of labor acute Grand multipara in labor acu te History of precipitous delivery acute History of shoulder dystocia acute Laceration, obstetrical, second degree acute Vaginal delivery acute [facility] Work Phone: evaluation note* Diagnosis Urinary incontinence, unspecified type- Primary documented in this encounter [facility] note* Diagnosis Encounter for supervision of high risk in first trimester, antepartum (HCC)- Primary 12 weeks gestation of ([facility]) state, incidental with uncertain dates in second trimester ([facility]) Screen for STD (sexually transmitted disease) Screening examination for venereal disease with uncertain dates, antepartum ([facility]) state, incidental History of shoulder dystocia in prior Multigravida of advanced maternal age in first trimester ([facility]) Nausea and vomiting during ([facility]) documented in this encounter [facility] note* Diagnosis Supervision of high risk in second trimester ([facility])- Primary Unspecified high-risk History of shoulder dystocia in prior AMA (advanced maternal age) multigravida 35+, second trimester (HCC) 15 weeks gestation of ([facility]) state, incidental * Assessment & Plan Note - Valeriano Barron MD - 12/16/2024 9:07 AM EDT Associated Problem(s): History of shoulder dystocia in prior plans vaginal delivery documented in this encounter [facility] note* Diagnosis Encounter for screening for malformation using ultrasound ([facility])- Primary Multigravida of advanced maternal age in first trimester (HCC) 15 weeks gestation of (HCC) state, incidental Supervision of high risk in second trimester ([facility])- Primary Unspecified high-risk History of shoulder dystocia in prior AMA (advanced maternal age) multigravida 35+, second trimester (HCC) 15 weeks gestation of ([facility]) state, incidental documented in this encounter [facility] for referral (narrative)* Diagnostic Procedure Only (Routine) - Authorized Specialty Diagnoses / Procedures Referred By Vanda valdez Referred To Contact [facility] Diagnoses 12 weeks gestation of Antepartum multigravida of advanced maternal age Supervision of high risk in third trimester Procedures OBSTETRIC ULTRASOUND WHI US PREG UTERUS AFTER 1ST TRIMEST GESTATION Gogo Espinoza MD [address] [place] [address] [id number] [place] [address] Referral ID Status Reason Start Date Expiration Date Visits Requested Visits Authorized [id number] Authorized Auto-Generat ed Referral 09/02/2021 09/02/2022 1 1 [facility] for referral (narrative)* Diagnostic Procedure Only (Routine) - Pending Review Specialty Diagnoses / Procedures Referred By Contac t Referred To Contact [facility] Diagnoses 30 weeks gestation of Supervision of high risk in third trimester AMA (advanced maternal age) multigravida 35+, third trimester History of macrosomia in in prior , currently in third trimester Procedures OBSTETRIC ULTRASOUND WHI US PREG UTERUS AFTER 1ST TRIMEST GESTATION Quynh Mary MD [address] [place] [address] [address] Referral ID Status Reason Start Date Expiration Date Visits Requested Visits Authorized [id number] Pending Review Auto-Generat ed Referral 01/05/2022 01/05/2023 1 1 T [facility] for referral (narrative)* Outpatient Procedure (Routine) - Pending Review Specialty Diagnoses / Procedures Referred By Contac t Referred To Contact [facility] Diagnoses AMA (advanced maternal age) multigravida 35+, third trimester Procedures NON-STRESS TEST NON-STRESS TEST Clem Garcia MD [address] [place] [address] [address] Referral ID Status Reason Start Date Expiration Date Visits Requested Visits Authorized [id number] Pending Review Auto-Generat ed Referral 02/07/2022 02/07/2023 4 1 [facility] Summary Purpose Family History No Family History Records FoundNo Family History Records FoundNo Family History Records FoundNo Family History Records FoundNo Family History Records Found Advance Directives No Advanced Directives Records Found Advance Directive Response Recorded Date/ Time Living Will Yes February 11, 2020 7:31am Power of Chairman & Ceo Yes January 7:31am Advance Directive Response Recorded Date/ Time Living Will No March 07 8:47am Power of Chairman & Ceo No March 07, 2022 8:47am Health Concerns Problem Noted Date OB Reminders 08/12/2021 Problem Noted Date OB Reminders 08/12/2021 Problem Noted Date OB Reminders 08/12/2021 Problem Noted Date OB Reminders 08/12/2021 Problem Noted Date OB Reminders 08/12/2021 Problem Noted Date OB Reminders 08/12/2021 Problem Noted Date OB Reminders 08/12/2021 Problem Noted Date OB Reminders 08/12/2021 Problem Noted Date OB Reminders 08/12/2021 Problem Noted Date OB Reminders 08/12/2021 Reason for Referral Specialty Diagnoses / Procedures Referred By Vanda valdez Referred To Contact Vascular Surgery Diagnoses Varicose veins of both lower extremities during Procedures CONSULT TO VASCULAR SURGERY OFFICE/OUTPATIENT [facility] 60-74 MINUTES Clem Garcia MD [address] [place] [address] Referral ID Status Reason Start Date Expiration Date Visits Requested Visits Authorized [id number] Authorized PCP Requested Referral 10/06/2021 10/06/2022 1 1 Specialty Diagnoses / Procedures Referred By Vanda valdez Referred To Contact Gynecology Diagnoses Urinary incontinence, unspecified type Procedures CONSULT TO GYNECOLOGY OFFICE/OUTPATIENT [facility] 60-74 MINUTES Alisha Mayberry APRN.CNM [address] [place] [address] Referral ID Status Reason Start Date Expiration Date Visits Requested Visits Authorized [id number] Authorized PCP Requested Referral Auto-Generate d Referral 2 03/10/2023 1 1 Chief Complaint and Reason for Visit Chief Complaint Annual wellness exam PE Reason for Visit Wellness examination Chief Complaint Annual wellness exam PE vag Reason for Visit Wellness examination 39 weeks gestation of Advanced maternal age (AMA) in Care and examination of lactating mother Encounter for induction of labor Grand multipara in labor History of precipitous delivery History of shoulder dystocia Laceration, obstetrical, second degree Vaginal delivery Chief Complaint Preventive wellness exam PE Reason for Visit Wellness examination Additional Source Comments INFORMATION SOURCE (unrecogn ized section and content) DATE CREATED AUTHOR 06/21/2019 [facility] DATE CREATED AUTHOR AUTHOR'S ORGANIZ ATION 12/23/[address] [facility] DATE CREATED AUTHOR AUTHOR'S ORGANIZ ATION 01/10/2022 [facility] DATE CREATED AUTHOR AUTHOR'S ORGANIZ ATION 02/28/2024 [facility] DATE CREATED AUTHOR AUTHOR'S ORGANIZ ATION 12/17/[address] [facility] Source Comments (unrecognize d section and content) In the event this informatio n is protected by the Federal Confidentiality of Alcohol and Drug Abuse Patient Records regulations: The Federal rules restrict any use of the information to criminally investigate or prosecute any alcohol or drug abuse patient.[facility] the event this information is protected by the Federal Confidentiality of Alcohol and Drug Abuse Patient Records regulations: The Federal rules restrict any use of the information to criminally investigate or prosecute any alcohol or drug abuse patient.[facility] Hospital[facility] the event this information is protected by the Federal Confidentiality of Alcohol and Drug Abuse Patient Records regulations: The Federal rules restrict any use of the information to criminally investigate or prosecute any alcohol or drug abuse patient.[facility] the event this information is protected by the Federal Confidentiality of Alcohol and Drug Abuse Patient Records regulations: The Federal rules restrict any use of the information to criminally investigate or prosecute any alcohol or drug abuse patient.[facility] Hospital[facility] the event this information is protected by the Federal Confidentiality of Alcohol and Drug Abuse Patient Records regulations: The Federal rules restrict any use of the information to criminally investigate or prosecute any alcohol or drug abuse patient.[facility] Hospital[facility] the event this information is protected by the Federal Confidentiality of Alcohol and Drug Abuse Patient Records regulations: The Federal rules restrict any use of the information to criminally investigate or prosecute any alcohol or drug abuse patient.[facility] Hospital[facility] the event this information is protected by the Federal Confidentiality of Alcohol and Drug Abuse Patient Records regulations: The Federal rules restrict any use of the information to criminally investigate or prosecute any alcohol or drug abuse patient.[facility] Hospital[facility] the event this information is protected by the Federal Confidentiality of Alcohol and Drug Abuse Patient Records regulations: The Federal rules restrict any use of the information to criminally investigate or prosecute any alcohol or drug abuse patient.[facility] Hospital[facility] the event this information is protected by the Federal Confidentiality of Alcohol and Drug Abuse Patient Records regulations: The Federal rules restrict any use of the information to criminally investigate or prosecute any alcohol or drug abuse patient.[facility] Hospital[facility] the event this information is protected by the Federal Confidentiality of Alcohol and Drug Abuse Patient Records regulations: The Federal rules restrict any use of the information to criminally investigate or prosecute any alcohol or drug abuse patient.[facility] Hospital[facility] the event this information is protected by the Federal Confidentiality of Alcohol and Drug Abuse Patient Records regulations: The Federal rules restrict any use of the information to criminally investigate or prosecute any alcohol or drug abuse patient.[facility] HospitalIn the event this information is protected by the Federal Confidentiality of Alcohol and Drug Abuse Patient Records regulations: The Federal rules restrict any use of the information to criminally investigate or prosecute any alcohol or drug abuse patient.[facility] HospitalIn the event this information is protected by the Federal Confidentiality of Alcohol and Drug Abuse Patient Records regulations: The Federal rules restrict any use of the information to criminally investigate or prosecute any alcohol or drug abuse patient.[facility] HospitalIn the event this information is protected by the Federal Confidentiality of Alcohol and Drug Abuse Patient Records regulations: The Federal rules restrict any use of the information to criminally investigate or prosecute any alcohol or drug abuse patient.[facility] the event this information is protected by the [facility] Confidentiality of Alcohol and Drug Abuse Patient Records regulations: The Federal rules restrict any use of the information to criminally investigate or prosecute any alcohol or drug abuse patient.[facility] Reason for Visit (unrecogniz ed section and content) Reason Comments US Specialty Diagnoses / Procedures Referred By Contac t Referred To Contact [facility] Diagnoses with uncertain dates in second trimester (HCC) Procedures OBSTETRIC ULTRASOUND WHI US PREG UTERUS AFTER 1ST TRIMEST GESTATION Lanny Perdomo APRN.LIVAN [address] [place] [address] Phone: tel: fax: [facility] [address] [place] [address] Referral ID Status Reason Start Date Expiration Date V isits Requested Visits Authorized [id number] Closed Auto-Generate d Referral 11/20/2024 11/20/2025 1 1 Reason Onset Date Comments Care 09/02/2021 Reason Comments NIPT results Reason Onset Date Comments Care 10/06/2021 Reason Comments Lab Orders Reason Onset Date Comments Care 12/08/2021 Reason Onset Date Comments Care 01/05/2022 Specialty Diagnoses / Procedures Referred By Contac t Referred To Contact Vascular Surgery Diagnoses Varicose veins of both lower extremities during Procedures CONSULT TO VASCULAR SURGERY OFFICE/OUTPATIENT [facility] 60-74 MINUTES Clem Garcia MD [address] [place] [address] Referral ID Status Reason Start Date Expiration Date V isits Requested Visits Authorized [id number] Closed PCP Requested Referral 10/06/2021 10/06/2022 1 1 Reason Onset Date Comments Care 02/07/2022 Reason Onset Date Comments Care 02/16/2022 Reason Onset Date Comments Care 03/03/2022 Reason Comments Initial OB Visit Reason Onset Date Comments Care 12/16/2024 Goals (unrecognized section and content) Goals may be documented in a n alternate sectionGoals may be documented in an alternate section Care Teams (unrecognized sec tion and content) Team Status: Active Member Role Status Dates PEARL ALEMAN Family Provider Active Clemencia Garcia NP, DIRECTOR [employer] Primary Care Provider Active Team Status: Inactive Member Role Status Dates No Primary Care Physician Primary Care Provider, Refer ring Provider Active Clemencia Garcia NP, [employer]OR [employer] Attending Provider Active Team Status: Inactive Member Role Status Dates Clemencia Garcia NP, [employer]OR [employer] Primary Care Provider, Attend ing Provider Active FOR RECORDS PERTAINING TO PATIENTS WHO ARE OR HAVE BEEN ENROLLED IN A CHEMICAL DEPENDENCY/SUBSTANCEABUSE PROGRAM, SOME INFORMATION MAY BE OMITTED. This clinical summary was aggregated from multiple sources. Caution should be exercised in using it in the provision of clinical care. This summary normalizes information from multiple sources, and as a consequence, information in this document may materially change the coding, format and clinical context of patient data. In addition, data may be omitted in some cases. CLINICAL DECISIONS SHOULD BE BASED ON THE PRIMARY CLINICAL RECORDS. [employer] [facility]. provides no warranty or guarantee of the accuracy or completeness of information in this document.
[2024-12-24 21:59] LABS: Hematocrit 31.8 % (37-47); Hemoglobin 10.3 g/dL (12.0-15.0); Immature Granulocytes Count 0.040 X10^3/uL (0.0-0.0); Mean Corp Hgb Conc 32.4 g/dL (32-36); Mean Corpuscular Volume 94.6 fL (81-99); Mean Platelet Vol. 11.6 fl (6.2-12.0); NRBC Flagged by Analyzer 0 % (0-5); Platelet Count 236 K/mm3 (150-450); RBC Distribution Width CV 13.2 % (11.6-14.6); RBC Distribution Width SD 45.5 fl (35.1-43.9); Red Blood Count 3.36 M/mm3 (4.2-5.4); White Blood Count 8.1 K/mm3 (4.4-11.0)
[2024-12-24 22:23] LABS: AST(SGOT) 19 U/L (<=31); Alanine Aminotransfer ALT/SGPT 15 U/L (<=34); Albumin, Serum 3.4 g/dL (3.5-5.0); Alkaline Phosphatase 98 U/L (35-104); Anion Gap 12 (5-15); BUN 9 mg/dL (4-19); BUN/Creat Ratio 17.8 RATIO (10-20); Calcium,Total 9.0 mg/dL (7.6-11.0); Carbon Dioxide 21.8 mmol/L (21.0-32.0); Chloride 104 mmol/L (98-108); Cholesterol 300 mg/dL (<=200); Globulin 3.0 g/dL (2.2-4.2); Glucose 86 mg/dL (70-99); Low Density Lipoprotein Calc. 201 mg/dL; Potassium 3.8 mmol/L (3.3-5.1); Triglycerides 200 mg/dL; Very Low Density Lipoprotein 40 mg/dL (5-40); cholesterol:hdl ratio screen 5.09
== END | disposition home or self-care (01) ==
PROVIDERS: PCP Nurse Practitioner; Referring Provider Nurse Practitioner; Visit Provider Nurse Practitioner
DX: Z00.00 Encounter for general adult medical examination without abnormal findings (principal)
CPT/HCPCS: 80053; 80061; 85025